=== PATIENT | female | born 1960 | race Hispanic/Latino ===

== ENCOUNTER → 2017-04-22 | Day surgery (SDC) | payer MEDICARE ==
[2017-04-18 14:47] LABS: HEMOGLOBIN 11.4 g/dL (12.0-16.0); MEAN CORPUSCULAR HEMOGLOBIN 32.5 pg (28-32); MEAN CORPUSCULAR HGB CONC 32.6 g/dL (31-35); MEAN CORPUSCULAR VOLUME 99.7 fL (81-99); RED BLOOD COUNT 3.51 x10e6/uL (3.6-5.1)
[2017-04-18 14:48] LABS: BASOPHILS % 0.4 % (0.0-1.0); EOSINOPHILS # (AUTO) 0.2 (0.0-0.4); EOSINOPHILS % 1.5 % (0.0-6.0); LYMPHOCYTES # (AUTO) 2.7 (1.0-3.2); LYMPHOCYTES % 25.2 % (18.0-39.1); MONOCYTES # (AUTO) 0.6 (0.2-0.8); MONOCYTES % 5.6 % (4.4-11.3); NEUTROPHILS # (AUTO) 7.2 (2.1-6.9); NEUTROPHILS % 66.9 % (38.7-80.0); PLATELET COUNT 244 x10e3/uL (140-360); RED CELL DISTRIBUTION WIDTH 13.6 % (11.7-14.4)
[~2017-04-22] MED LIST: ASPIRIN81 MG PO; BUMETANIDE1 MG PO; CARVEDILOL12.5 MG PO; CVS OMEGA-3 KR1 EACH PO; FENTANYL CITRATE/PF 100MCG/2 ML INJ ONE; FLEXERIL10 MG PO; FLUOXETINE HCL20 MG PO; GLUCAGON FOR INJ 1 MG VIAL ONE; GLUCOPHAGE XR500 MG PO; HUMALOG MI100 UNIT/4 SQ; HYDROCODON-ACE1 EAC4 PO; HYZAAR 100-251 EACH PO; LASIX40 MG PO; LEVEMIR100 UNIT/1 SQ; LEVOTHYROXINE50 MCG PO; LIDOCAINE HCL 2% LOCAL INJ 5 ML SDV VIAL INJ ONE; LORATADINE10 MG PO; LYRICA50 MG PO; MELOXICAM15 MG PO; METOPROLOL SUCC50 MG PO; MIDAZOLAM HCL 2 MG/2 ML VIAL ONE; MULTIVITAMINS1 EAC7 PO; NEURONTIN600 MG PO; NOVOLIN 70/30 SQ; PRILOSEC20 MG PO; PROPOFOL IV EMULSION 10 MG/ML 50 ML VIAL ONE; SIMVASTATIN40 MG PO; ULTRAM50 MG PO; VICTOZA 2-0.6 MG/0.1 SQ; VITAMIN B-121000 MCG PO; VITAMIN D5000 UNIT PO; [UNRECOGNIZED DRUG - OTHER] PO
--- NOTE | 2017-04-22 13:17 | Operative Report ---
DATE OF PROCEDURE: April 22, 2017 REFERRING PHYSICIAN: Dr. Reyes. PROCEDURE PERFORMED: Colonoscopy and polypectomy. INDICATIONS FOR COLONOSCOPY: Colorectal cancer screening. Personal history of colon polyps. MEDICATION: Patient was done under MAC. Please see anesthesiologist's note. PROCEDURE: With patient in the left lateral decubitus position, the flexible fiberoptic Olympus colonoscope was inserted into the rectum with ease and advanced all the way to the cecum. The scope was then withdrawn slowly. Mucosa overlying the cecum appeared to be within normal limits. One polyp was hot biopsied from the ascending colon. The transverse appeared to be within normal limits. Diverticular disease was noted to involve the descending colon and the sigmoid colon. One polyp was snared from the sigmoid colon. The rectum appeared to be within normal limits. The scope was then retroflexed into the distal rectum and moderate-sized internal hemorrhoids were noted, none of which was actively bleeding. The scope was then straightened out. The rectosigmoid area as well as the distal rectal area were decompressed. The scope was subsequently withdrawn. Patient tolerated the procedure well. IMPRESSION: 1. Ascending colon polyp hot biopsied. 2. Diverticulosis. 3. Sigmoid colon polyp snared. 4. Internal hemorrhoids, none actively bleeding. PLAN: Follow up histology. Initiate high-fiber low-fat diet. Initiate high-fiber supplement. Patient will need a followup colonoscopy in 3 years. Job#: [id number] EV CC: DR. REYES
== END | disposition home or self-care (01) ==
LOC: OR 07:51
PROVIDERS: ATTEND Internal Medicine Gastroenterology
DX: Z12.11 Encounter for screening for malignant neoplasm of colon (principal); D12.5 Benign neoplasm of sigmoid colon; K57.30 Diverticulosis of large intestine without perforation or abscess without bleeding; K62.5 Hemorrhage of anus and rectum; K64.8 Other hemorrhoids; G47.33 Obstructive sleep apnea (adult) (pediatric); I10 Essential (primary) hypertension; E11.9 Type 2 diabetes mellitus without complications; E03.9 Hypothyroidism, unspecified; F32.9 Major depressive disorder, single episode, unspecified; Z01.810 Encounter for preprocedural cardiovascular examination; Z01.812 Encounter for preprocedural laboratory examination; Z79.4 Long term (current) use of insulin
CPT/HCPCS: 36415 ×2; 45384; 45385; 82948; 85025; 93005; J1610; J2001; J2250; 45378

== ENCOUNTER 2017-07-27 07:54 | Inpatient (IN) | payer MEDICARE, OTHER ==
[~2017-07-27] VITALS: Ht 147.3 cm; Wt 130.2 kg
[~2017-07-27 07:54] MED LIST changes: -FENTANYL CITRATE/PF 100MCG/2 ML INJ ONE; -GLUCAGON FOR INJ 1 MG VIAL ONE; -LIDOCAINE HCL 2% LOCAL INJ 5 ML SDV VIAL INJ ONE; -MIDAZOLAM HCL 2 MG/2 ML VIAL ONE; -PROPOFOL IV EMULSION 10 MG/ML 50 ML VIAL ONE
[2017-07-27] MEDS ORDERED: HYDROMORPHONE 1MG/1ML INJ IV STA (09:02)
[2017-07-27 09:33] LABS: BASOPHILS % 0.3 % (0.0-1.0); EOSINOPHILS # (AUTO) 0.1 (0.0-0.4); EOSINOPHILS % 0.9 % (0.0-6.0); HEMATOCRIT 34.4 % (34.2-44.1); HEMOGLOBIN 11.2 g/dL (12.0-16.0); LYMPHOCYTES # (AUTO) 2.1 (1.0-3.2); LYMPHOCYTES % 19.2 % (18.0-39.1); MEAN CORPUSCULAR HEMOGLOBIN 32.1 pg (28-32); MEAN CORPUSCULAR HGB CONC 32.6 g/dL (31-35); MEAN CORPUSCULAR VOLUME 98.6 fL (81-99); MONOCYTES # (AUTO) 0.8 (0.2-0.8); MONOCYTES % 7.2 % (4.4-11.3); NEUTROPHILS # (AUTO) 7.8 (2.1-6.9); NEUTROPHILS % 72.1 % (38.7-80.0); PLATELET COUNT 208 x10e3/uL (140-360); RED BLOOD COUNT 3.49 x10e6/uL (3.6-5.1)
[2017-07-27] MEDS ORDERED: HYDROMORPHONE 2MG/ML INJ IV ONE (09:45)
[2017-07-27] MEDS ORDERED: OMEPRAZOLE40 MG PEG (09:55)
[2017-07-27] MEDS ORDERED: NOVOLIN R100 UNIT/1 SC (09:55)
[2017-07-27] MEDS ORDERED: SIMVASTATIN20 MG PO (09:55)
[2017-07-27] MEDS ORDERED: FERROUS SULFAT325 MG PO (09:55)
[2017-07-27] MEDS ORDERED: LOSARTAN POTASS25 MG PO (09:55)
[2017-07-27] MEDS ORDERED: BUPROPION XL150 MG PO (09:55)
[2017-07-27] MEDS ORDERED: LYRICA50 MG PO (09:55)
[2017-07-27 09:56] LABS: ALBUMIN 3.5 g/dL (3.5-5.0); ALBUMIN/GLOBULIN RATIO 0.7 (0.8-2.0); ANION GAP 15.5 mmol/L (8-16); CALCIUM 9.5 mg/dL (8.4-10.2); CREATININE, SERUM 1.21 mg/dL (0.57-1.11); POTASSIUM 3.5 mmol/L (3.5-5.1)
--- NOTE | 2017-07-27 10:07 | Diagnostic Imaging Report ---
PROCEDURE:X-RAY RIGHT FOOT, COMPLETE COMPARISON:None. INDICATIONS:RIGHT FOOT PAIN FINDINGS: There are no fractures, dislocations, lytic or blastic lesions. No bony erosions. Spurring of the calcaneus at the insertion of the plantar fascia is noted. The bones are well-mineralized. There is soft tissue swelling. CONCLUSION: No acute bony abnormality. Antony Amador D.O. Dictated by: Antony Amador D.O. on 07/27/2017 at 10:16 Electronically approved by: Antony Amador D.O. on 07/27/2017 at 10:16
[2017-07-27] MEDS ORDERED: SODIUM CHLORIDE 0.9% 1000ML 1,000 ML IV SCH (10:15)
[2017-07-27] MEDS ORDERED: IOPAMIDOL 370 MG/ML 200 ML INFUS..BTL INJ ONE (13:14)
[2017-07-27] MEDS ORDERED: SODIUM CHLORIDE 0.9% 50ML 50 ML ONE (13:14)
[2017-07-27] MEDS ORDERED: DEXTROSE 50% SYRINGE 50 ML IV STA (14:26)
[2017-07-27] MEDS ORDERED: DEXTROSE 50% SYRINGE 50 ML IV ONE (14:28)
--- NOTE | 2017-07-27 15:29 | Diagnostic Imaging Report ---
CT scan of the RIGHT FOOT, WITH injected contrast. TECHNIQUE: Standard departmental protocols were used. Post-contrast images were obtained after the intravenous injection of 100 cc of Isovue-370. Sagittal and coronal reformatted images were obtained. HISTORY: Hurting, query abscess COMPARISON: None available FINDINGS: Bones: No acute displaced fracture. Moderate plantar and calcaneal enthesophytes. Os trigonum. Joints: Minimal to mild scattered degenerative changes. Soft Tissues: Prominent soft tissue edema of the foot. No drainable fluid collection. IMPRESSION: 1. No soft tissue abscess. 2. Diffuse soft tissue edema. Signed by: Dr. Alcides Mendoza D.O., M.M.M. on 07/27/2017 3:26 PM
[2017-07-27] MEDS ORDERED: HYDROMORPHONE 1MG/1ML INJ IV PRN (15:30)
[2017-07-27] MEDS ORDERED: HYDROMORPHONE 2MG/ML INJ IV PRN ×2 (15:45)
[2017-07-27] MEDS: PIPER-TAZ 3.375 GM 50 ML IV SCH (15:55)
[2017-07-27] MEDS: PREGABALIN 50 MG CAP PO SCH (16:46)
[2017-07-27] MEDS: CARVEDILOL 12.5 MG TAB PO SCH (16:46)
[2017-07-27] MEDS ORDERED: INSULIN ISOPHANE HUMAN SQ SCH (17:00)
[2017-07-27] MEDS ORDERED: INSULIN REGULAR HUMAN SQ SCH (17:00)
[2017-07-27] MEDS: VANCOMYCIN 1GM/NS 250 ML 250 ML IV SCH (17:10)
[2017-07-27] MEDS: BUMETANIDE 1 MG TAB PO SCH (17:10)
[2017-07-27] MEDS: TRAMADOL HCL 50 MG TAB PO SCH (18:23)
--- NOTE | 2017-07-27 20:53 | History and Physical ---
CHIEF COMPLAINT: A 57-year-old lady comes in with right foot pain. HISTORY OF PRESENT ILLNESS: Ms. Toribio is a 57-year-old lady with history of diabetes mellitus, with history of CHF who was in her usual state of health until one day prior to admission the patient noticed that her foot was swelling up and the swelling was getting uncontrolled. The patient called her primary care physician's office and was told to come to the emergency room because they would not be able to do anything for pain. She came in and was found to have cellulitis of the right lower extremity and admitted for the same. PAST MEDICAL HISTORY: History of congestive heart failure, history of diabetes mellitus, history of hypothyroidism, history of reflux esophagitis, history of neuropathy, history of chronic pain, history of depression, low back pain, allergies, hyperlipidemia and history of vitamin B12 deficiency. She also has history of obstructive sleep apnea where she wears BiPAP chronically. She sees at [facility] for her congestive heart failure. HOME MEDICATIONS: Novolin R 100 units, Bumetanide 2 mg daily, levothyroxine 25 mcg daily, aspirin 81 mg daily, omeprazole 20 mg daily, Lyrica 100 mg 2 capsules twice a day, tramadol 50 mg daily, fluoxetine 20 mg daily, cyclobenzaprine 10 mg, loratadine 10 mg, carvedilol 25 mg 1 tablet twice a day, simvastatin 20 mg nightly, losartan 25 mg daily, metformin 500 mg 1 tablet 3 times a day, , vitamin B12, iron tablets. She also has O2, ipratropium and probiotics. Ipratropium XL 150 mg daily. ALLERGIES: PHENERGAN, ITCHING AND SWELLING IS NOTED. PAST SURGICAL HISTORY: Cholecystectomy and tonsillectomy. SOCIAL HISTORY: No ETOH, no IV drug abuse. 7 years ago. She lives by herself. REVIEW OF SYSTEMS: Negative for chest pain, some shortness of breath, no nausea, vomiting or diarrhea. No palpitations. No rectal bleeding. No hematochezia, no hematemesis. No diplopia and no blurry vision. PHYSICAL EXAMINATION GENERAL: The patient is alert and oriented x3. Her pain, she says, is controlled at this time with pain medication. VITAL SIGNS: Temperature 97.8, blood pressure 147/65, pulse 79, respirations of 20, pulse oximetry 94% initially on arrival. HEENT: Normocephalic, atraumatic. Pupils are reactive to light and accommodation. CVS: S1 and S2 normal. Regular rate and rhythm. ABDOMEN: Nontender and nondistended. LUNGS: Decreased air entry into the lung bases but otherwise clear. ABDOMEN: Nontender, nondistended. EXTREMITIES: Right lower extremity with swelling and edema and erythema, wrapping around the dorsum of the foot all the way to the bottom of the foot, extending into the mid foot area. There is no extending lymphangitis. Tenderness to touch and palpation. Cannot put weight on the foot at this time. LABORATORY DATA: White count is 10.82, hemoglobin 11.2. Chemistry with sodium of 144, creatinine 1.21. BUN 28. IMAGING: Foot x-ray shows no acute abnormalities and CT extremity shows no diffuse abscess and diffuse soft tissue edema. ASSESSMENT: 1. Cellulitis of the right lower extremity. 2. Acute kidney injury. 3. Leukocytosis. 4. Diabetes mellitus, uncontrolled. 5. Obstructive sleep apnea. 6. Hypertension. 7. Hyperlipidemia. PLAN: The patient has been put on vancomycin and Zosyn, which we will continue. Every 6 hours vancomycin trough will be done. Continue antibiotics. Will give her some fluids. Will continue all her home medications. Continue on sliding scale. Further recommendations depending on clinical course. . Keep her foot elevated. Continue monitoring the patient in the hospital. Job#: [id number]
[2017-07-27] MEDS: SIMVASTATIN 20 MG TAB PO SCH (22:18)
[2017-07-28] MEDS: PIPER-TAZ 3.375 GM 50 ML IV SCH ×3 (01:24→14:45)
[2017-07-28] MEDS: TRAMADOL HCL 50 MG TAB PO SCH ×4 (01:24→20:49)
[2017-07-28] MEDS: MULTIVITAMINS/MINERALS TAB PO SCH (06:46)
[2017-07-28] MEDS: LEVOTHYROXINE SODIUM 25 MCG TABLET PO SCH (06:46)
[2017-07-28 07:56] VITALS: BP 138/52
[2017-07-28] MEDS ORDERED: LEVOTHYROXINE SODIUM 50 MCG TAB PO SCH (09:00)
[2017-07-28] MEDS: BUPROPION HCL 150 MG TABCR PO SCH (10:30)
[2017-07-28] MEDS: BUMETANIDE 1 MG TAB PO SCH ×2 (10:30→15:01)
[2017-07-28] MEDS: FLUOXETINE HCL 20 MG CAP PO SCH (10:30)
[2017-07-28] MEDS: LORATADINE 10 MG TAB PO SCH (10:30)
[2017-07-28] MEDS: PANTOPRAZOLE SOD 40 MG TABEC PO SCH (10:30)
[2017-07-28] MEDS: FERROUS SULFATE 325 MG TAB PO SCH (10:30)
[2017-07-28] MEDS: ASPIRIN 81 MG CHEW TAB PO SCH (10:30)
[2017-07-28] MEDS: PREGABALIN 50 MG CAP PO SCH ×2 (10:31→15:01)
[2017-07-28] MEDS: CARVEDILOL 12.5 MG TAB PO SCH ×2 (10:32→15:01)
[2017-07-28] MEDS: LOSARTAN POTASSIUM 25 MG TAB PO SCH (10:32)
[2017-07-28] MEDS: CYANOCOBALAMIN 1,000 MCG TAB PO SCH (10:41)
[2017-07-28 13:36] VITALS: BP 137/93
[2017-07-28] MEDS: VANCOMYCIN 1GM/NS 250 ML 250 ML IV SCH (15:01)
[2017-07-28 16:05] VITALS: BP 145/63
[2017-07-28 19:35] VITALS: BP 138/85
[2017-07-28] MEDS ORDERED: DEXTROSE 50% SYRINGE 50 ML IV PRN (19:45)
[2017-07-28 20:00] VITALS: BP 104/44
[2017-07-28] MEDS: INSULIN REGULAR, HUMAN 100 UNIT/1 ML 3ML VIAL SQ SCH (20:49)
[2017-07-28] MEDS: SIMVASTATIN 20 MG TAB PO SCH (20:49)
[2017-07-29] VITALS (8 sets, daily range): BP systolic 99–140; BP diastolic 39–60
[2017-07-29] MEDS ORDERED: SODIUM CHLORIDE 0.9% 250ML 250 ML ONE (00:31)
[2017-07-29] MEDS: PIPER-TAZ 3.375 GM 50 ML IV SCH ×3 (00:41→16:00)
[2017-07-29] MEDS: TRAMADOL HCL 50 MG TAB PO SCH ×4 (01:40→21:18)
[2017-07-29] MEDS: LEVOTHYROXINE SODIUM 25 MCG TABLET PO SCH (06:33)
[2017-07-29] MEDS: MULTIVITAMINS/MINERALS TAB PO SCH (06:33)
[2017-07-29] MEDS: INSULIN REGULAR, HUMAN 100 UNIT/1 ML 3ML VIAL SQ SCH ×6 (07:30→22:53)
[2017-07-29] MEDS: PREGABALIN 50 MG CAP PO SCH ×2 (09:00→17:00)
[2017-07-29] MEDS: BUMETANIDE 1 MG TAB PO SCH ×2 (09:00→17:00)
[2017-07-29] MEDS: FERROUS SULFATE 325 MG TAB PO SCH (09:00)
[2017-07-29] MEDS: LORATADINE 10 MG TAB PO SCH (09:00)
[2017-07-29] MEDS: LOSARTAN POTASSIUM 25 MG TAB PO SCH (09:00)
[2017-07-29] MEDS: CYANOCOBALAMIN 1,000 MCG TAB PO SCH (09:00)
[2017-07-29] MEDS: PANTOPRAZOLE SOD 40 MG TABEC PO SCH (09:00)
[2017-07-29] MEDS: FLUOXETINE HCL 20 MG CAP PO SCH (09:00)
[2017-07-29] MEDS: BUPROPION HCL 150 MG TABCR PO SCH (09:00)
[2017-07-29] MEDS: CARVEDILOL 12.5 MG TAB PO SCH ×2 (09:00→17:00)
[2017-07-29] MEDS: ASPIRIN 81 MG CHEW TAB PO SCH (09:00)
[2017-07-29 09:28] LABS: BASOPHILS % 0.1 % (0.0-1.0); EOSINOPHILS # (AUTO) 0.2 (0.0-0.4); EOSINOPHILS % 2.8 % (0.0-6.0); HEMATOCRIT 29.3 % (34.2-44.1); HEMOGLOBIN 9.6 g/dL (12.0-16.0); LYMPHOCYTES # (AUTO) 1.8 (1.0-3.2); LYMPHOCYTES % 25.8 % (18.0-39.1); MEAN CORPUSCULAR HEMOGLOBIN 32.2 pg (28-32); MEAN CORPUSCULAR HGB CONC 32.8 g/dL (31-35); MEAN CORPUSCULAR VOLUME 98.3 fL (81-99); MONOCYTES # (AUTO) 0.5 (0.2-0.8); MONOCYTES % 7.1 % (4.4-11.3); NEUTROPHILS # (AUTO) 4.6 (2.1-6.9); NEUTROPHILS % 64.1 % (38.7-80.0); PLATELET COUNT 203 x10e3/uL (140-360); RED BLOOD COUNT 2.98 x10e6/uL (3.6-5.1); RED CELL DISTRIBUTION WIDTH 12.8 % (11.7-14.4)
[2017-07-29 09:44] LABS: ANION GAP 15.8 mmol/L (8-16); CALCIUM 8.7 mg/dL (8.4-10.2); CREATININE, SERUM 1.63 mg/dL (0.57-1.11); POTASSIUM 3.8 mmol/L (3.5-5.1)
[2017-07-29] MEDS: VANCOMYCIN 1GM/NS 250 ML 250 ML IV SCH (16:00)
[2017-07-29] MEDS: SIMVASTATIN 20 MG TAB PO SCH (21:18)
[2017-07-30] VITALS (7 sets, daily range): BP systolic 102–123; BP diastolic 36–68
[2017-07-30] MEDS: TRAMADOL HCL 50 MG TAB PO SCH ×4 (00:03→20:28)
[2017-07-30] MEDS: PIPER-TAZ 3.375 GM 50 ML IV SCH ×3 (00:25→16:00)
[2017-07-30] MEDS: LEVOTHYROXINE SODIUM 25 MCG TABLET PO SCH (05:38)
[2017-07-30] MEDS: MULTIVITAMINS/MINERALS TAB PO SCH (05:43)
[2017-07-30] MEDS: INSULIN REGULAR, HUMAN 100 UNIT/1 ML 3ML VIAL SQ SCH ×6 (07:30→20:46)
[2017-07-30] MEDS: ASPIRIN 81 MG CHEW TAB PO SCH (09:00)
[2017-07-30] MEDS: FERROUS SULFATE 325 MG TAB PO SCH (09:00)
[2017-07-30] MEDS: BUMETANIDE 1 MG TAB PO SCH ×2 (09:00→17:00)
[2017-07-30] MEDS: PREGABALIN 50 MG CAP PO SCH ×2 (09:00→17:00)
[2017-07-30] MEDS: CYANOCOBALAMIN 1,000 MCG TAB PO SCH (09:00)
[2017-07-30] MEDS: LOSARTAN POTASSIUM 25 MG TAB PO SCH (09:00)
[2017-07-30] MEDS: FLUOXETINE HCL 20 MG CAP PO SCH (09:00)
[2017-07-30] MEDS: BUPROPION HCL 150 MG TABCR PO SCH (09:00)
[2017-07-30] MEDS: PANTOPRAZOLE SOD 40 MG TABEC PO SCH (09:00)
[2017-07-30] MEDS: CARVEDILOL 12.5 MG TAB PO SCH ×2 (09:00→17:00)
[2017-07-30] MEDS: LORATADINE 10 MG TAB PO SCH (09:00)
[2017-07-30] MEDS: VANCOMYCIN 1GM/NS 250 ML 250 ML IV SCH (16:00)
[2017-07-30] MEDS: SIMVASTATIN 20 MG TAB PO SCH (20:28)
[2017-07-31] MEDS: PIPER-TAZ 3.375 GM 50 ML IV SCH ×4 (00:06→23:59)
[2017-07-31] MEDS: TRAMADOL HCL 50 MG TAB PO SCH ×4 (00:11→18:02)
[2017-07-31 00:29] VITALS: BP 104/57
[2017-07-31 05:05] VITALS: BP 125/57
[2017-07-31] MEDS: LEVOTHYROXINE SODIUM 25 MCG TABLET PO SCH (05:30)
[2017-07-31] MEDS: MULTIVITAMINS/MINERALS TAB PO SCH (05:30)
[2017-07-31] MEDS: INSULIN REGULAR, HUMAN 100 UNIT/1 ML 3ML VIAL SQ SCH ×6 (07:30→20:21)
[2017-07-31] MEDS: FERROUS SULFATE 325 MG TAB PO SCH (08:24)
[2017-07-31] MEDS: CARVEDILOL 12.5 MG TAB PO SCH ×2 (08:24→17:00)
[2017-07-31] MEDS: LORATADINE 10 MG TAB PO SCH (08:24)
[2017-07-31] MEDS: BUPROPION HCL 150 MG TABCR PO SCH (08:24)
[2017-07-31] MEDS: CYANOCOBALAMIN 1,000 MCG TAB PO SCH (08:24)
[2017-07-31] MEDS: PREGABALIN 50 MG CAP PO SCH ×2 (08:24→17:22)
[2017-07-31] MEDS: FLUOXETINE HCL 20 MG CAP PO SCH (08:24)
[2017-07-31] MEDS: ASPIRIN 81 MG CHEW TAB PO SCH (08:24)
[2017-07-31] MEDS: PANTOPRAZOLE SOD 40 MG TABEC PO SCH (08:24)
[2017-07-31] MEDS: BUMETANIDE 1 MG TAB PO SCH ×2 (08:24→17:21)
[2017-07-31] MEDS: LOSARTAN POTASSIUM 25 MG TAB PO SCH (08:24)
[2017-07-31 08:26] LABS: BASOPHILS % 0.3 % (0.0-1.0); EOSINOPHILS # (AUTO) 0.1 (0.0-0.4); EOSINOPHILS % 2.1 % (0.0-6.0); HEMATOCRIT 28.5 % (34.2-44.1); HEMOGLOBIN 9.3 g/dL (12.0-16.0); LYMPHOCYTES # (AUTO) 1.3 (1.0-3.2); LYMPHOCYTES % 20.5 % (18.0-39.1); MEAN CORPUSCULAR HEMOGLOBIN 32.4 pg (28-32); MEAN CORPUSCULAR HGB CONC 32.6 g/dL (31-35); MEAN CORPUSCULAR VOLUME 99.3 fL (81-99); MONOCYTES # (AUTO) 0.4 (0.2-0.8); MONOCYTES % 5.9 % (4.4-11.3); NEUTROPHILS # (AUTO) 4.5 (2.1-6.9); NEUTROPHILS % 70.9 % (38.7-80.0); PLATELET COUNT 182 x10e3/uL (140-360); RED BLOOD COUNT 2.87 x10e6/uL (3.6-5.1); RED CELL DISTRIBUTION WIDTH 12.6 % (11.7-14.4)
[2017-07-31 08:57] LABS: ANION GAP 12.8 mmol/L (8-16); CALCIUM 8.7 mg/dL (8.4-10.2); CREATININE, SERUM 1.44 mg/dL (0.57-1.11); POTASSIUM 3.8 mmol/L (3.5-5.1)
[2017-07-31 10:19] VITALS: BP 132/60
[2017-07-31] MEDS: SODIUM CHLORIDE 0.9% 1000ML 1,000 ML IV SCH (10:47)
[2017-07-31] MEDS: VANCOMYCIN 1GM/NS 250 ML 250 ML IV SCH (16:00)
[2017-07-31 20:00] VITALS: BP 113/64
[2017-07-31] MEDS: SIMVASTATIN 20 MG TAB PO SCH (20:20)
[2017-07-31 21:06] VITALS: BP 113/64
[2017-08-01] VITALS: BP 119/52
[2017-08-01] MEDS: TRAMADOL HCL 50 MG TAB PO SCH ×2 (00:16→07:00)
[2017-08-01] MEDS: SODIUM CHLORIDE 0.9% 1000ML 1,000 ML IV SCH (03:00)
[2017-08-01 04:00] VITALS: BP 110/45
[2017-08-01] MEDS: LEVOTHYROXINE SODIUM 25 MCG TABLET PO SCH (05:50)
[2017-08-01] MEDS: MULTIVITAMINS/MINERALS TAB PO SCH (05:50)
[2017-08-01] MEDS: INSULIN REGULAR, HUMAN 100 UNIT/1 ML 3ML VIAL SQ SCH ×3 (07:30→11:30)
[2017-08-01 07:36] LABS: CREATININE, SERUM 1.29 mg/dL (0.57-1.11)
[2017-08-01 08:13] VITALS: BP 137/52
[2017-08-01] MEDS: CYANOCOBALAMIN 1,000 MCG TAB PO SCH (08:45)
[2017-08-01] MEDS: PREGABALIN 50 MG CAP PO SCH (08:45)
[2017-08-01] MEDS: BUMETANIDE 1 MG TAB PO SCH (08:45)
[2017-08-01] MEDS: PANTOPRAZOLE SOD 40 MG TABEC PO SCH (08:45)
[2017-08-01] MEDS: PIPER-TAZ 3.375 GM 50 ML IV SCH (08:45)
[2017-08-01] MEDS: BUPROPION HCL 150 MG TABCR PO SCH (08:45)
[2017-08-01] MEDS: ASPIRIN 81 MG CHEW TAB PO SCH (08:45)
[2017-08-01] MEDS: LORATADINE 10 MG TAB PO SCH (08:45)
[2017-08-01] MEDS: FLUOXETINE HCL 20 MG CAP PO SCH (08:45)
[2017-08-01] MEDS: FERROUS SULFATE 325 MG TAB PO SCH (08:46)
[2017-08-01] MEDS: LOSARTAN POTASSIUM 25 MG TAB PO SCH (08:47)
[2017-08-01] MEDS: CARVEDILOL 12.5 MG TAB PO SCH (08:47)
[2017-08-01] MEDS ORDERED: CLINDAMYCIN HC150 MG PO (10:52)
[2017-08-01 12:04] VITALS: BP 110/67
== END 2017-08-01 13:12 | disposition home or self-care (01) | DRG 603 ==
LOC: ER 07:54 → ERHOLD 16:06 → MED/SURG3 07-28 15:33
PROVIDERS: ADMIT Family Medicine; ATTEND Family Medicine
DX: L03.115 Cellulitis of right lower limb (principal); E11.22 Type 2 diabetes mellitus with diabetic chronic kidney disease; N17.9 Acute kidney failure, unspecified; E11.42 Type 2 diabetes mellitus with diabetic polyneuropathy; I13.0 Hypertensive heart and chronic kidney disease with heart failure and stage 1 through stage 4 chronic kidney disease, or unspecified chronic kidney disease; N18.3 Chronic kidney disease, stage 3 (moderate); I50.9 Heart failure, unspecified; E11.65 Type 2 diabetes mellitus with hyperglycemia; Z79.4 Long term (current) use of insulin; G47.33 Obstructive sleep apnea (adult) (pediatric); E78.5 Hyperlipidemia, unspecified; E03.9 Hypothyroidism, unspecified; D64.9 Anemia, unspecified
CPT/HCPCS: 36415; 80048; 80053; 80202; 82948; 83605; 85025; 87040; 94660; 99284; J2543; J3370; J7030; J7050; J7799; Q9967

== ENCOUNTER 2018-12-26 22:25 | Emergency (ER) | payer MEDICARE ==
[~2018-12-26] VITALS: Ht 147.3 cm; Wt 130.2 kg
[~2018-12-26 22:25] MED LIST changes: +BUPROPION XL150 MG PO; +CLINDAMYCIN HC150 MG PO; +FERROUS SULFAT325 MG PO; +LOSARTAN POTASS25 MG PO; +NOVOLIN R100 UNIT/1 SC; +OMEPRAZOLE40 MG PEG; +SIMVASTATIN20 MG PO
--- OUTSIDE RECORDS SUMMARY | 2018-12-26 22:28 | XMS REPORT ---
Author Author Roger Duran Organization [employer] Address Unknown Phone Unavailable Care Team Providers Care Account Management Assistant Name Role Phone Roger Duran CP Unavailable Allergies, Adverse Reactions, Alerts Substance Reaction Event Type N.K.D.A. Info Not Available Non Drug Allergy Problems Problem Type Condition Code Onset Dates Condition Status Assessment Oxygen dependent Z99.81 Active Assessment Obesity hypoventilation syndrome E66.2 Active Problem Obesity hypoventilation syndrome E66.2 Active Assessment Precordial pain R07.2 Active Problem Oxygen dependent Z99.81 Active Assessment Heart failure, unspecified I50.9 Active Assessment Obstructive sleep apnea G47.33 Active Assessment Abnormal electrocardiogram R94.31 Active Assessment Hypertensive heart disease with heart failure I11.0 Active Medications Medication Code System Code Instructions Start Date End Date Status Dosage Carvedilol ND 39716447901 25 MG Orally Twice a day Active not defined Tramadol HCl ND 42144920385 50 MG Orally every 6 hrs Active 1 tablet as needed Meloxicam ND 59942105606 15 MG Orally Once a day Active 1 tablet Loratadine ND 12226293581 10 MG Orally Once a day Active 1 tablet CPAP NDC 0 Oral Active 1 tab Insulin NDC 0 70/30 Active 2 daily Cyclobenzaprine HCl ND 56513200259 10 MG Orally Three times a day Active 1 tablet Losartan Potassium ND 64011946422 25 MG Orally Once a day Active 1 tablet Pregabalin ND 07081509645 100 MG Orally Twice a day Active 1 capsule Levothyroxine Sodium ND 29699284242 25 MCG Orally Once a day Active 1 tablet Metformin HCl ND 40285137783 1000 MG Orally Twice a day Active 1 tablet with meals Krill Oil NDC 0 Orally Active not defined Aspirin ND 07557268373 81 MG Orally Once a day Active 1 tablet Omeprazole ND 41213439198 20 MG Orally Once a day Active 1 capsule Vitamin B-Complex ND 11169800209 Orally Active not defined Multivitamin NDC 0 Active as direct Bumetanide [facility] 86787690059 1 MG Orally Once a day Active 1 tablet Simvastatin [facility] 70466601129 20 MG Orally Once a day Active 1 tablet in the evening Vital Signs Date/Time: Mar 16, 2017 BMI 58.00 Index Weight 297 lbs Height 5'0 in Cardiac Monitoring Heart Rate 88 /min Blood Pressure Diastolic 64 mm Hg Blood Pressure Systolic 134 mm Hg Results No Known Results Summary Purpose [employer] Submission
--- OUTSIDE RECORDS SUMMARY | 2018-12-26 22:29 | XMS REPORT ---
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 Are you a: Former smoker Quit in 2007Mar 08, 2016 Alcohol: . None Mar 08, 2016 Summary Purpose eClinicalWorks Submission
--- OUTSIDE RECORDS SUMMARY | 2018-12-26 22:29 | XMS REPORT ---
Author Author [facility] Address Unknown Phone Unavailable Care Team Providers Care Film Drying Machine Operator Name Role Phone Angus LAZARO Unavailable Unavailable Problems This patient has no known problems. Allergies, Adverse Reactions, Alerts This patient has no known allergies or adverse reactions. Medications This patient has no known medications. Encounters Start Date/Time End Date/Time Encounter Type Admission Type Attending [facility] Care Facility Care Department Encounter ID 2017-07-20 00:00:00 2017-07-20 00:00:00 Outpatient [facility] [id number] 2017-06-06 00:00:00 2017-06-06 00:00:00 Outpatient [facility] [id number] 2017-06-02 14:42:59 2017-06-02 14:42:59 Outpatient [facility] [id number] 2017-05-10 00:00:00 2017-05-10 00:00:00 Outpatient [facility] [id number] 2017-05-02 13:49:43 2017-05-02 13:49:43 Outpatient [facility] [id number] 2017-05-02 12:51:25 2017-05-02 12:51:25 Outpatient [facility] [id number] 2017-04-13 08:48:34 2017-04-13 08:48:34 Outpatient [facility] [id number] 2017-03-30 00:00:00 2017-03-30 00:00:00 Outpatient [facility] [id number] 2017-03-23 10:00:11 2017-03-23 10:00:11 Outpatient [facility] [id number] 2017-03-20 00:00:00 2017-03-20 00:00:00 Outpatient [facility] [id number] 2017-03-09 00:00:00 2017-03-09 00:00:00 Outpatient [facility] [id number] 2017-03-08 00:00:00 2017-03-08 00:00:00 Outpatient [facility] [id number] 2017-02-17 15:42:22 2017-02-17 15:42:22 Outpatient [facility] [id number] 2017-01-30 10:06:03 2017-01-30 10:06:03 Outpatient [facility] [id number] 2017-01-19 00:00:00 2017-01-19 00:00:00 Outpatient [facility] [id number] 2017-01-04 12:46:57 2017-01-04 12:46:57 Outpatient [facility] [id number] 2016-12-02 10:50:46 2016-12-02 10:50:46 Outpatient [facility] [id number] Results Test Description Test Time Test Comments Text Results Atomic Results Result Comments CT FOOT RIGHT W [place] [address] Patient Name: ASHA ESCALANTE MR #: [id number] : 1960 Age/Sex: 57/F Req #: [id number] Adm Physician: Ordered by: VALENTINA LAZARO MD Report #: [id number] Location: ER Room/Bed: Procedure: [id number] CT/CT FOOT RIGHT W Exam Date: 07/27/17 Exam Time: 1125 REPORT STATUS: Signed CT scan of the RIGHT FOOT, WITH injected contrast. TECHNIQUE: Standard departmental protocols were used. Post-contrast images were obtained after the intravenous injection of 100 cc of Isovue-370. Sagittal and coronal reformatted images were obtained. HISTORY: Hurting, query abscess COMPARISON: None available FINDINGS: Bones: No acute displaced fracture. Moderate plantar and calcaneal enthesophytes. Os trigonum. Joints: Minimal to mild scattered degenerative changes. Soft Tissues: Prominent soft tissue edema of the foot. No drainable fluid collection. IMPRESSION: 1. No soft tissue abscess. 2. Diffuse soft tissue edema. Signed by: Dr. Jose Mendoza D.O., M.M.M. on 07/27/2017 3:26 PM Dictated By: JOSE MENDOZA DO 1526 Transcribed By: [place] on 07/27/17 1526 COPY TO: VALENTINA LAZARO MD FOOT RIGHT COMPLETE [place] [address] Patient Name: ASHA ESCALANTE MR #: [id number] : 1960 Age/Sex: 57/F Req #: [id number] Adm Physician: Ordered by: VALENTINA LAZARO MD Report #: [id number] Location: ER Room/Bed: Procedure: [id number] DX/FOOT RIGHT COMPLETE Exam Date: 07/27/17 Exam Time: 0845 REPORT STATUS: Signed PROCEDURE: X-RAY RIGHT FOOT, COMPLETE COMPARISON: None. INDICATIONS: RIGHT FOOT PAIN FINDINGS: There are no fractures, dislocations, lytic or blastic lesions. No bony erosions. Spurring of the calcaneus at the insertion of the plantar fascia is noted. The bones are well-mineralized. There is soft tissue swelling. CONCLUSION: No acute bony abnormality. Lisbeth Amador D.O. Dictated by: Lisbeth Amador D.O. on 07/27/2017 at 10:16 Electronically approved by: Lisbeth Amador D.O. on 07/27/2017 at 10:16 Dictated By: LISBETH AMADOR DO 1016 Transcribed By: KINA on 07/27/17 1016 COPY TO: VALENTINA LAZARO MD
--- OUTSIDE RECORDS SUMMARY | 2018-12-26 22:29 | XMS REPORT ---
Author Author Roger Duran Organization [employer] Address Unknown Phone Unavailable Care Team Providers Care Separator Operator Shellfish Meats Name Role Phone Roger Duran CP Unavailable [...] Instructions Start Date End Date Status Dosage Krill Oil NDC 0 Orally Active not defined Multivitamin NDC 0 Active as direct Simvastatin NDC 19009305522 20 MG Orally Once a day Active 1 tablet in the evening Loratadine ND 51539590525 10 MG Orally Once a day Active 1 tablet CPAP NDC 0 Oral Active 1 tab Pregabalin NDC 12657757295 100 MG Orally Twice a day Active 1 capsule Carvedilol ND 78675210065 25 MG Orally Twice a day Active not defined Losartan Potassium ND 89491509094 25 MG Orally Once a day Active 1 tablet Meloxicam ND 94193240424 15 MG Orally Once a day Active 1 tablet Levothyroxine Sodium NDC 29756822547 25 MCG Orally Once a day Active 1 tablet Metformin HCl ND 23324569852 1000 MG Orally Twice a day Active 1 tablet with meals Aspirin ND 49308232930 81 MG Orally Once a day Active 1 tablet Insulin NDC 0 70/30 Active 2 daily Cyclobenzaprine HCl ND 58912104474 10 MG Orally Three times a day Active 1 tablet Vitamin B-Complex ND 88532473023 Orally Active not defined Bumetanide ND 56454767950 1 MG Orally Once a day Active 1 tablet Tramadol HCl [facility] [place] [place] 42543290291 50 MG Orally every 6 hrs Active 1 tablet as needed Omeprazole [facility] [place] 15445365394 20 MG Orally Once a day Active 1 capsule Vital Signs Date/Time: November 22, 2016 BMI 60.34 Index Weight 309 lbs Height 5'0 in Cardiac Monitoring Heart Rate 77 /min Blood Pressure Diastolic 52 mm Hg Blood Pressure Systolic 128 mm Hg Results No Known Results Summary Purpose eClinicalWorks Submission
--- OUTSIDE RECORDS SUMMARY | 2018-12-26 22:29 | XMS REPORT ---
Author Author Roger Duran Organization [employer] Address Unknown Phone Unavailable Care Team Providers Care Secretary Of Police Name Role Phone Roger Duran CP Unavailable Allergies, Adverse Reactions, Alerts Substance Reaction Event Type N.K.D.A. 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 Active Assessment Acute systolic (congestive) heart failure I50.21 Active Assessment Hypertensive heart disease with heart failure I11.0 Active Assessment Other specified symptoms and signs involving the circulatory and respiratory systems R09.89 Active Medications Medication Code System Code Instructions Start Date End Date Status Dosage Krill Oil [facility] [address] Orally Active not defined Bumetanide ND 82251848778 1 MG Orally Once a day Active 1 tablet Meloxicam ND 84424307459 15 MG Orally Once a day Active 1 tablet Loratadine ND 50159067781 10 MG Orally Once a day Active 1 tablet Insulin ND 0 70/30 Active 2 daily Pregabalin ND 72039740066 100 MG Orally Twice a day Active 1 capsule Tramadol HCl ND 98055415161 50 MG Orally every 6 hrs Active 1 tablet as needed Vitamin B-Complex ND 41768406228 Orally Active not defined Losartan Potassium ND 11112325030 25 MG Orally Once a day Active 1 tablet Omeprazole ND 44727653396 20 MG Orally Once a day Active 1 capsule Cyclobenzaprine HCl ND 42355901732 10 MG Orally Three times a day Active 1 tablet CPAP NDC 0 Oral Active 1 tab Aspirin ND 20695282188 81 MG Orally Once a day Active 1 tablet Levothyroxine Sodium ND 91546931611 25 MCG Orally Once a day Active 1 tablet Simvastatin [facility] 96126316958 20 MG Orally Once a day Active 1 tablet in the evening Multivitamin NDC 0 Active as direct Carvedilol [facility] 57814319678 25 MG Orally Twice a day Active not defined Metformin HCl [facility] 22099852612 1000 MG Orally Twice a day Active 1 tablet with meals Vital Signs Date/Time: Aug 08, 2017 BMI 55.26 Index Weight 283 lbs Height 5'0 in Cardiac Monitoring Heart Rate 76 /min Blood Pressure Diastolic 52 mm Hg Blood Pressure Systolic 140 mm Hg Results No Known Results Summary Purpose eClinicalWorks Submission
--- OUTSIDE RECORDS SUMMARY | 2018-12-26 22:29 | XMS REPORT ---
Author Roger Montenegro Organization [employer] Address Unknown Phone Unavailable Care Team Providers Care Mold Sheet Cleaner Name Role Phone Roger Duran CP Unavailable Allergies, Adverse Reactions, Alerts Substance Reaction Event Type N.K.D.A. 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-hx of Hyperlipidemia,High BP,CHF,CP [place], [place] November 09, 2015 [place] Roger [place], [place] December 01, 2015 F/U TESTING [place] December 01, 2015 Problems Problem Type Condition ICD-9 Code Onset Dates Condition Status Assessment Abnormal electrocardiogram R94.31 Active Assessment Hypertensive heart disease with heart failure I11.0 Active Assessment Precordial pain R07.2 Active Assessment Heart failure, unspecified I50.9 Active Assessment Obstructive sleep apnea G47.33 Active Medications Medication Code System Code Instructions Start Date End Date Status Dosage Cyclobenzaprine HCl [facility] [address]-64 10 MG Orally Three times a day Active 1 tablet Bumetanide [facility] [address]-71 1 MG Orally Once a day Active 1 tablet Multivitamin Unknown 0 Active as direct Levothyroxine Sodium [facility] [address]-83 25 MCG Orally Once a day Active 1 tablet Krill Oil Unknown 0 Orally Active Unknown Carvedilol [facility] [address]-82 25 MG Orally Twice a day Active Unknown Aspirin [facility] [address]-74 81 MG Orally Once a day Active 1 tablet CPAP Unknown 0 Oral Active 1 tab Metformin HCl [facility] [address]-55 500 MG Orally Twice a day Active 1 tablet with meals Loratadine [facility] [address]-63 10 MG Orally Once a day Active 1 tablet Vitamin B-Complex [facility] [address] Orally Active Unknown Pregabalin [facility] [address]-88 100 MG Orally Twice a day Active 1 capsule Insulin Unknown 0 70/30 Active 2 daily Tramadol HCl [facility] [address]-53 50 MG Orally every 6 hrs Active 1 tablet as needed Omeprazole [facility] [address]-68 20 MG Orally Once a day Active 1 capsule Simvastatin [facility] [address]-32 20 MG Orally Once a day Active 1 tablet in the evening Social History Social History Element Qualifiers Date Reported Smoking: . Are you a: Former smoker Quit in 2007Mar 08, 2016 Alcohol: . None Mar 08, 2016 Vital Signs Date/Time: Mar 08, 2016 Weight 329 lbs Cardiac Monitoring Heart Rate 86 /min Blood Pressure Diastolic 40 mm Hg Blood Pressure Systolic 146 mm Hg Summary Purpose eClinicalWorks Submission
--- OUTSIDE RECORDS SUMMARY | 2018-12-26 22:29 | XMS REPORT ---
Author Author Roger Duran Organization [employer] Address Unknown Phone Unavailable Care Team Providers Care Licensed Pharmacist Name Role Phone Roger Duran CP Unavailable Allergies, Adverse Reactions, Alerts Substance Reaction Event Type N.K.D.A. Info Not Available Non Drug Allergy Problems Problem Type Condition Code Onset Dates Condition Status Problem Obesity hypoventilation syndrome E66.2 Active Assessment Precordial pain R07.2 Active Problem Oxygen dependent Z99.81 Active Assessment Heart failure, unspecified I50.9 Active Assessment Obstructive sleep apnea G47.33 Active Assessment Abnormal electrocardiogram R94.31 Active Assessment Hypertensive heart disease with heart failure I11.0 Active Medications Medication Code System Code Instructions Start Date End Date Status Dosage Krill Oil NDC 0 Orally Active not defined Tramadol HCl ND 80515935502 50 MG Orally every 6 hrs Active 1 tablet as needed Meloxicam ND 56588915635 15 MG Orally Once a day Active 1 tablet Levothyroxine Sodium ND 80272050783 25 MCG Orally Once a day Active 1 tablet Aspirin ND 49739990166 81 MG Orally Once a day Active 1 tablet Pregabalin ND 59796930090 100 MG Orally Twice a day Active 1 capsule Bumetanide ND 75022986205 1 MG Orally Once a day Active 1 tablet Vitamin B-Complex ND 44862574728 Orally Active not defined Losartan Potassium ND 43532518748 25 MG Orally Once a day Active 1 tablet Cyclobenzaprine HCl ND 78659642100 10 MG Orally Three times a day Active 1 tablet Omeprazole ND 43547430677 20 MG Orally Once a day Active 1 capsule CPAP NDC 0 Oral Active 1 tab Insulin NDC 0 70/30 Active 2 daily Loratadine ND 13306314521 10 MG Orally Once a day Active 1 tablet Simvastatin ND 44420132381 20 MG Orally Once a day Active 1 tablet in the evening Multivitamin NDC 0 Active as direct Carvedilol ND 61891514644 25 MG Orally Twice a day Active not defined Metformin HCl [facility] 63334148051 1000 MG Orally Twice a day Active 1 tablet with meals Vital Signs Date/Time: September 21, 2016 BMI 60.73 Index Weight 311 lbs Height 5'0 in Cardiac Monitoring Heart Rate 75 /min Blood Pressure Diastolic 54 mm Hg Blood Pressure Systolic 126 mm Hg Results No Known Results Summary Purpose eClinicalWorks Submission
--- OUTSIDE RECORDS SUMMARY | 2018-12-26 22:29 | XMS REPORT ---
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 Active Assessment Atheroscler of [place] artery of both legs with intermit claudication I70.213 Active Assessment Acute systolic (congestive) heart failure I50.21 Active Assessment Hypertensive heart disease with heart failure I11.0 Active Assessment Other specified symptoms and signs involving the circulatory and respiratory systems R09.89 Active Medications Medication Code System Code Instructions Start Date End Date Status Dosage Carvedilol ND 94733971651 25 MG Orally Twice a day Active not defined Multivitamin NDC 0 Active as direct Losartan Potassium ND 98230329280 25 MG Orally Once a day Active 1 tablet Omeprazole ND 79894133020 20 MG Orally Once a day Active 1 capsule Aspirin ND 36715130857 81 MG Orally Once a day Active 1 tablet Pregabalin ND 45601037522 100 MG Orally Twice a day Active 1 capsule Tramadol HCl ND 39915729414 50 MG Orally every 6 hrs Active 1 tablet as needed Simvastatin ND 93133842863 20 MG Orally Once a day Active 1 tablet in the evening Vitamin B-Complex ND 33016256081 Orally Active not defined Metformin HCl ND 36913300078 1000 MG Orally Twice a day Active 1 tablet with meals Levothyroxine Sodium ND 55397439350 25 MCG Orally Once a day Active 1 tablet Insulin NDC 0 70/30 Active 2 daily CPAP NDC 0 Oral Active 1 tab Loratadine ND 79848961354 10 MG Orally Once a day Active 1 tablet Meloxicam [facility] 39002332651 15 MG Orally Once a day Active 1 tablet Bumetanide [facility] 30765313667 1 MG Orally Once a day Active 1 tablet Krill Oil [facility] [address] Orally Active not defined Cyclobenzaprine HCl [facility] 24125238912 10 MG Orally Three times a day Active 1 tablet Vital Signs Date/Time: November 07, 2017 BMI 56.63 Index Weight 290 lbs Height 5'0 in Cardiac Monitoring Heart Rate 67 /min Blood Pressure Diastolic 58 mm Hg Blood Pressure Systolic 136 mm Hg Results No Known Results Summary Purpose [employer] Submission
--- OUTSIDE RECORDS SUMMARY | 2018-12-26 22:29 | XMS REPORT ---
Author Author Roger Duran Organization [employer] Address Unknown Phone Unavailable Care Team Providers Care Flooring Mechanic Name Role Phone Roger Duran CP Unavailable [...] Instructions Start Date End Date Status Dosage Pregabalin ND 46279758465 100 MG Orally Twice a day Active 1 capsule CPAP NDC 0 Oral Active 1 tab Tramadol HCl ND 12592759003 50 MG Orally every 6 hrs Active 1 tablet as needed Krill Oil NDC 0 Orally Active not defined Cyclobenzaprine HCl ND 14023810526 10 MG Orally Three times a day Active 1 tablet Simvastatin ND 63433801658 20 MG Orally Once a day Active 1 tablet in the evening Loratadine ND 89256816425 10 MG Orally Once a day Active 1 tablet Bumetanide ND 82931749833 1 MG Orally Once a day Active 1 tablet Aspirin ND 11798437122 81 MG Orally Once a day Active 1 tablet Carvedilol ND 83734988736 25 MG Orally Twice a day Active not defined Levothyroxine Sodium ND 77539451945 25 MCG Orally Once a day Active 1 tablet Multivitamin NDC 0 Active as direct Omeprazole NDC 36171436359 20 MG Orally Once a day Active 1 capsule Insulin NDC 0 70/30 Active 2 daily Metformin HCl ND 91911506525 500 MG Orally Twice a day Active 1 tablet with meals Vitamin B-Complex ND 35571955803 Orally Active not defined Vital Signs Date/Time: Jun 07, 2016 BMI 61.71 Index Weight 316 lbs Height 5'0 in Cardiac Monitoring Heart Rate 82 /min Blood Pressure Diastolic 58 mm Hg Blood Pressure Systolic 138 mm Hg Results No Known Results Summary Purpose [employer] Submission
--- OUTSIDE RECORDS SUMMARY | 2018-12-26 22:29 | XMS REPORT ---
Author Author Roger Duran Organization [employer] Address Unknown Phone Unavailable Care Team Providers Care Band Saw Runner Name Role Phone Roger Duran CP Unavailable [...] Date End Date Status Dosage Pregabalin ND 79452362858 100 MG Orally Twice a day Active 1 capsule Levothyroxine Sodium ND 53742117486 25 MCG Orally Once a day Active 1 tablet Krill Oil NDC 0 Orally Active not defined Vitamin B-Complex ND 19923615772 Orally Active not defined Cyclobenzaprine HCl ND 35283797094 10 MG Orally Three times a day Active 1 tablet Aspirin ND 20693912803 81 MG Orally Once a day Active 1 tablet Loratadine ND 16997167245 10 MG Orally Once a day Active 1 tablet Multivitamin NDC 0 Active as direct Bumetanide ND 90836215108 1 MG Orally Once a day Active 1 tablet CPAP NDC 0 Oral Active 1 tab Insulin NDC 0 70/30 Active 2 daily Tramadol HCl ND 36262227161 50 MG Orally every 6 hrs Active 1 tablet as needed Omeprazole ND 32888913494 20 MG Orally Once a day Active 1 capsule Losartan Potassium ND 38768367512 25 MG Orally Once a day Active 1 tablet Carvedilol ND 68640028542 25 MG Orally Twice a day Active not defined Simvastatin ND 25062649521 20 MG Orally Once a day Active 1 tablet in the evening Metformin HCl [facility] 91020555224 1000 MG Orally Twice a day Active 1 tablet with meals Meloxicam [facility] 84231400621 15 MG Orally Once a day Active 1 tablet Vital Signs Date/Time: Jun 01, 2017 BMI 56.44 Index Weight 289 lbs Height 5'0 in Cardiac Monitoring Heart Rate 75 /min Blood Pressure Diastolic 72 mm Hg Blood Pressure Systolic 120 mm Hg Results No Known Results Summary Purpose [employer] Submission
--- OUTSIDE RECORDS SUMMARY | 2018-12-26 22:29 | XMS REPORT ---
Author Roger Montenegro Organization [employer] Address Unknown Phone Unavailable Care Team Providers Care Automotive Dismantler Name Role Phone Roger Duran CP Unavailable Allergies, Adverse Reactions, Alerts Substance Reaction Event Type N.K.D.A. 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-hx of Hyperlipidemia,High BP,CHF,CP Roger Duran MD, [place] [...] Start Date End Date Status Dosage Pregabalin [facility] [address]-96 100 MG Orally Twice a day Active 1 capsule Simvastatin [facility] [address]-96 20 MG Orally Once a day Active 1 tablet in the evening Bumetanide [facility] [address]-09 1 MG Orally Once a day Active 1 tablet Aspirin [facility] [address]-36 81 MG Orally Once a day Active 1 tablet Carvedilol [facility] [address]-99 25 MG Orally Active Unknown Insulin Unknown 0 70/30 Active 2 daily Cyclobenzaprine HCl [facility] [address]-48 10 MG Orally Three times a day Active 1 tablet Tramadol HCl [facility] [address]-28 50 MG Orally every 6 hrs Active 1 tablet as needed Vitamin B-Complex [facility] [address]35[address] Orally Active Unknown Multivitamin Unknown 0 Active as direct Loratadine [facility] [address]-00 10 MG Orally Once a day Active 1 tablet Krill Oil Unknown 0 Orally Active Unknown Omeprazole [facility] [address]-89 20 MG Orally Once a day Active 1 capsule Levothyroxine Sodium [facility] [address]-21 25 MCG Orally Once a day Active 1 tablet Metformin HCl [facility] [address]-38 500 MG Orally Twice a day Active 1 tablet with meals CPAP Unknown 0 Oral Active 1 tab Social History Social History Element Qualifiers Date Reported Smoking: . Are you a: Former smoker Quit in 2007Mar 08, 2016 Alcohol: . None Mar 08, 2016 Vital Signs Date/Time: December 01, 2015 Weight 335 lbs Cardiac Monitoring Heart Rate 82 /min Blood Pressure Diastolic 68 mm Hg Blood Pressure Systolic 132 mm Hg Summary Purpose [employer] Submission
--- OUTSIDE RECORDS SUMMARY | 2018-12-26 22:29 | XMS REPORT ---
Author Author Roger Duran Organization [employer] Address Unknown Phone Unavailable Care Team Providers Care Armature Coil Winder Name Role Phone Roger Duran CP Unavailable Allergies, Adverse Reactions, Alerts Substance Reaction Event Type N.K.D.A. 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-hx of Hyperlipidemia,High BP,CHF,CP Roger Duran MD, [place] November 09, 2015 Problems Problem Type Condition ICD-9 Code Onset Dates Condition Status Assessment Obstructive sleep apnea G47.33 Active Assessment Hypertensive heart disease with heart failure I11.0 Active Assessment Heart failure, unspecified I50.9 Active Assessment Abnormal electrocardiogram R94.31 Active Assessment Other symptoms involving cardiovascular system R09.89 Active Assessment Precordial pain R07.2 Active Assessment Pure hypercholesterolemia E78.0 Active Assessment Hypothyroidism E03.9 Active Assessment Atheroscler of [place] artery of both legs with intermit claudication I70.213 Active Assessment DM w/o complication type II, uncontrolled E11.65 Active Assessment Shortness of breath R06.02 Active Assessment GERD (gastroesophageal reflux disease) K21.9 Active Assessment Obesity E66.9 Active Medications Medication Code System Code Instructions Start Date End Date Status Dosage Krill Oil Unknown 0 Orally Active Unknown CPAP Unknown 0 Oral Active 1 tab Levothyroxine Sodium [facility] [address]-83 25 MCG Orally Once a day Active 1 tablet Bumetanide [facility] [address]-98 1 MG Orally Once a day Active 1 tablet Metformin HCl [facility] [address]-02 500 MG Orally Twice a day Active 1 tablet with meals Aspirin [facility] [address]-01 81 MG Orally Once a day Active 1 tablet Simvastatin [facility] [address]-79 20 MG Orally Once a day Active 1 tablet in the evening Loratadine [facility] [address]-49 10 MG Orally Once a day Active 1 tablet Tramadol HCl [facility] [address]-39 50 MG Orally every 6 hrs Active 1 tablet as needed Cyclobenzaprine HCl [facility] [address]-52 10 MG Orally Three times a day Active 1 tablet Insulin Unknown 0 70/30 Active 2 daily Carvedilol [facility] [address]-92 25 MG Orally Active Unknown Pregabalin [facility] [address]-14 100 MG Orally Twice a day Active 1 capsule Multivitamin Unknown 0 Active as direct Vitamin B-Complex [facility] [address] Orally Active Unknown Omeprazole [facility] [address]-49 20 MG Orally Once a day Active 1 capsule Social History Social History Element Qualifiers Date Reported Smoking: . Are you a: Former smoker Quit in 2007Mar 08, 2016 Alcohol: . None Mar 08, 2016 Vital Signs Date/Time: November 09, 2015 Weight 334 lbs Cardiac Monitoring Heart Rate 80 /min Blood Pressure Diastolic 66 mm Hg Blood Pressure Systolic 140 mm Hg Summary Purpose [employer]Works Submission
--- OUTSIDE RECORDS SUMMARY | 2018-12-26 22:29 | XMS REPORT ---
Author Author Roger Duran Organization [employer] Address Unknown Phone Unavailable Care Team Providers Care Electrolysis Engineer Name Role Phone Roger Duran CP Unavailable [...] Instructions Start Date End Date Status Dosage Tramadol HCl [facility] 80953084267 50 MG Orally every 6 hrs Active 1 tablet as needed Carvedilol ND 39547081609 25 MG Orally Twice a day Active not defined Vitamin B-Complex [facility] 58251598210 Orally Active not defined Levothyroxine Sodium ND 28166542861 25 MCG Orally Once a day Active 1 tablet CPAP NDC 0 Oral Active 1 tab Losartan Potassium ND 27147205722 25 MG Orally Once a day Active 1 tablet Bumetanide ND 83136364664 1 MG Orally Once a day Active 1 tablet Meloxicam ND 45660753900 15 MG Orally Once a day Active 1 tablet Pregabalin ND 22490412614 100 MG Orally Twice a day Active 1 capsule Omeprazole ND 45016524244 20 MG Orally Once a day Active 1 capsule Cyclobenzaprine HCl ND 09710754698 10 MG Orally Three times a day Active 1 tablet Aspirin ND 97838640315 81 MG Orally Once a day Active 1 tablet Insulin NDC 0 70/30 Active 2 daily Loratadine ND 10718153055 10 MG Orally Once a day Active 1 tablet Simvastatin ND 86045402788 20 MG Orally Once a day Active 1 tablet in the evening Krill Oil NDC 0 Orally Active not defined Multivitamin NDC 0 Active as direct Metformin HCl [facility] 25319856245 1000 MG Orally Twice a day Active 1 tablet with meals Vital Signs Date/Time: Jul 25, 2017 BMI 55.46 Index Weight 284 lbs Height 5'0 in Cardiac Monitoring Heart Rate 79 /min Blood Pressure Diastolic 54 mm Hg Blood Pressure Systolic 130 mm Hg Results No Known Results Summary Purpose [employer]Works Submission
--- NOTE | 2018-12-26 23:43 | Diagnostic Imaging Report ---
EXAMINATION: PA and lateral views of the chest. COMPARISON: Nov 05 2011 CLINICAL HISTORY: chest pain DISCUSSION: Lines/tubes: None. Lungs: The lungs are well inflated and clear. No pneumonia or pulmonary edema. Pleura: No pleural effusion or pneumothorax. Heart and mediastinum: The cardiomediastinal silhouette is normal. Bones and soft tissues: No acute bony abnormalities. IMPRESSION: No acute cardiopulmonary abnormalities. Signed by: Dr. Pavan Casey M.D. on 12/26/2018 11:40 PM
--- NOTE | 2018-12-26 23:45 | Diagnostic Imaging Report ---
Exam: right hip 2 views History: pain Comparison: None. Findings: No fracture or malalignment. Joint spaces preserved. No abnormal soft tissue calcification or soft tissue defect. Impression: No acute osseous abnormality Signed by: Dr. Pavan Casey M.D. on 12/26/2018 11:42 PM
== END 2018-12-27 00:42 | disposition home or self-care (01) ==
LOC: ER 22:25
DX: R07.89 Other chest pain (principal); R06.00 Dyspnea, unspecified; M25.551 Pain in right hip; W07.XXXA Fall from chair, initial encounter; I10 Essential (primary) hypertension; E11.9 Type 2 diabetes mellitus without complications; I50.9 Heart failure, unspecified; E03.9 Hypothyroidism, unspecified; K21.9 Gastro-esophageal reflux disease without esophagitis; E78.5 Hyperlipidemia, unspecified
CPT/HCPCS: 71046; 93005; 99284

== ENCOUNTER 2019-09-23 22:45 | Emergency (ER) | payer MEDICARE ==
[~2019-09-23] VITALS: Ht 147.3 cm; Wt 116.1 kg
[2019-09-24] MEDS ORDERED: DIAZEPAM 5 MG TAB PO ONE
[2019-09-24] MEDS ORDERED: HYDROCODONE/APAP 10MG-325MG TAB PO ONE
--- NOTE | 2019-09-24 00:58 | Diagnostic Imaging Report ---
EXAMINATION: CHEST SINGLE (PORTABLE) INDICATION: Short of breath, follow COMPARISON: Chest x-ray 07/29/2019 FINDINGS: TUBES and LINES: Right IJ central venous catheter, tip in the low SVC. LUNGS: Low lung volumes. Prominent central pulmonary vasculature. Mild prominence of pulmonary interstitial lung markings. PLEURA: No pleural effusion or pneumothorax. HEART AND MEDIASTINUM: Cardiac size is mildly enlarged. BONES AND SOFT TISSUES: No acute osseous lesion. Soft tissues are unremarkable. Degenerative changes in the spine and shoulders. UPPER ABDOMEN: No free air under the diaphragm. IMPRESSION: Mild cardiomegaly and pulmonary vascular congestion, pulmonary interstitial edema is possible. Signed by: Kenan Valencia DO on 09/24/2019 12:55 AM
--- NOTE | 2019-09-24 01:00 | Diagnostic Imaging Report ---
X-ray right shoulder 2 views HISTORY: Pain. COMPARISON: None available. FINDINGS: Right IJ central venous catheter, tip in the low SVC. Bones: No acute displaced fracture. Osseous alignment is within normal limits. Joints: Degenerative changes in the acromioclavicular and glenohumeral joint. Soft tissues: The soft tissues appear unremarkable. IMPRESSION: No acute radiographic abnormality. Degenerative changes in the shoulder. Signed by: Kenan Valencia DO on 09/24/2019 12:56 AM
--- NOTE | 2019-09-24 01:01 | Diagnostic Imaging Report ---
X-ray left knee 3 views - 3 views HISTORY: Pain. COMPARISON: None available. FINDINGS: Bones: No acute displaced fracture. Osseous alignment is within normal limits. Joints: Tricompartmental osteophytes. Joint space narrowing of the medial tibiofemoral and patellofemoral compartments. Soft tissues: Soft tissue swelling about the knee. IMPRESSION: No acute radiographic osseous abnormality. Degenerative changes in the knee. Soft tissue swelling about the knee. Signed by: Kenan Valencia DO on 09/24/2019 12:58 AM
[2019-09-24 01:10] VITALS: BP 122/50
== END 2019-09-24 01:50 | disposition home or self-care (01) ==
LOC: ER 22:45
DX: S20.219A Contusion of unspecified front wall of thorax, initial encounter (principal); S80.02XA Contusion of left knee, initial encounter; M25.511 Pain in right shoulder; W01.0XXA Fall on same level from slipping, tripping and stumbling without subsequent striking against object, initial encounter; M17.0 Bilateral primary osteoarthritis of knee; I10 Essential (primary) hypertension; E11.22 Type 2 diabetes mellitus with diabetic chronic kidney disease; N18.6 End stage renal disease; Z99.2 Dependence on renal dialysis; F32.9 Major depressive disorder, single episode, unspecified; K21.9 Gastro-esophageal reflux disease without esophagitis
CPT/HCPCS: 71045; 99283

== ENCOUNTER 2019-11-21 13:31 | Inpatient (IN) | payer MEDICARE, OTHER ==
[~2019-11-21] VITALS: Ht 144.8 cm; Wt 126.6 kg
--- NOTE | 2019-11-21 | NUR ---
Received patient from day nurse, patient is alert and oriented x4. Safety and fall precautions maintained as per hospital protocol: bed in lowest position and locked, needed items beside bed and call villarreal close to patient. patient is currently stable will continue to monitor.
--- OUTSIDE RECORDS SUMMARY | 2019-11-21 13:34 | XMS REPORT | Clinical Summary ---
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 Active KRILL OIL OR Take by 0 mouth daily. Active MULTIVIT Take by 0 &MINERALS/FERROUS FUM mouth. (MULTI VITAMIN OR) Active Vitamin B Comp & C No.4 Take by 0 (SUPER B COMPLEX + C) 150 mouth daily. mg Tab Active blood glucose Use as 1 Kit 0 meterIndications: directed. 4 Diabetes mellitus, type II Active Cholecalciferol, Vitamin Take 1 tablet 0 D3, 5,000 unit Tab by mouth daily. Active ketoconazole (NIZORAL) 2 Apply to 30 g 0 0 % topical affected area 4 creamIndications: Tinea daily. pedis Active blood glucose Use as 1 Kit 0 meterIndications: DM directed.. 4 (diabetes mellitus) Active lancets 28 Use as 100 Each 11 gaugeIndications: directed 3 4 Uncontrolled diabetes times a day. mellitus Active aspirin (ASPIRIN) 81 mg Chew and 90 tablet 3 chewable swallow 1 5 tabletIndications: Morbid tablet by obesity, On home O2, DM mouth daily. (diabetes mellitus), HTN (hypertension), CHF exacerbation, Obesity hypoventilation syndrome, Uncontrolled diabetes mellitus, Knee pain, Essential hypertension, benign, GERD (gastroesophageal reflux disease), Hyperlipidemia, Heart failure with preserved left ventricular function (HFpEF), MDD (major depressive disorder), Pulmonary edema, Diastolic heart failure, Respiratory failure, Respiratory failure with hypercapnia, Hypokalemia, Anemia, Depression, Hypothyroid Active fluticasone (FLONASE) 50 Use 2 Sprays 16 g 6 mcg/actuation nasal in each 5 sprayIndications: nostril Allergic rhinitis daily. Active CPAP SupplyIndications: Mask (fit to 1 Device 0 0 MICHEAL on CPAP patient), 5 tubing & other supplies as needed to treat MICHEAL.. Active INSULIN SYRINGE 1mL Use to inject 100 Each 10/01 30GX5/16" insulin Use 5 syringe-needleIndications to inject : Uncontrolled diabetes insulin (5 mellitus injections/da y). Use a new syringe each time. Active blood glucose test Use to check 100 Each stripsIndications: blood glucose 5 Uncontrolled diabetes 3 times a mellitus day. Active amoxicillin (AMOXIL) 500 Take four 30 capsule 0 0 mg capsuleIndications: capsules by 5 Prophylactic antibiotic mouth one hour prior to dental appointment.. Active CPAP SupplyIndications: Mask (fit to 1 Device 0 0 Obstructive sleep apnea, patient), 5 CPAP (continuous positive tubing & airway pressure) other dependence supplies as needed to treat MICHEAL.. Active mometasone (NASONEX) 50 2 Sprays by 17 g 1 mcg/actuation nasal each nostril 5 sprayIndications: route daily. Allergic rhinitis, cause unspecified Active Insulin REGULAR Inject 15 60 mL 3 CONCENTRATED (HUMULIN R units under 5 CONCENTRATED) 500 unit/mL the dkin at injectionIndications: breakfast and Type 2 diabetes mellitus dinner with diabetic neuropathy Active Syringe, Disposable, by 10 Syringe 1 06/10 (GLASPAK TB SYRINGE 1CC) Misc.(Non-Martínez 5 1 mL SyrgIndications: g; Combo Type 2 diabetes mellitus Route) route with diabetic neuropathy To inject 0.15 cc sub Q U500 insulin breakfast and dinner. Active INSULIN SYRINGE 1mL Use 5 times 150 Each 1 30GX5/16" daily. 6 syringe-needleIndications : Uncontrolled diabetes mellitus Active blood glucose test 2 times daily 50 Each 3 09/10 stripsIndications: to test blood 6 Uncontrolled diabetes sugar. mellitus Active blood glucose test 2 times daily 180 Each 3 10/14 stripsIndications: to test blood 6 Uncontrolled diabetes sugar. mellitus Active insulin REGULAR (NOVOLIN Inject under 30 mL 0 R, HUMULIN R) 100 unit/mL the skin as 6 injectionIndications: directed per Uncontrolled type 2 sliding diabetes mellitus without scale: (BS complication, with 200 - 300 : long-term current use of 10 units, BS insulin 301 - 400: 15 units, BS > 401: 20 units). Active blood glucose test 2 times daily 100 Each 3 02/10 stripsIndications: to test blood 6 Uncontrolled type 2 sugar. diabetes mellitus without complication, with long-term current use of insulin Active insulin 70/30 NPH - Inject 100 0 REGULAR (NOVOLIN 70/30) Units under 100 unit/mL the skin 2 injectionIndications: times daily Diabetes mellitus type 2, (before insulin dependent meals). Active blood glucose Use as 1 Kit 0 meterIndications: directed.. 7 Diabetes mellitus type 2, insulin dependent Active blood glucose test 2 times daily 100 Each 3 09/12 stripsIndications: to test blood 7 Diabetes mellitus type 2, sugar. insulin dependent Active lancetsIndications: by 100 Each Diabetes mellitus type 2, MISCELLANEOUS 7 insulin dependent route 2 times daily. Active carvedilol (COREG) 12.5 Take 1 tablet 180 tablet 1 mg tabletIndications: by mouth 2 7 Essential hypertension, times daily Chronic diastolic heart (with meals). failure Active INSULIN SYRINGE 0.5mL Use to inject 3 Box 3 30GX5/16" (ULTRA COMFORT) medication 3 7 syringe-needleIndications times daily : Diabetes mellitus type Uncontrolled 2, insulin dependent diabetes mellitus (E11.65). Use a new syringe each time. Active bumetanide (BUMEX) 2 mg Take 1 tablet 180 tablet 1 tabletIndications: by mouth 2 7 Chronic diastolic heart times daily. failure Active pregabalin (LYRICA) 100 TAKE ONE 180 capsule mg capsuleIndications: CAPSULE BY 7 Chronic midline low back MOUTH TWICE pain without sciatica DAILY. Active traMADol (ULTRAM) 50 mg TAKE ONE 90 tablet 0 tabletIndications: TABLET BY 7 Chronic midline low back MOUTH EVERY 6 pain without sciatica HOURS NEEDED FOR PAIN. Active loratadine (CLARITIN) 10 Take 1 tablet 90 tablet 1 mg tabletIndications: by mouth 7 Allergic rhinitis, daily. unspecified chronicity, unspecified seasonality, unspecified trigger Active omeprazole (PRILOSEC) 20 TAKE ONE 30 capsule 2 1 mg delayed release CAPSULE BY 7 capsuleIndications: MOUTH ONCE Gastroesophageal reflux DAILY. disease without esophagitis Active metFORMIN (GLUCOPHAGE) Take 1 tablet 180 tablet 1 1 1,000 mg by mouth 2 7 tabletIndications: times daily Diabetes mellitus type 2, (with meals). insulin dependent Active simvastatin (ZOCOR) 20 mg Take 1 tablet 90 tablet 1 tabletIndications: Other by mouth at 7 hyperlipidemia bedtime nightly. Active Meloxicam 15 mg Take 1 tablet 90 tablet 1 05/02/20 1 tabletIndications: by mouth 7 Chronic midline low back daily. pain without sciatica Active buPROPion (WELLBUTRIN XL) Take 1 tablet 60 tablet 1 150 mg extended release once a day 7 tabletIndications: for 4 days Depression with anxiety then take 2 tablet once a day. Active levothyroxine (SYNTHROID) TAKE ONE 90 tablet 1 50 mcg tabletIndications: TABLET BY 8 Hypothyroidism, MOUTH ONCE unspecified type DAILY Active losartan (COZAAR) 25 mg TAKE ONE 90 tablet 1 tabletIndications: TABLET BY 8 Essential hypertension, MOUTH ONCE Chronic diastolic heart DAILY failure Active cyclobenzaprine TAKE ONE 90 tablet 1 (FLEXERIL) 10 mg TABLET BY 8 tabletIndications: MOUTH THREE Chronic midline low back TIMES DAILY pain without sciatica NEEDED FOR MUSCLE SPASM Active Problems Problem Noted Date Heart failure with preserved left ventricular functio n (HFpEF) 08/25/2014 Respiratory failure 06/04/2014 Respiratory failure with hypercapnia 06/04/2014 On home O2 01/01/2014 CHF exacerbation 12/30/2013 MDD (major depressive disorder) 12/09/2013 Pulmonary edema Diastolic heart failure Morbid obesity DM (diabetes mellitus) HTN (hypertension) Hypokalemia Anemia Obesity hypoventilation syndrome Depression Hypothyroid Immunizations Name Administration Dates Next Due Influenza Vaccine 04/08/2016, 05/13/2015, , 06/03/2013 Influenza Vaccine, 05/02/2017 Seasonal, Injectable PPV 23 Pneumococcal 06/03/2013 Polysaccaride Tdap Tetanus, diphtheria, 09/12/2016 acellular pertussis Vaccine Family History Medical History Relation Name Comments Arthritis Father Cataracts Father Diabetes Father Hypertension Father Arthritis Mother Diabetes Mother Hypertension Mother Hypothyroid Mother Cataracts Sister Hypertension Sister Diabetes Sister Relation Name Status Comments Brother Brother Alive Father Father Father Father Mother Mother Mother Mother Mother Alive Sister Sister Sister Alive Sister Alive Sister Alive Social History Date Tobacco Use Types Packs/Day Years Used Quit: 07/03/2003 Former Smoker Cigarettes Smokeless Tobacco: Never Used Tobacco Cessation: Counseling Given: Yes Drinks/Week oz/Week Comments Alcohol Use No Food Insecurity Answer Date Recorded Within the past 12 months, you worried that your Never mikel e 12/02/2016 food would run out before you got money to buy more. Within the past 12 months, the food you bought Never true 12/02/2016 just didn't last and you didn't have mo katia to get more. Sex Assigned at Date Recorded Not on file Industry Job Start Date Occupation Not on file Not on file Not on file Travel End Travel History Travel Start No recent travel history available. Last Filed Vital Signs Not on file Plan of Treatment Health Maintenance Due Date Last Done Comments Colorectal Cancer Scrn 09/13/2017 09/13/2016, 01/2015 Annual (FIT/FOBT) Age 50 to 75 DM Retinal Exam (Yearly) 09/21/2017 09/21/2016, 0 09/12/2015, 07/17/2014, Additional history exists Breast Cancer Scrn 01/04/2018 01/04/2017, 016, 10/16/2014, (Yearly) Additional history exists DM Foot Exam (Yearly) 02/17/2018 02/17/2017, 01/31, 11/23/2015, Additional history exists DM HGBA1C (Yearly) 05/02/2018 05/02/2017, 017, 02/11/2016, Additional history exists Cervical Cancer Scrn (3 03/23/2020 03/23/2017, Yrs) IMM Influenza Seasonal 04/02/2020 05/02/2017 Oct to August (>/= 19 yrs) Goals Goal Patient Associated Recent Progress Patient-Stat Aut hor Goal Type Problems ed? 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
--- OUTSIDE RECORDS SUMMARY | 2019-11-21 13:34 | XMS REPORT | Continuity of Care Document ---
Author Author [facility] Organization [facility] Address Unknown Phone Unavailable Care Team Providers Care Fire Lieutenant Name Role Phone [employer] Information [employer] Unavailable Un available Problems Problem Status Onset Date Classification Date Reported Comments Source Obesity hypoventilation syndrome Active Diagnosis 0 02/01/2018 Roger Duran Precordial pain Active Diagnosis 02/01/2018 Roger Duran Oxygen dependent Active Diagnosis 02/01/2018 Roger Duran Heart failure, unspecified Act edin Diagnosis 0 08/29/2017 Roger Duran Obstructive sleep apnea Active Diagnosis 02/01/2018 Roger Duran Abnormal electrocardiogram Act edin Diagnosis 0 02/01/2018 Roger Duran Hypertensive heart disease with heart failure Active Diagnosis 02/01/2018 Roger Duran Shortness of breath Active Diagnosis 05/12/2016 Roger Duran 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 Active Diag nosis 02/01/2018 Roger Duran Acute systolic (congestive) heart failure Active Diagnosis 02/01/2018 Roger Duran Other specified symptoms and signs invol ving the circulatory and respiratory systems Active Diagnosis 02/01/2018 Roger Duran Other symptoms involving cardiovascular system Active Diagnosis 05/12/2016 Roger Duran Pure hypercholesterolemia Acti ve Diagnosis 1 07/12/2015 Roger Duran Hypothyroidism Active Diagnosis 05/12/2016 Roger Duran DM w/o complication type II, uncontrolled Active Diagnosis 05/12/2016 Roger Duran GERD (gastroesophageal reflux disease) Active Diagnosis 05/12/2016 Roger Duran Obesity Active Diagnosis 05/12/2016 Roger Duran Medications Medication Details Route Status Patient Instructions Ordering Provider Order Date Source Pregabalin 1 capsule Orally Active 100 MG Orally Twice a d axel Duran CPAP 1 tab O ral Active Oral Roger Duran Tramadol HCl 1 tablet as needed Orally Active 50 MG Orally every 6 hrs Roger Duran Krill Oil not defined Orally Active Orally Roger Duran Cyclobenzaprine HCl 1 tablet Orally Active 10 MG Orally Three times a day Ahmed Ahmed Ahmed Simvastatin 1 tablet in the ev ening Orally Active 20 MG Orally Once a day Ahmed Ahmed Ahmed Loratadine 1 tablet Orally Active 10 MG Orally Once a day Ahmed Ahmed Ahmed Bumetanide 1 tablet Orally Active 1 MG Orally Once a day Ahmed Ahmed Ahmed Aspirin 1 tablet Orally Active 81 MG Orally Once a day Ahmed Ahmed Ahmed Carvedilol not defined Orally Active 25 MG Orally Twice a da y Ahmed Ahmed Ahmed Levothyroxine Sodium 1 tablet Orally Active 25 MCG Orally Once a day Ahmed Ahmed Ahmed Multivitamin as direct NA Active Ahme d Ahmed Ahmed Omeprazole 1 capsule Orally Active 20 MG Orally Once a day Ahmed Ahmed med Insulin 2 daily NA Active Ahmed med Ahmed Metformin HCl 1 tablet with me als Orally Active 500 MG Orally Twice a day Ahmed Ahmed med Vitamin B-Complex not defined Orally Active Orally Ahmed Ahmed Ahmed Losartan Potassium 1 tablet Orally Active 25 MG Orally Once a day Ahmed med med Metformin HCl 1 tablet with me als Orally Active 1000 MG Orally Twice a day Ahmed Ahmed Ahmed Meloxicam 1 tablet Orally Active 15 MG Orally Once a day Ahmed Ahmed Ahmed Krill Oil not defined Orally Active Orally Ahmed Ahmed Ahmed Cyclobenzaprine HCl 1 tablet Orally Active 10 MG Orally Three times a day Ahmed med med Bumetanide 1 tablet Orally Active 1 MG Orally Once a day Ahmed Ahmed Ahmed Multivitamin as direct NA Active Ahme d Ahmed Ahmed Levothyroxine Sodium 1 tablet Orally Active 25 MCG Orally Once a day Ahmed Ahmed Ahmed Krill Oil Unknown Orally Active Orally Ahmed Ahmed Ahmed Carvedilol Unknown Orally Active 25 MG Orally Twice a da y Ahmed Ahmed Ahmed Aspirin 1 tablet Orally Active 81 MG Orally Once a day Ahmed med Ahmed CPAP 1 tab O ral Active Oral Ahmed Ahmed Ahmed Metformin HCl 1 tablet with me als Orally Active 500 MG Orally Twice a day Ahmed med med Loratadine 1 tablet Orally Active 10 MG Orally Once a day Ahmed Ahmed Ahmed Vitamin B-Complex Unknown Orally Active Orally Ahmed Ahmed med Pregabalin 1 capsule Orally Active 100 MG Orally Twice a d ay Ahmed Ahmed Ahmed Insulin 2 daily NA Active Roger Duran Tramadol HCl 1 tablet as needed Orally Active 50 MG Orally every 6 hrs Roger Duran Omeprazole 1 capsule Orally Active 20 MG Orally Once a day Roger Duran Simvastatin 1 tablet in the ev ening Orally Active 20 MG Orally Once a day Roger Jamilmed Allergies, Adverse Reactions, Alerts Substance Category Reaction Severity Reaction type Status Date Reported Comments Source N.K.D.A. Adverse Reaction Info Not Available Adverse Reaction Active 11/07/2017 Roger Jamilmed Immunizations No Data Provided for This Section Results No Data Provided for This Section Pathology Reports No Data Provided for This Section Diagnostic Reports No Data Provided for This Section Consultation Notes No Data Provided for This Section Discharge Summaries No Data Provided for This Section History and Physicals No Data Provided for This Section Vital Signs Vital Sign Value Date Comments Source Weight 290 11/07/2017 Ahmed Ahmed Heart Rate 67 11/07/2017 Ahmed Ahmed Diastolic (mm Hg) 58 11/07/2017 Ahmed Ahmed Systolic (mm Hg) 136 11/07/2017 Omeromed Ahmed Weight 283 08/08/2017 Ahmed Ahmed Heart Rate 76 08/08/2017 Ahmed Ahmed Diastolic (mm Hg) 52 08/08/2017 Ahmed Ahmed Systolic (mm Hg) 140 08/08/2017 Ahmed Ahmed Weight 284 07/25/2017 Ahmed Ahmed Heart Rate 79 07/25/2017 Ahmed Ahmed Diastolic (mm Hg) 54 07/25/2017 Ahmed Ahmed Systolic (mm Hg) 130 07/25/2017 Ahmed Ahmed Weight 289 06/01/2017 Ahmed Ahmed Heart Rate 75 06/01/2017 Ahmed Ahmed Diastolic (mm Hg) 72 06/01/2017 Ahmed Ahmed Systolic (mm Hg) 120 06/01/2017 Ahmed Ahmed Weight 297 03/16/2017 Ahmed Ahmed Heart Rate 88 03/16/2017 Ahmed Ahmed Diastolic (mm Hg) 64 03/16/2017 Ahmed Ahmed Systolic (mm Hg) 134 03/16/2017 med Ahmed Weight 309 11/22/2016 Ahmed Ahmed Heart Rate 77 11/22/2016 Ahmed Ahmed Diastolic (mm Hg) 52 11/22/2016 Ahmed Ahmed Systolic (mm Hg) 128 11/22/2016 med Ahmed Weight 311 09/21/2016 Ahmed Ahmed Heart Rate 75 09/21/2016 Ahmed Ahmed Diastolic (mm Hg) 54 09/21/2016 Ahmed Ahmed Systolic (mm Hg) 126 09/21/2016 Ahmed Ahmed Weight 316 06/07/2016 Ahmed Ahmed Heart Rate 82 06/07/2016 Ahmed Ahmed Diastolic (mm Hg) 58 06/07/2016 Ahmed Ahmed Systolic (mm Hg) 138 06/07/2016 Ahmed Ahmed Weight 329 03/08/2016 Ahmed Ahmed Heart Rate 86 03/08/2016 Ahmed Ahmed Diastolic (mm Hg) 40 03/08/2016 Ahmed Ahmed Systolic (mm Hg) 146 03/08/2016 Ahmed Ahmed Weight 335 12/01/2015 Ahmed Ahmed Heart Rate 82 12/01/2015 Ahmed Ahmed Diastolic (mm Hg) 68 12/01/2015 Ahmed Ahmed Systolic (mm Hg) 132 12/01/2015 Ahmed Ahmed Weight 334 11/09/2015 Ahmed Ahmed Heart Rate 80 11/09/2015 Ahmed Ahmed Diastolic (mm Hg) 66 11/09/2015 Ahmed Ahmed Systolic (mm Hg) 140 11/09/2015 Ahmed Ahmed Encounters Location Location Details Encounter Type Encounter Number Reason For Visit Attending Provider ADM Date DC Date Status Source Roger Duran MD, PA BIOINFORMATICS 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-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 to be established w/railroad car checker-hx of Hyperlipidemia,High BP,CHF,CP [id number] 11/09/2015 11/09/2015 Roger Duran MD, PA BIOINFORMATICS DEVELOPER-Needs to be established w/railroad car checker-hx of Hyperlipidemia,High BP,CHF,CP [id number] 11/09/2015 11/09/2015 Roger Duran MD, PA BIOINFORMATICS DEVELOPER-Needs to be established w/railroad car checker-hx of Hyperlipidemia,High BP,CHF,CP [id number] 11/09/2015 11/09/2015 Roger Duran MD, PA BIOINFORMATICS DEVELOPER-Needs to be established w/railroad car checker-hx of Hyperlipidemia,High BP,CHF,CP [id number] 11/09/2015 11/09/2015 Roger Duran MD, LELIA Maria [id number] 12/01/2015 12/01/2015 Roger Duran MD, LELIA Maria [id number] 12/01/2015 12/01/2015 Roger Duran MD, LELIA Maria [id number] 12/01/2015 12/01/2015 Roger Duran MD, PA F/U TESTING [id number] 12/01/19 16 12/01/2015 Roger Duran MD, PA F/U TESTING [id number] 12/01/19 16 12/01/2015 Roger Duran MD, PA F/U TESTING [id number] 12/01/19 16 12/01/2015 Roger Duran MD, PA f/u 3 mon [id number] 03/08/20 16 03/08/2016 Roger Duran Procedures No Data Provided for This Section Assessment and Plan No Data Provided for This Section Plan of Care No Data Provided for This Section Social History Social History Date Source Social History ElementQualifiersDate Rep orted Smoking: . Are you a: Former smoker Quit in 2007Mar 08, 2016 Alcohol: . None Mar 08, 2016 03/08/2016 Roger Duran Family History No Data Provided for This Section Advance Directives No Data Provided for This Section Functional Status No Data Provided for This Section
--- OUTSIDE RECORDS SUMMARY | 2019-11-21 13:34 | XMS REPORT ---
Author Author [facility] t Organization [facility] Address [address] [facility] [address] [place] [address] Phone Unavailable Care Team Providers Care Proration Clerk Name Role Phone Susan NGUYEN MD PCP DESTINEY BARBOUR Attphys Unavailable SHAYAN STEIN Attphys Unavailable Pradeep BRUNO Attphys Unavailable Mary GUARDADO Attphys Unavailable Angus LAZARO Attphys Unavailable Pradeep BRUNO Admphys Unavailable Payers Payer Name Policy Type Policy Number Effective Date Expiration Date Pradeep ochoa [facility] [id number] 2018 00:00:00 [facility] [id number] 2018 [facility]00 [facility] [id number] 2018 00:00:00 [facility] Care Improvement Plus [id number] 2017 00:00:00 [facility] Problems Condition Name Condition Details Condition Category Status Onset Date Resolution Date Last Treatment Date Treating Clinician Comments Source Heart failure with preserved left ventricular function (HFpEF) Heart failure with preserved left ventricular function (HFpEF) Disease Active 2014-08-25 00:00:00 [facility] Respiratory failure Respiratory failure Disease Active 2014-06-04 00:00 :00 [facility] Respiratory failure with hypercapnia Respiratory failure wit h hypercapnia Disease Active 2014-06-04 00:00:00 [facility] Congestive heart failure Congestive heart failure (CHF) Problem Active 2014-04-13 00:00:00 [facility] On home O2 On home O2 Disease Active 2014-01-01 00:00:00 [facility] CHF exacerbation CHF exacerbation Disease Active 2013-12-30 00:00:00 [facility] MDD (major depressive disorder) MDD (major depressive disorder) Dis ease Active 2013-12-09 00:00:00 [facility]alt Obesity hypoventilation syndrome Obesity hypoventilation syndrome Active Diagnosis 02/01/2018 Ahmed mOeromed Diagnosis Active 2018-02-01 02:48:35 Ahmed Omeromed Precordial pain Prec ordial pain Active Diagnosis 02/01/2018 Ahmed Ahmed Diagnosis Active 2018-02-01 02:48:35 Omeromed Omeromed Oxygen dependent Oxyg en dependent Active Diagnosis 02/01/2018 Ahmed Ahmed Diagnosis Active 2018-02-01 02:48:35 Ahmed Omeromed Heart failure, unspecified Hea rt failure, unspecified Active Diagnosis 08/29/2017 med Ahmed Diagnosis Active 2017-08-29 04:03:51 Ahmed med Obstructive sleep apnea Obst ructive sleep apnea Active Diagnosis 02/01/2018 Ahmed Ahmed Diagnosis Active 2018-02-01 02: 48:35 Ahkatelyn Jamilmed Abnormal electrocardiogram Abn ormal electrocardiogram Active Diagnosis 02/01/2018 Ahmed Ahmed Diagnosis Active 2018-02-01 02:48:35 Ahmed Ahmed Hypertensive heart disease with heart failure Hypertensive heart disease with heart failure Active Diagnosis 02/01/2018 Ahmed Ahmed Diagnosis Active 2018-02-01 02:48:35 A ed Ahmed Shortness of breath Shor tness of breath Active Diagnosis 05/12/2016 med med Diagnosis Active 2016-05-12 05:03:43 Ahmed Omeromed 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 Atheroscler of [place] artery of both legs with intermit claudication Active Diagnosis 02/01/2018 med med Diagnosis Active 2018-02-01 02:48:35 Omeromed med Acute systolic (congestive) heart failure Acute systolic (congestive) heart failure Active Diagnosis 02/01/2018 med Ahmed Diagnosis Active 2018-02-01 02:48:35 Ahmed med Other specified symptoms and signs invol ving the circulatory and respiratory systems Other specified symptoms and signs involving the circulatory and respiratory systems Active Diagnosis 02/01/2018 Ahmed med Diagnosis Active 2018-02-01 02:48:35 Ahmed Omeromed Other symptoms involving cardiovascular system Other symptoms involving cardiovascular system Active Diagnosis 05/12/2016 Ahmed Ahmed Diagnosis Active 2016-05-12 04:54:17 Ahmed Ahmed Pure hypercholesterolemia Pure hypercholesterolemia Active Diagnosis 05/12/2016 Ahmed Ahmed Diagnosis Active 2016-05-12 04:54:17 Ahmed med Hypothyroidism Hypo thyroidism Active Diagnosis 05/12/2016 Ahmed Ahmed Diagnosis Active 2016-05-12 04:54:17 Omeromed Omeromed DM w/o complication type II, uncontrolled DM w/o complication type II, uncontrolled Active Diagnosis 05/12/2016 Ahmed Ahmed Diagnosis Active 2016-05-12 04:54:17 Ahmed Omeromed GERD (gastroesophageal reflux disease) GERD (gastroesophageal reflux disease) Active Diagnosis 05/12/2016 Ahmed Ahmed Diagnosis Active 2016-05-12 04:54:17 Roger Duran Obesity Obes ity Active Diagnosis 05/12/2016 Roger Duran Diagnosis Active 2016-05-12 04:54:17 Roger Duran Pulmonary edema Pulmonary edema Disease Active [facility] Diastolic heart failure Diastolic heart failure Disease Active [facility] Morbid obesity Morbid obesity Disease Active [facility] DM (diabetes mellitus) DM (diabetes mellitus) Disease Active [facility] HTN (hypertension) HTN (hypertension) Disease Active [facility] Hypokalemia Hypokalemia Disease Active [facility] Anemia Anemia Disease Active [facility] Obesity hypoventilation syndrome Obesity hypoventilation syndrom e Disease Active [facility] Depression Depression Disease Active [facility] Hypothyroid Hypothyroid Disease Active [facility] Allergies, Adverse Reactions, Alerts Allergy Name Allergy Type Status Severity Reaction(s) Onset Date Inacti ve Date Treating Clinician Comments Source Latex Allergy to Substance Active Unknown 2018-12-26 00:00:00 [facility] N.K.OkA. N.K.Bhaskar.A. Active Info Not Available 2017-11-07 00:00:00 [facility] Latex, Natural Rubber Propensity to adverse reactions to drug Active 2017-01-30 00:00:00 ALLERGIC LATEX GLOVES [facility] Promethazine Propensity to adverse reactions to drug Active Itching, Swelling 2013-07-09 00:00:00 [facility] [facility] promethazine HCl Allergy to Substance Active Moderate HALLUCINA TIONS 2011-02-13 00:00:00 [facility] Family History Family Member Diagnosis Comments Start Date Stop Date Source Natural father Arthritis [facility] Natural father Cataracts [facility] Natural father Diabetes [facility] Natural father Hypertension [facility] Natural mother Arthritis [facility] Natural mother Diabetes [facility] Natural mother Hypertension [facility] Natural mother Hypothyroid [facility] Natural sister Cataracts [facility] Natural sister Hypertension [facility] Natural sister Diabetes [facility] Social History Social Habit Start Date Stop Date Quantity Comments Source Sex Assigned At [facility] Alcohol intake 2018-12-05 00:00:00 2018-12-05 00:00:00 [facility] History SDOH Food Worry 2016-12-02 00:00:00 2016-12-02 00:00:00 1 [facility] SDOH Food Scarcity 2016-12-02 00:00:00 2016-12-02 00:00:00 1 [facility] Smokin2016-03-08 00:00:00 2016-03-08 00:00:00 [facility] History of tobacco use 2003-07-03 00:00:00 Current smoker [facility] Smoking Status Start Date Stop Date Source Former smoker 2018-12-05 00:00:00 2018-12-05 00:00:00 [facility] Medications Ordered Medication Name Filled Medication Name Start Date Stop Da te Current Medication? Ordering Clinician Indication Dosage Frequency Signature (SIG) Comments Components Source cyclobenzaprine (FLEXERIL) 10 mg tablet 2018-06-20 00:00:00 Yes Chronic midline low back pain without sciatica T SANJEEV ONE TABLET BY MOUTH THREE TIMES DAILY NEEDED FOR MUSCLE SPASM [facility] Pregabalin 2018-02-01 02:48:35 Yes Ahmed Ahmed 1 capsule Ahmed Ahmed CPAP 2018-02-01 02:48:35 Yes Ahmed Ahmed 1 tab Ahmed Ahmed Tramadol HCl 2018-02-01 02:48:35 Yes Ahmed Ahmed 1 tablet as needed Ahmed Ahmed Cyclobenzaprine HCl 2018-02-01 02:48:35 Yes Ahmed Ahmed 1 tablet Ahmed Ahmed Simvastatin 2018-02-01 02:48:35 Yes Ahmed Ahmed 1 tablet in the evening Ahmed Ahmed Loratadine 2018-02-01 02:48:35 Yes Ahmed Ahmed 1 tablet Ahmed Ahmed Bumetanide 2018-02-01 02:48:35 Yes Ahmed Ahmed 1 tablet Ahmed Ahmed Aspirin 2018-02-01 02:48:35 Yes Ahmed Ahmed 1 tab let Ahmed Ahmed Carvedilol 2018-02-01 02:48:35 Yes Ahmed Ahmed no t defined Ahmed Ahmed Levothyroxine Sodium 2018-02-01 02:48:35 Yes Ahmed Ahmed 1 tablet Ahmed Ahmed Multivitamin 2018-02-01 02:48:35 Yes Ahmed Ahmed as direct Ahmed Ahmed Omeprazole 2018-02-01 02:48:35 Yes Ahmed Ahmed 1 capsule Ahmed Ahmed Insulin 2018-02-01 02:48:35 Yes Ahmed Omeromed 2 jackelyn ly Ahmed Ahmed Vitamin B-Complex 2018-02-01 02:48:35 Yes Ahmed Ahmed not defined Ahmed Ahmed Losartan Potassium 2018-02-01 02:48:35 Yes Ahmed Ahmed 1 tablet Ahmed Ahmed Metformin HCl 2018-02-01 02:48:35 Yes Ahmed Ahmed 1 tablet with meals Ahmed Ahmed Meloxicam 2018-02-01 02:48:35 Yes Ahmed Ahmed 1 t ablet Ahmed Ahmed Krill Oil 2018-02-01 02:48:35 Yes Ahmed Ahmed not defined Ahmed Ahmed losartan (COZAAR) 25 mg tablet 2018-01-19 00:00:00 Yes Chronic diastolic heart failure TAKE ONE TABLET BY MOUTH ONCE DAILY [facility] levothyroxine (SYNTHROID) 50 mcg tablet 2017-12-14 00:00:00 Yes Hypothyroidism, unspecified type TAKE ONE TABLET BY MOUTH ONCE DAILY [facility] Krill Oil 2017-08-29 04:03:51 Yes Ahmed Ahmed not defined Ahmed Ahmed insulin 70/30 NPH - REGULAR (NOVOLIN 70/30) 100 unit/mL inje ction 2017-06-02 15:01:22 Yes Diabetes mellitus type 2, insulin depend ent 100U Q.5D Inject 100 Units under the skin 2 times daily (before meals). [facility] Metformin HCl 2017-05-16 03:53:29 Yes Ahmed Ahmed 1 tablet with meals Ahmed Ahmed traMADol (ULTRAM) 50 mg tablet 2017-05-02 00:00:00 Yes Chronic midline low back pain without sciatica TAKE ONE TABL ET BY MOUTH EVERY 6 HOURS NEEDED FOR PAIN. [facility] loratadine (CLARITIN) 10 mg tablet 2017-05-02 00:00:00 Yes Allergic rhinitis, unspecified chronicity, unspecified seasonality, unspecified trigger 10mg QD Take 1 tablet by mouth daily. [facility] omeprazole (PRILOSEC) 20 mg delayed release capsule 2016-07 00:00:00 Yes Gastroesophageal reflux disease without esophagitis TAKE ONE CAPSULE BY MOUTH ONCE DAILY. [facility] metFORMIN (GLUCOPHAGE) 1,000 mg tablet 2017-05-02 00:00:00 Yes Diabetes mellitus type 2, insulin dependent 1000mg Take 1 tablet by mouth 2 times daily (with meals). [facility] simvastatin (ZOCOR) 20 mg tablet 2017-05-02 00:00:00 Yes Other hyperlipidemia 20mg Take 1 tablet by mouth at bedtime nightly. [facility] Meloxicam 15 mg tablet 2017-05-02 00:00:00 Yes Chronic midline low back pain without sciatica 15mg QD Take 1 tablet by mouth daily. [facility] buPROPion (WELLBUTRIN XL) 150 mg extended release tablet 2017-05-02 00:00:00 Yes Depression with anxiety T sanjeev 1 tablet once a day for 4 days then take 2 tablet once a day. [facility] bumetanide (BUMEX) 2 mg tablet 2017-02-17 00:00:00 Yes Chronic diastolic heart failure 2mg Q.5D Take 1 tablet by mouth 2 times daily. [facility] pregabalin (LYRICA) 100 mg capsule 2017-02-17 00:00:00 Yes Chronic midline low back pain without sciatica TAKE ONE CAPSULE BY MOUTH T WICE DAILY. [facility] mupirocin (BACTROBAN) 2 % ointment 2017-01-30 11:44:38 Yes Q.5D Apply to affected area 2 times daily. [facility] eaadonay KRILL OIL OR 2017-01-30 11:44:38 Yes QD Take b y mouth daily. [facility] Vitamin B Comp & C No.4 (SUPER B COMPLEX + C) 150 mg Tab 2017-01-30 11:44:38 Yes QD Take by mouth daily. [facility] Cholecalciferol, Vitamin D3, 5,000 unit Tab 2017-01-30 11:44:38 Yes 1{tbl} QD Take 1 tablet by mouth daily. [facility] MULTIVIT &MINERALS/FERROUS FUM (MULTI VITAMIN OR) 2016-12-02 11:10:05 Yes Take by mouth. [place] [facility]era carvedilol (COREG) 12.5 mg tablet 2016-12-02 00:00:00 Yes Chronic diastolic heart failure 12.5mg Take 1 tablet by mouth 2 times daily (with meals). [facility] INSULIN SYRINGE 0.5mL 30GX5/16" (ULTRA COMFORT) syringe-need le 2016-12-02 00:00:00 Yes Diabetes mellitus type 2, insulin depend ent Use to inject medication 3 times daily Uncontrolled diabetes mellitus (E11.65). Use a new syringe each time. [facility] blood glucose meter 2016-09-12 00:00:00 Yes Diabetes mellitus type 2, insulin dependent Use as directed.. [facility] blood glucose test strips 2016-09-12 00:00:00 Yes Diabetes mellitus type 2, insulin dependent Q.5D 2 times daily to test blood sugar. [facility] lancets 2016-09-12 00:00:00 Yes Diabetes mellitus type 2, insulin dependent Q.5D by MISCELLANEOUS route 2 times daily. [facility] Cyclobenzaprine HCl 2016-05-15 04:20:37 Yes Ahmed Ahmed 1 tablet Ahmed Ahmed Bumetanide 2016-05-15 04:20:37 Yes Ahmed Ahmed 1 tablet Ahmed Ahmed Multivitamin 2016-05-15 04:20:37 Yes Ahmed Ahmed as direct Ahmed Ahmed Levothyroxine Sodium 2016-05-15 04:20:37 Yes Ahmed Ahmed 1 tablet Ahmed Ahmed Krill Oil 2016-05-15 04:20:37 Yes Ahmed Omeromed Unk nown Ahmed Ahmed Carvedilol 2016-05-15 04:20:37 Yes Ahmed Omeromed Un known Ahmed Ahmed Aspirin 2016-05-15 04:20:37 Yes Ahmed Ahmed 1 tab let Ahmed Ahmed CPAP 2016-05-15 04:20:37 Yes Ahmed Ahmed 1 tab Ahmed Ahmed Metformin HCl 2016-05-15 04:20:37 Yes Ahmed Ahmed 1 tablet with meals Ahmed Omeromed Loratadine 2016-05-15 04:20:37 Yes Ahmed Ahmed 1 tablet Ahmed Ahmed Vitamin B-Complex 2016-05-15 04:20:37 Yes Ahmed Omeromed Unknown Ahmed Ahmed Pregabalin 2016-05-15 04:20:37 Yes Ahmed Ahmed 1 capsule Ahmed Ahmed Insulin 2016-05-15 04:20:37 Yes Ahmed Omeromed 2 jackelyn ly Ahmed Ahmed Tramadol HCl 2016-05-15 04:20:37 Yes Ahmed Ahmed 1 tablet as needed Ahmed Ahmed Omeprazole 2016-05-15 04:20:37 Yes Ahmed Ahmed 1 capsule med Ahmed Simvastatin 2016-05-15 04:20:37 Yes Ahmed Ahmed 1 tablet in the evening Ahmed Ahmed insulin REGULAR (NOVOLIN R, HUMULIN R) 100 unit/mL injection 2016-02-11 00:00:00 Yes Uncontrolled typ e 2 diabetes mellitus without complication, with long-term current use of insulin In ject under the skin as directed per sliding scale: (BS 200 - 300 : 10 units, BS 301 - 400: 15 units, BS > 401: 20 units). [facility] blood glucose test strips 2016-02-11 00:00:00 Yes Uncontrolled type 2 diabetes mellitus without complication, with long-term current use of insulin Q.5D 2 times daily to test blood sugar. [facility] blood glucose test strips 2015-10-15 00:00:00 Yes Uncontrolled diabetes mellitus Q.5D 2 times daily to test blood sugar. [facility] blood glucose test strips 2015-09-11 00:00:00 Yes Uncontrolled diabetes mellitus Q.5D 2 times daily to test blood sugar. [facility] INSULIN SYRINGE 1mL 30GX5/16" syringe-needle 2015-08-18 00:0 0:00 Yes Uncontrolled diabetes mellitus Use 5 times daily. [facility] Insulin REGULAR CONCENTRATED (HUMULIN R CONCENTRATED) 500 un it/mL injection 2015-06-10 00:00:00 Yes Type 2 diabetes mellitus wi th diabetic neuropathy Inject 15 units under the dkin at breakfast and dinner [facility] Syringe, Disposable, (GLASPAK TB SYRINGE 1CC) 1 mL Syrg 2015-06-10 00:00:00 Yes Type 2 diabetes mellitus [facility]; Combo Route) route To inject 0.15 cc sub Q U500 insulin breakfast and dinner. [facility] mometasone (NASONEX) 50 mcg/actuation nasal spray 2015-03-18 00:00:00 Yes Allergic rhinitis, cause unspecified 2{spray} QD 2 S prays by each nostril route daily. [facility] CPAP Supply 2014-11-19 00:00:00 Yes CPAP (continuous positive airway pressure) dependence Mask (fit to patien t), tubing & other supplies as needed to treat MICHEAL.. [facility] amoxicillin (AMOXIL) 500 mg capsule 2014-10-22 00:00:00 Yes Prophylactic antibiotic Take four capsules b y mouth one hour prior to dental appointment.. [facility] INSULIN SYRINGE 1mL 30GX5/16" syringe-needle 2014-10-16 00:0 0:00 Yes Uncontrolled diabetes mellitus Use to in ject insulin Use to inject insulin (5 injections/day). Use a new syringe each time. [facility] blood glucose test strips 2014-10-16 00:00:00 Yes Uncontrolled diabetes mellitus Use to check blood glucose 3 times a day. [facility] fluticasone (FLONASE) 50 mcg/actuation nasal spray 2014-10 00:00:00 Yes Allergic rhinitis 2{spray} QD Use 2 Sprays in each nostril jackelyn carey [facility] CPAP Supply 2014-10-15 00:00:00 Yes MICHEAL on CPAP Mask (fit to patient), tubing & other supplies as needed to treat MICHEAL.. [facility] aspirin (ASPIRIN) 81 mg chewable tablet 2014-08-26 00:00:00 Yes Hypothyroid 81mg QD Chew and swallow 1 tablet by mouth daily. [facility] lancets 28 gauge 2014-04-29 00:00:00 Yes Unc ontrolled diabetes mellitus Use as directed 3 times a day. [facility] blood glucose meter 2014-04-02 00:00:00 Yes DM (d iabetes mellitus) Use as directed.. [facility] ketoconazole (NIZORAL) 2 % topical cream 2013-12-27 00:00:00 Yes Tinea pedis QD Apply to affected area daily. [facility] blood glucose meter 2013-07-12 00:00:00 Yes Diabetes mellitus, type II Use as directed. [facility] Aspirin 81 Mg Tab.chew Aspirin 81 Mg Tab.chew Yes 81 Daily [facility] Bumetanide 1 Mg Tablet Bumetanide 1 Mg Tablet Yes 2 Twice A Day [facility] Bupropion Hcl (Bupropion Xl) 150 Mg Tab.er.24h Bupropi on Hcl (Bupropion Xl) 150 Mg Tab.er.24h Yes 150 Daily [facility] Carvedilol 12.5 Mg Tablet Carvedilol 12.5 Mg Tablet Yes 25 Twice A Day [facility] Clindamycin Hcl 150 Mg Capsule Clindamycin Hcl 150 Mg Capsule Yes 300 Every 8 Hours [facility] Cyanocobalamin (Vitamin B-12) 1,000 Mcg Tab Cyanocobal ford (Vitamin B-12) 1,000 Mcg Tab Yes 5000 Daily [facility] Cyclobenzaprine Hcl (Flexeril) 10 Mg Tablet Cyclobenza jonathan Hcl (Flexeril) 10 Mg Tablet Yes 10 Three Times A Day C [facility] Ferrous Sulfate 325 Mg Tablet Ferrous Sulfate 325 Mg Tablet Yes 325 Daily [facility] Fluoxetine Hcl 20 Mg Capsule Fluoxetine Hcl 20 Mg Capsule Y es 20 Daily [facility] Insulin Regular, Human (Novolin R) 100 Unit/1 Ml Vial Insulin Regular, Human (Novolin R) 100 Unit/1 Ml Vial Yes Three T imes A Day [facility] Krill Oil/Ackerly-3/Dha/Epa ([facility] Ackerly-3 Krill Oil 300 S fgl) 1 Each Capsule Krill Oil/Ackerly-3/Dha/Epa ([facility] Ackerly-3 Krill Oil 300 Sfgl) 1 Each Capsule Yes 300 Rt Daily [facility] Levothyroxine Sodium 50 Mcg Tablet Levothyroxine Sodium 50 Mcg Tablet Yes 25 Daily [facility] Loratadine 10 Mg Tablet Loratadine 10 Mg Tablet Yes 10 Daily [facility] Losartan Potassium 25 Mg Tablet Losartan Potassium 25 Mg Tablet Yes 25 Daily [facility] Meloxicam 15 Mg Tablet Meloxicam 15 Mg Tablet Yes 15 Rt Daily [facility] Metformin Hcl (Glucophage Xr) 500 Mg Tab.er.24h Metfor min Hcl (Glucophage Xr) 500 Mg Tab.er.24h Yes 500 Twice A Day [facility] Multivitamin (Multivitamins) 1 Each Capsule Multivitam in (Multivitamins) 1 Each Capsule Yes 1 Rt Daily [facility] Novolin 70/30 Novolin 70/30 Yes 100 Twice A Day [facility] Omeprazole 40 Mg Capsule. Omeprazole 40 Mg Capsule. Yes 20 Daily [facility] Pregabalin (Lyrica) 50 Mg Cap Pregabalin (Lyrica) 50 Mg Cap Yes 100 Twice A Day [facility] Simvastatin 20 Mg Tablet Simvastatin 20 Mg Tablet Yes 20 Today At 9:00PM [facility] Tramadol Hcl (Ultram) 50 Mg Tablet Tramadol Hcl (Ultram) 50 Mg Tablet Yes 50 Rt Q6h [facility] Losartan/Hydrochlorothiazide (Hyzaar 100-25 Tablet) 1 Each Tablet, 100 Mg Oral Losartan/Hydrochlorothiazide (Hyzaar 100-25 Tablet) 1 Each Tablet, 100 Mg Oral 2017-07-27 00:00:00 No 100 Rt Daily [facility] Omeprazole (Prilosec) 20 Mg Capsule., 20 Mg Oral Ome prazole (Prilosec) 20 Mg Capsule., 20 Mg Oral 2017-07-27 00:00:00 No 20 D aily [facility] Pregabalin (Lyrica) 50 Mg Cap, 100 Mg Oral Pregabalin (Lyrica) 50 Mg Cap, 100 Mg Oral 2017-07-27 00:00:00 No 100 Twice A Day [facility] Simvastatin 40 Mg Tablet, 20 Mg Oral Simvastatin 40 Mg Tablet, 2 0 Mg Oral 2017-07-27 00:00:00 No 20 Bedtime [facility] Cholecalciferol (Vitamin D3) (Vitamin D) 5,000 Unit Ta blet, 5000 Unit Oral Cholecalciferol (Vitamin D3) (Vitamin D) 5,000 Unit Tablet, 5000 Unit Oral 2017-04-20 00:00:00 No 5000 Rt Daily [facility] Furosemide (Lasix) 40 Mg Tablet, 40 Mg Oral Furosemide (Lasix) 40 Mg Tablet, 40 Mg Oral 2017-04-20 00:00:00 No 40 Twice A Day [facility] Gabapentin (Neurontin) 600 Mg Tablet, 600 Mg Oral Amrit pentin (Neurontin) 600 Mg Tablet, 600 Mg Oral 2017-04-20 00:00:00 No 600 Thre e Times A Day [facility] Insulin Detemir (Levemir) 100 Unit/1 Ml Vial, 70 Units Sub-Q Insulin Detemir (Levemir) 100 Unit/1 Ml Vial, 70 Units Sub-Q 2017-04-20 00:00:00 No 70 Twice A Day [facility] Insulin Npl/Insulin Lispro (Humalog Mix 50-50 Kwikpen) 100 Unit/1 Ml Insuln.pen, 60 Units Sub-Q Insulin Npl/Insulin Lispro (Humalog Mix 50-50 Kwikpen) 100 Unit/1 Ml Insuln.pen, 60 Units Sub-Q 2017-04-20 00:00:00 No 60 Three Times A Day [facility] Metoprolol Succinate 50 Mg Tab.er.24h, 50 Mg Oral Meto prolol Succinate 50 Mg Tab.er.24h, 50 Mg Oral 2017-04-20 00:00:00 No 50 T wice A Day [facility] Hydrocodone Bit/Acetaminophen (Hydrocodo n-Acetaminoph 7.5-750) 1 Each Tablet, 7.5 Mg Oral Hydrocodone Bit/Acetaminophen (Hydrocodo n-Acetaminoph 7.5-750) 1 Each Tablet, 7.5 Mg Oral 2014-04-14 00:00:00 No 7.5 Rt Q6h [facility] Liraglutide (Victoza 2-Reddy) 0.6 Mg/0.1 Ml Pen.injctr, 1.2 Mg Sub-Q Liraglutide (Victoza 2-Reddy) 0.6 Mg/0.1 Ml Pen.injctr, 1.2 Mg Sub-Q 2014-04-02 3 00:00:00 No 1.2 Rt Daily [facility] Zedgrid 40 Mg Tab, 40 Mg Oral Zedgrid 40 Mg Tab, 40 Mg Oral 2014-04-14 00:00:00 No 40 Rt Daily [facility] Immunizations Ordered Immunization Name Filled Immunization Name Date Status Comments Source Influenza Vaccine, Seasonal, Injectable 2017-05-02 00:00:0 0 Completed [facility] Tdap Tetanus, diphtheria, acellular pertussis Vaccine 2016-09-12 00:00:00 Completed [facility] Influenza Vaccine 2016-04-08 00:00:00 Completed [facility] Influenza Vaccine 2015-05-13 00:00:00 Completed [facility] Influenza Vaccine 2014-04-01 00:00:00 Completed [facility] Influenza Vaccine 2013-06-03 00:00:00 Completed [facility] PPV 23 Pneumococcal Polysaccaride 2013-06-03 00:00:00 Comp leted [facility] Vital Signs Vital Name Observation Time Observation Value Comments Source Weight 2017-11-07 16:30:00 [facility] med Heart Rate 2017-11-07 16:30:00 [facility] med Diastolic (mm Hg) 2017-11-07 16:30:00 Ahm ed Ahmed Systolic (mm Hg) 2017-11-07 16:30:00 Ahme d Ahmed Weight 2017-08-08 16:15:00 Ahmed Ah med Heart Rate 2017-08-08 16:15:00 Ahmed Ah med Diastolic (mm Hg) 2017-08-08 16:15:00 Ahm ed Ahmed Systolic (mm Hg) 2017-08-08 16:15:00 Ahme d Ahmed Weight 2017-07-25 17:00:00 Ahmed Ah med Heart Rate 2017-07-25 17:00:00 Ahmed Ah med Diastolic (mm Hg) 2017-07-25 17:00:00 Ahm ed Ahmed Systolic (mm Hg) 2017-07-25 17:00:00 Ahme d Ahmed Weight 2017-06-01 17:00:00 Ahmed Ah med Heart Rate 2017-06-01 17:00:00 Ahmed Ah med Diastolic (mm Hg) 2017-06-01 17:00:00 Ahm ed Ahmed Systolic (mm Hg) 2017-06-01 17:00:00 Ahme d Ahmed Weight 2017-03-16 16:45:00 Ahmed Ah med Heart Rate 2017-03-16 16:45:00 Ahmed Ah med Diastolic (mm Hg) 2017-03-16 16:45:00 Ahm ed Ahmed Systolic (mm Hg) 2017-03-16 16:45:00 Ahme d Ahmed Weight 2016-11-22 16:30:00 Ahmed Ah med Heart Rate 2016-11-22 16:30:00 Ahmed Ah med Diastolic (mm Hg) 2016-11-22 16:30:00 Ahm ed Ahmed Systolic (mm Hg) 2016-11-22 16:30:00 Ahme d Ahmed Weight 2016-09-21 15:45:00 Ahmed Ah med Heart Rate 2016-09-21 15:45:00 Ahmed Ah med Diastolic (mm Hg) 2016-09-21 15:45:00 Ahm ed Ahmed Systolic (mm Hg) 2016-09-21 15:45:00 Ahme d Ahmed Weight 2016-06-07 20:15:00 Ahmed Ah med Heart Rate 2016-06-07 20:15:00 Ahmed Ah med Diastolic (mm Hg) 2016-06-07 20:15:00 Ahm ed Ahmed Systolic (mm Hg) 2016-06-07 20:15:00 Ahme d Ahmed Weight 2016-03-08 20:00:00 Ahmed Ah med Heart Rate 2016-03-08 20:00:00 Ahmed Ah med Diastolic (mm Hg) 2016-03-08 20:00:00 Ahm ed Ahmed Systolic (mm Hg) 2016-03-08 20:00:00 Ahme d Ahmed Weight 2015-12-01 20:15:00 Ahmed Ah med Heart Rate 2015-12-01 20:15:00 Ahmed Ah med Diastolic (mm Hg) 2015-12-01 20:15:00 Ahm ed Ahmed Systolic (mm Hg) 2015-12-01 20:15:00 Ahme d Ahmed Weight 2015-11-09 17:30:00 Ahmed Ah med Heart Rate 2015-11-09 17:30:00 Ahmed Ah med Diastolic (mm Hg) 2015-11-09 17:30:00 Ahm ed Ahmed Systolic (mm Hg) 2015-11-09 17:30:00 Ahme d Ahmed Procedures Procedure Date / Time Performed Performing Clinician [facility] e X-ray of chest, two views 2019-07-29 00:00:00 SHAYAN STEIN CH, I [facility] Ultrasound guidance for vascular access 2019-06-28 00:00:00 MYRIAM KIRBY [facility] INSERT OF TUNNEL VAD INTO CHEST SUBCU/FASCIA, PERC APPROACH 2019-06-28 00:00:00 HARVEY [facility] INSERTION OF INFUSION DEV INTO SUP VENA CAVA, PERC APPROACH 2019-06-28 00:00:00 HEATH ANDREA [facility] Ultrasound, renal 2019-06-17 00:00:00 FELICIA RGAY [facility] PERFORMANCE OF URINARY FILTRATION, <6 HRS/DAY 2019-06-16 00:00:0 0 MYRIAM KIRBY [facility] Ultrasound guidance for vascular access 2019-06-15 00:00:00 MARTY CHANEY [facility] RESPIRATORY VENTILATION, 24-96 CONSECUTIVE HOURS 2019-06-15 00:00:00 MARTY GREENWOOD [facility] INSERTION OF INFUSION DEV INTO SUP VENA CAVA, PERC APPROACH 2019-06-15 00:00:00 MARTY MEJIA [facility] INSERTION OF ENDOTRACHEAL AIRWAY INTO TRACHEA, VIA OPENING 2 00:00:00 MARTY GREENWOOD [facility] X-ray of chest, two views 2018-12-26 00:00:00 RAHUL GUARDADO [facility] Plan of Care Planned Activity Planned Date Details Comments Source [facility] Scheduled Test 2020-04-02 00:00:00 IMM Influenza Seas onal Apr to August (>/= 19 yrs) [code = IMM Influenza Seasonal Apr to August (>/= 19 yrs)] [facility] Scheduled Test 2020-03-23 00:00:00 Cervical Cancer Sc rn (3 Yrs) [code = Cervical Cancer Scrn (3 Yrs)] [facility] Scheduled Test 2018-05-02 00:00:00 DM HGBA1C (Yearly) [code = DM HGBA1C (Yearly)] [facility] Scheduled Test 2018-02-17 00:00:00 DM Foot Exam (Year ly) [code = DM Foot Exam (Yearly)] [facility] Scheduled Test 2018-01-04 00:00:00 Breast Cancer Scrn (Yearly) [code = Breast Cancer Scrn (Yearly)] [facility] Scheduled Test 2017-09-21 00:00:00 DM Retinal Exam (Y early) [code = DM Retinal Exam (Yearly)] [facility] Scheduled Test 2017-09-13 00:00:00 Colorectal Cancer Scrn Annual (FIT/FOBT) Age 50 to 75 [code = Colorectal Cancer Scrn Annual (FIT/FOBT) Age 50 to 75] [facility] Encounters Start Date/Time End Date/Time Encounter Type Admission Type Attendi [facility] Facility Care Department Encounter ID Source 2019-09-23 22:45:00 2019-09-24 01:50:00 Departed Emergency Room 1 DESTINEY BARBOUR [facility] [id number] [facility] 2019-07-29 12:17:00 2019-07-29 12:17:00 Registered Clinic 3 SHAYAN PRIDE [facility] [id number] [facility] 2019-06-15 16:48:00 2019-07-02 16:08:00 Discharged Inpatient 1 BONY BRUNO [facility] [id number] [facility] 2018-12-26 22:25:00 2018-12-27 00:42:00 Departed Emergency Room 1 GRADY GUARDADO [facility] [id number] [facility] 2017-11-07 11:30:00 2017-11-07 11:30:00 [facility]patient [facility] [id number] [employer] 2017-08-08 11:15:00 2017-08-08 11:15:00 Outpatient [facility] [id number] [employer] 2017-07-27 16:06:00 2017-08-01 13:12:00 Discharged Inpatient ER VALENTINA LAZARO [facility] [id number] [facility] 2017-07-25 11:00:00 2017-07-25 11:00:00 Outpatient [facility] [place] [id number] [employer] 2017-07-20 00:00:00 2017-07-20 00:00:00 Outpatient [facility] [id number] [facility] 2017-06-06 00:00:00 2017-06-06 00:00:00 Outpatient [facility] [id number] [facility] 2017-06-02 14:42:59 2017-06-02 14:42:59 Outpatient [facility] [id number] [facility] 2017-06-01 11:00:00 2017-06-01 11:00:00 Outpatient [facility] Lelia [facility] Lelia [id number] [employer] 2017-05-10 00:00:00 2017-05-10 00:00:00 Outpatient [facility] [id number] [facility] 2017-05-02 13:49:43 2017-05-02 13:49:43 Outpatient [facility] [id number] [facility] 2017-05-02 12:51:25 2017-05-02 12:51:25 Outpatient [facility] [id number] [facility] 2017-04-22 07:51:00 2017-04-22 07:51:00 Registered Surgical Day Care [facility] [id number] [facility] 2017-04-13 08:48:34 2017-04-13 08:48:34 Outpatient [facility] [id number] [facility] 2017-03-30 00:00:00 2017-03-30 00:00:00 Outpatient [facility] [id number] [facility] 2017-03-23 10:00:11 2017-03-23 10:00:11 Outpatient [facility] [id number] [facility] 2017-03-20 00:00:00 2017-03-20 00:00:00 Outpatient [facility] [id number] [facility] 2017-03-16 10:45:00 2017-03-16 10:45:00 Outpatient [facility] [id number] [employer] 2017-03-09 00:00:00 2017-03-09 00:00:00 Outpatient [facility] [id number] [facility] 2017-03-08 00:00:00 2017-03-08 00:00:00 Outpatient [facility] [id number] [facility] 2017-02-17 15:42:22 2017-02-17 15:42:22 Outpatient [facility] [id number] [facility] 2017-01-30 10:06:03 2017-01-30 10:06:03 Outpatient [facility] [id number] [facility] 2017-01-19 00:00:00 2017-01-19 00:00:00 Outpatient [facility] [id number] [facility] 2017-01-04 12:46:57 2017-01-04 12:46:57 Outpatient [facility] [id number] [facility] 2016-12-02 10:50:46 2016-12-02 10:50:46 Outpatient [facility] [id number] [facility] 2016-11-22 10:30:00 2016-11-22 10:30:00 Outpatient [facility] [id number] [employer] 2016-09-21 09:45:00 2016-09-21 09:45:00 Outpatient [facility] [id number] [employer] 2016-06-07 14:15:00 2016-06-07 14:15:00 Outpatient [facility] [id number] [employer] 2016-03-08 20:00:00 2016-03-08 20:00:00 f/u 3 james Dur[place], [place] [id number] [facility] 2016-03-08 14:00:00 2016-03-08 14:00:00 Outpatient Roger Duran MD, L[place], [place] [id number] [facility] 2015-12-01 20:15:00 2015-12-01 20:15:00 F/U TESTING LESLY Duran MD, [place] [id number] [facility] 2015-12-01 20:15:00 2015-12-01 20:15:00 F/U TESTING LESLY Duran MD, LELIA [id number] [facility] 2015-12-01 20:15:00 2015-12-01 20:15:00 F/U [place] [id number] [facility] 2015-12-01 20:00:00 2015-12-01 20:00:00 [place] LESLY Duran [place] [id number] [facility] 2015-12-01 20:00:00 2015-12-01 20:00:00 [place] LESLY Duran [place], [place] [id number] [facility] 2015-12-01 20:00:00 2015-12-01 20:00:00 [place] [id number] [facility] 2015-12-01 14:15:00 2015-12-01 14:15:00 Outpatient Roger Duran MD, L[place], [place] [id number] [facility] 2015-12-01 14:00:00 2015-12-01 14:00:00 Outpatient Roger Duran MD, [place], [place] [id number] [employer] 2015-11-09 17:30:00 2015-11-09 17:30:00 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-hx of Hyperlipidemia,High BP,CHF,CP LESLY Duran MD, PA [id number] [facility] 2015-11-09 17:30:00 2015-11-09 17:30:00 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-hx of Hyperlipidemia,High BP,CHF,CP CHERRYT Roger Duran MD, PA [id number] [facility] 2015-11-09 17:30:00 2015-11-09 17:30:00 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-hx of Hyperlipidemia,High BP,CHF,CP LESLY Duran MD, [place] [id number] [facility] 2015-11-09 17:30:00 2015-11-09 17:30:00 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-hx of Hyperlipidemia,High BP,CHF,CP LESLY Duran MD, [place] [id number] [facility] 2015-11-09 11:30:00 2015-11-09 11:30:00 Outpatient Roger Duran MD, [place], [place] [id number] [employer] Results Test Description Test Time Test Comments Results Result Comments Source KNEE THREE VIEWS BILATERAL 2019-09-24 00:56:00 [place] [address] Patient Name: AHSA ESCALANTE MR #: [id number] : 1960 Age/Sex: 59/F Req #: [id number] Adm Physician: Ordered by: DESTINEY BARBOUR DO Report #: [id number] Location: ER Room/Bed: Procedure: [id number] DX/KNEE THREE VIEWS BILATERAL Exam Date: Exam Time: REPORT STATUS: Signed X-ray left knee 3 views - 3 views HISTORY: Pain. COMPARISON: None available. FINDINGS: Bones: No acute displaced fracture. Osseous alignment is within normal limits. Joints: Tricompartmental osteophytes. Joint space narrowing of the medial tibiofemoral and patellofemoral compartments. Soft tissues: Soft tissue swelling about the knee. IMPRESSION: No acute radiographic osseous abnormality. Degenerative changes in the knee. Soft tissue swelling about the knee. Signed by: Kenan Muhammad DO on 09/24/2019 12:58 AM Dictated By: KENAN MUHAMMAD DO Transcribed By: JAMAICA on 09/24/1957 COPY TO: DESTINEY BARBOUR DO SHOULDER RIGHT COMPLETE 2019-09-24 00:55:00 [place] [address] Patient Name: ASHA ESCALANTE MR #: [id number] : 1960 Age/Sex: 59/F Req #: [id number] Adm Physician: Ordered by: DESTINEY BARBOUR DO Report #: [id number] Location: ER Room/Bed: Procedure: DX/SHOULDER RIGHT COMPLETE Exam Date: Exam Time: REPORT STATUS: Signed X-ray right shoulder 2 views HISTORY: Pain. COMPARISON: None available. FINDINGS: Right IJ central venous catheter, tip in the low SVC. Bones: No acute displaced fracture. Osseous alignment is within normal limits. Joints: Degenerative changes in the acromioclavicular and glenohumeral joint. Soft tissues: The soft tissues appear unremarkable. IMPRESSION: No acute radiographic abnormality. Degenerative changes in the shoulder. Signed by: Kenan Muhammad DO on 09/24/2019 12:56 AM Dictated By: KENAN MUHAMMAD DO Transcribed By: JAMAICA on 09/24/1955 COPY TO: DESTINEY BARBOUR DO CHEST SINGLE (PORTABLE) 2019-09-24 00:51:00 [place] [address] Patient Name: ASHA ESCALANTE MR #: [id number] : 1960 Age/Sex: 59/F Req #: [id number] [facility] Physician: Ordered by: DESTINEY BARBOUR DO Report #: [id number] Location: ER Room/Bed: Procedure: DX/CHEST SINGLE (PORTABLE) Exam Date: Exam Time: REPORT STATUS: Signed EXAMINATION: CHEST SINGLE (PORTABLE) INDICATION: Short of breath, follow COMPARISON: Chest x-ray 07/29/2019 FINDINGS: TUBES and LINES: Right IJ central venous catheter, tip in the low SVC. LUNGS: Low lung volumes. Prominent central pulmonary vasculature. Mild prominence of pulmonary interstitial lung markings. PLEURA: No pleural effusion or pneumothorax. HEART AND MEDIASTINUM: Cardiac size is mildly enlarged. BONES AND SOFT TISSUES: No acute osseous lesion. Soft tissues are unremarkable. Degenerative changes in the spine and shoulders. UPPER ABDOMEN: No free air under the diaphragm. IMPRESSION: Mild cardiomegaly and pulmonary vascular congestion, pulmonary interstitial edema is possible. Signed by: Kenan Muhammad DO on 09/24/2019 12:55 AM Dictated By: KENAN MUHAMMAD DO Transcribed By: JAMAICA on 09/24/1954 COPY TO: DESTINEY BARBOUR DO CHEST 2 VIEWS 2019-07-29 13:05:00 [place] [address] Patient Name: ASHA ESCALANTE MR #: [id number] : 1960 Age/Sex: 59/F Req #: [id number] Adm Physician: Ordered by: SHAYAN STEIN MD Report #: [id number] Location: [facility] Room/Bed: Procedure: [id number] DX/CHEST 2 VIEWS Exam Date: 07/29/19 Exam Time: 1230 REPORT STATUS: Signed EXAMINATION: CHEST 2 VIEWS INDICATION: COPD COMPARISON: Chest radiograph 06/21/2019 FINDINGS: LINES/TUBES:Right IJ tunneled hemodialysis catheter terminates in the superior vena cava. LUNGS:The lungs are well-inflated. There is per ihilar fullness and indistinctness of the pulmonary vasculature. PLEURA:No pleural effusion or pneumothorax. MEDIASTINUM:The cardiomediastinal silhouette appears unchanged in size and shape. BONES/SOFT TISSUES:No acute osseous injury. ABDOMEN:No free air under the diaphragm. IMPRESSION: Mild pulmonary interstitial edema. No focal pneumonia. Signed by: Isabel Garcia MD on 07/29/2019 1:06 PM Dictated By: ISABEL GARCIA MD 05 Transcribed By: JAMAICA on 07/29/191305 COPY TO: SHAYAN STEIN MD Methylmalonic Acid 2019-07-09 12:13:00 Test Item Methylmalonic Acid (test code = 44555-9) 654 Reference Range:0 - 378 nmol/L Disclaimer: This test was developed and its perfo rmance characteristics determined by [facility]. It has not been cleared or approve d by the Food and Drug Administration.Testing performed by:[facility] [address] [phone]. Ayden Cota [facility]ANCA Hffxn3198-19-69 23:50:00* Test Item Value Reference Range Interpretation Comments p-ANCA Titer (test code = 47661-0) <1:20 Neg:<1:20 The presence of positive fluorescence exhibiting P-ANCA orC-ANCA patterns alone is not specific for the diagnosis ofWegener's Granulomatosis (WG) or microscopic polyangiitis.Decisions about treatment should not be based solely onANCA IFA re sults. The International ANCA Group Consensusrecommends follow up testing of po sitive sera with both MI-3 and MPO-ANCA enzyme immunoassays. As many as 5% serum samples are positive only by EIA. Ref. AM J Clin Auzzmq2657;111:507-513.[facility] Centerc-ANCA Xmwmj6975-69-32 23:50:00* Test Item Value Reference Range Interpretation Comments c-ANCA Titer (test code = 38282-5) <1:20 Neg:<1:20 [facility] CenterAtypical q-[id number] 23:50:00* Test Item Value Reference Range Interpretation Comments Atypical p-ANCA (test code = 95075-4) <1:20 Neg:<1:20 The atypical pANCA pattern has been observed in asignificant percentage of patie nts with ulcerative colitis,primary sclerosing cholangitis and autoimmune hepati tis.Performed at: [facility] Lab[address] [id number]Lab Director: Ce Holliday MD, Phone: [phone] Sol Medical CenterBedside Pemlyao9400-67-29 19:06:00* Test Item Value Reference Range Interpretation Comments Bedside Glucose (test code = 63189-6) 215 70-120 Meter ID: [id number] E. DeBakey [facility] of Veterans Affairs Medical Centerodium Level 2019-07-02 11:17:00* Test Item Value Reference Range Interpretation Comments Sodium Level (test code = 2951-2) 125 136-145 [facility] CenterPotassium Kgrxn6338-56-47 11:17:00* Test Item Value Reference Range Interpretation Comments Potassium Level (test code = 2823-3) 3.6 3.5-5.1 [facility] CenterChloride Clgce5136-15-77 11:17:00* Test Item Value Reference Range Interpretation Comments Chloride Level (test code = 2075-0) 92 98-107 [facility] CenterCarbon Dioxide Xwyvq4744-66-22 11:17:00* Test Item Value Reference Range Interpretation Comments Carbon Dioxide Level (test code = 2028-9) 25 22-29 [facility] CenterAnion Lcf1610-87-17 11:17:00* Test Item Value Reference Range Interpretation Comments Anion Gap (test code = 51832-7) 11.6 8-16 [facility] CenterBlood Urea Mekavjmf0972-44-47 11:17:00* Test Item Value Reference Range Interpretation Comments Blood Urea Nitrogen (test code = 3094-0) 32 7-26 [facility] CenterCreatinine2019-12-31 11:17:00* Test Item Value Reference Range Interpretation Comments Creatinine (test code = 2160-0) 1.93 0.57-1.11 [facility] CenterBUN/Creatinine Jqdcp1684-52-96 11:17:00* Test Item Value Reference Range Interpretation Comments BUN/Creatinine Ratio (test code = 3097-3) 17 6-25 [facility] CenterEstimat Glomerular Filtration Rate 2019-07-02 11:17:00* Test Item Value Reference Range Interpretation Comments Estimat Glomerular Filtration Rate (test code = 877446222) 27 >60 Ranges were taken from the National Kidney Disease Education Program and the [facility] Kid[facility] Foundation literature.Reference ranges:60 or greater: Xhsyed65-51 ( for 3 consecutive months): Chronic kidney disease 15 or less: Kidney failureDel Sol Medical CenterGlucose Eahge7625-98-01 11:17:00* Test Item Value Reference Range Interpretation Comments Glucose Level (test code = XNC2921) 222 74-118 [facility] CenterCalcium Jdacq8060-92-25 11:17:00* Test Item Value Reference Range Interpretation Comments Calcium Level (test code = 10077-8) 8.2 8.4-10.2 [facility] CenterWhite Blood Mswqc0212-50-64 11:05:00* Test Item Value Reference Range Interpretation Comments White Blood Count (test code = 6690-2) 6.83 4.8-10.8 [facility] CenterRed Blood Muzdj6502-03-57 11:05:00* Test Item Value Reference Range Interpretation Comments Red Blood Count (test code = 789-8) 2.43 3.6-5.1 [facility] CenterHemoglobin2019-12-31 11:05:00* Test Item Value Reference Range Interpretation Comments Hemoglobin (test code = 24824-8) 7.5 12.0-16.0 Results called to CALDERON MANUEL at 1105 on 07/02/19 by Carloz Chandler. RB [place].[facility] CenterHematocrit2019-12-31 11:05:00* Test Item Value Reference Range Interpretation Comments Hematocrit (test code = 4544-3) 22.6 34.2-44.1 Results called to CALDERON ZAPATA at 1102 on 07/02/19 by Carloz Chandler. [place].[facility] CenterMean Corpuscular Jwkefg1308-04-43 11:05:00* Test Item Value Reference Range Interpretation Comments Mean Corpuscular Volume (test code = 787-2) 93.0 81-99 [facility] CenterMean Corpuscular Yvlrbjptrr2915-01-92 11:05:00* Test Item Value Reference Range Interpretation Comments Mean Corpuscular Hemoglobin (test code = 785-6) 30.9 28-32 [facility] CenterMean Corpuscular Hemoglobin Concent 2019-07-02 11:05:00* Test Item Value Reference Range Interpretation Comments Mean Corpuscular Hemoglobin Concent (test code = 786-4) 33.2 31-35 [facility] CenterRed Cell Distribution Ofblw3618-48-83 11:05:00* Test Item Value Reference Range Interpretation Comments Red Cell Distribution Width (test code = 03621-5) 15.0 11.7 -14.4 [facility] CenterPlatelet Ydiwp1657-17-81 11:05:00* Test Item Value Reference Range Interpretation Comments Platelet Count (test code = 777-3) 164 140-360 [facility] CenterNeutrophils (%) (Auto)2019-07-02 11:05:00 * Test Item Value Reference Range Interpretation Comments Neutrophils (%) (Auto) (test code = 09092-3) 73.7 38.7-80.0 [facility] CenterLymphocytes (%) (Auto)2019-07-02 11:05:00 * Test Item Value Reference Range Interpretation Comments Lymphocytes (%) (Auto) (test code = 736-9) 15.8 18.0-39.1 [facility] CenterMonocytes (%) (Auto)2019-07-02 11:05:00* Test Item Value Reference Range Interpretation Comments Monocytes (%) (Auto) (test code = 5905-5) 7.5 4.4-11.3 [facility] CenterEosinophils (%) (Auto)2019-07-02 11:05:00 * Test Item Value Reference Range Interpretation Comments Eosinophils (%) (Auto) (test code = 713-8) 2.3 0.0-6.0 [facility] CenterBasophils (%) (Auto)2019-07-02 11:05:00* Test Item Value Reference Range Interpretation Comments Basophils (%) (Auto) (test code = 706-2) 0.3 0.0-1.0 [facility] CenterIM GRANULOCYTES %2019-07-02 11:05:00* Test Item Value Reference Range Interpretation Comments IM GRANULOCYTES % (test code = IM GRANULOCYTES %) 0.4 0.0- 1.0 [facility] CenterNeutrophils # (Auto)2019-07-02 11:05:00* Test Item Value Reference Range Interpretation Comments Neutrophils # (Auto) (test code = 751-8) 5.0 2.1-6.9 [facility] CenterLymphocytes # (Auto)2019-07-02 11:05:00* Test Item Value Reference Range Interpretation Comments Lymphocytes # (Auto) (test code = 07256-9) 1.1 1.0-3.2 [facility] CenterMonocytes # (Auto)2019-07-02 11:05:00* Test Item Value Reference Range Interpretation Comments Monocytes # (Auto) (test code = 742-7) 0.5 0.2-0.8 [facility] CenterEosinophils # (Auto)2019-07-02 11:05:00* Test Item Value Reference Range Interpretation Comments Eosinophils # (Auto) (test code = 711-2) 0.2 0.0-0.4 [facility] CenterBasophils # (Auto)2019-07-02 11:05:00* Test Item Value Reference Range Interpretation Comments Basophils # (Auto) (test code = 704-7) 0.0 0.0-0.1 [facility] CenterAbsolute Immature Granulocyte (auto 2019-07-02 11:05:00* Test Item Value Reference Range Interpretation Comments Absolute Immature Granulocyte (auto (barak t code = Absolute Immature Granulocyte (auto) 0.03 0-0.1 [facility] CenterBlood Cngqgdo0040-38-15 08:25:00* Test Item Value Reference Range Interpretation Comments Blood Culture (test code = 32142393) NO GROWTH AFTER 5 DAYS, FINAL REPORT [facility] CenterTotal Hjqzccrhb6171-88-25 08:07:00* Test Item Value Reference Range Interpretation Comments Total Bilirubin (test code = 1975-2) 0.6 0.2-1.2 [facility] CenterAspartate Amino Transf (AST/SGOT) 2019-06-30 08:07:00* Test Item Value Reference Range Interpretation Comments Aspartate Amino Transf (AST/SGOT) (test code = Aspartate Amino Transf (AST/SGOT)) 24 5-34 [facility] CenterAlanine Aminotransferase (ALT/SGPT) 2019-06-30 08:07:00* Test Item Value Reference Range Interpretation Comments Alanine Aminotransferase (ALT/SGPT) (test code = 1742-6) 20 0-55 [facility] CenterTotal Fgoeexs0904-65-25 08:07:00* Test Item Value Reference Range Interpretation Comments Total Protein (test code = 2885-2) 8.2 6.5-8.1 [facility] CenterAlbumin2019-12-29 08:07:00* Test Item Value Reference Range Interpretation Comments Albumin (test code = 1751-7) 2.8 3.5-5.0 [facility] CenterGlobulin2019-12-29 08:07:00* Test Item Value Reference Range Interpretation Comments Globulin (test code = 00958-3) 5.4 2.3-3.5 [facility] CenterAlbumin/Globulin Psgbo5377-75-10 08:07:00 * Test Item Value Reference Range Interpretation Comments Albumin/Globulin Ratio (test code = 1759-0) 0.5 0.8-2.0 [facility] CenterAlkaline Vqzashwicnk9147-61-64 08:07:00* Test Item Value Reference Range Interpretation Comments Alkaline Phosphatase (test code = 6768-6) 229 40-150 [facility] CenterAnti-Nuclear Antibody Doadss9898-68-61 21:35:00* Test Item Value Reference Range Interpretation Comments Anti-Nuclear Antibody Screen (test code = 5048-4) Negative . Negative <1:80 Borderline 1:80 Positive > 1:80Performed at: [facility] Lab[address] [id number] 3Lab Director: Cuba Santana MD, Phone: [phone] Sol Medical CenterRheumatoid Fosufl4434-77-30 21:35:00* Test Item Value Reference Range Interpretation Comments Rheumatoid Factor (test code = 46473-8) <10.0 0.0-13.9 Performed at: [facility] [address] [id number] Director: Cuba Santana MD, Phone: [phone] Sol Medical CenterComplement X44382-37-52 21:35:00* Test Item Value Reference Range Interpretation Comments Complement C3 (test code = 4485-9) 136 82-167 [facility] CenterComplement T55921-69-06 21:35:00* Test Item Value Reference Range Interpretation Comments Complement C4 (test code = 4498-2) 25 14-44 [facility] CenterMOD SEDATE INITIAL >5 OMY1632-60-43 12:31:00 [facility] [address] [place] [address] Patient Name: ASHA ESCALANTE MR #: [id number] : 1960 Age/Sex: 59/F Req #: [id number] Adm Physician: BONY BRUNO MD Ordered by: HEATH ANDREA MD Report #: [id number] Location: [place] [address] Room/Bed: [facility] Procedure: [id number] DX/MOD SEDATE INITIAL >5 YRS Exam Date: 07/15/19 Exam Time: 1150 REPORT STATUS: Signed Tunneled dialysis catheter insertion, 06/28/2019. History: Renal failure. Modality: Sonography and fluoroscopy. Sedation: Versed 1.0 mg and fentanyl 50 mcg was given intravenously for conscious sedation. Vital signs were monitored throughout the procedure by a nurse, and remained stable. Physician intra-service time was 20 minutes. Team Manager: Harvey. Business Solutions Consultant: None. Approach: Right internal jugular vein Estimated blood loss: < 5 cc. Specimen: None. Fluoroscopy Time: 0.1 min. Dose (Ka,r): 0.5 mGy. Technique: Informed written consent was obtained. Discussion of risks, benefits, and alternatives were made with the patient. The patient expressed understanding and agreed to proceed. All elements maximal sterile barrier technique was utilized for this procedure, including utilization of sterile scrub solution for skin prep, a large sterile sheet to cover the areas of the patient that were not prepped, and hand hygiene, mask, head covering, and sterile gown for performing radiologist and scrub technologist. The skin was anesthetized with 2% lidocaine.Ultrasound evaluation showed a patent and compressible right internal jugular vein, which was punctured under direct real-time ultrasound guidance with a micropuncture needle. An ultrasound image was saved to PACS. A 0.018 inch wire was placed through the needle into the right atrium. A 4 American micropuncture sheath was placed. A subcutaneous tunnel was created in the right anterior chest wall by blunt dissection. A 19 cm the tip 14.5 American dialysis catheter was brought through the tunnel. The vessel tract was serially dilated over a J-wire. A peel-away sheath was placed in the right IJ vein and the catheter was advanced through the sheath, with its distal tip terminating in the right atrium. The peel-away sheath was removed. The ports were flushed and aspirated easily following placement. The catheter was sutured to the skin with 2-0 silk to secure its placement. The small jugular incision site was closed using resorbable suture. The existing temporary hemodialysis catheter was then removed. Vital signs were monitored throughout the procedure by a nurse, and remained stable. The patient tolerated the procedure well and left the department in the same condition.. Results: Spot radiograph of the chest demonstrates the new dialysis catheter to lie in the expected position with its tip overlying the superior right atrium. Impression: Successful, uncomplicated placement of a right internal jugular tunneled dialysis catheter using sonographic and fluoroscopic guidance and conscious sedation. Signed by: Heath Andrea MD on 06/28/2019 12:32 PM Dictated By: HEATH ANDREA MD 18 Transcribed By: [place] on 07/17/191418 COPY TO: HEATH ANDREA MD US GUIDANCE FOR VASCULAR XOTFD4101-00-14 12:31:00 [place] [address] Patient Name: ASHA ESCALANTE MR #: [id number] : 1960 Age/Sex: 59/F Req #: [id number] Adm Physician: BONY BRUNO MD Ordered by: MIRTA MATIAS, MYRIAM MATIAS Report #: [id number] Location: MED/SURG2 Room/Bed: [facility] Procedure: [id number] US /US GUIDANCE FOR VASCULAR ACCES Exam Date: 06/28/19 Exam Time: 1134 REPORT STATUS: Sign ed Tunneled dialysis catheter insertion, 06/28/2019. History: Renal failure. Modality: Sonography and fluoroscopy. Sedation: Versed 1.0 mg and fentanyl 50 mcg was given intravenously for conscious sedation. Vital signs were monitored throughout the procedure by a nurse, and remained stable. Physician intra-service time was 20 minutes. Team Manager: Harvey. Business Solutions Consultant: None. Approach: Right internal jugular vein Estimated blood loss: < 5 cc. Specimen: None. Fluoroscopy Time: 0.1 min. Dose (Ka,r): 0.5 mGy. Technique: Informed written consent was obtained. Discussion of risks, benefits, and alternatives were made with the patient. The patient expressed understanding and agreed to proceed. All elements maximal sterile barrier technique was utilized for this procedure, including utilization of sterile scrub solution for skin prep, a large sterile sheet to cover the areas of the patient that were not prepped, and hand hygiene, mask, head covering, and ster ile gown for performing radiologist and scrub technologist. The skin was a nesthetized with 2% lidocaine.Ultrasound evaluation showed a patent and compre ssible right internal jugular vein, which was punctured under direct real-time ultrasound guidance with a micropuncture needle. An ultrasound image was sofia ed to PACS. A 0.018 inch wire was placed through the needle into the ri t atrium. A 4 American micropuncture sheath was placed. A subcutaneous tunnel was created in the right anterior chest wall by blunt dissection. A 19 cm the tip 14.5 American dialysis catheter was brought through the tunnel. The vessel tract was serially dilated over a J-wire. A peel-away sheath was placed in the right IJ vein and the catheter was advanced through the sheath, with its dis rafael tip terminating in the right atrium. The peel-away sheath was removed. Th e ports were flushed and aspirated easily following placement. The catheter w as sutured to the skin with 2-0 silk to secure its placement. The small jugul ar incision site was closed using resorbable suture. The existing temporary he modialysis catheter was then removed. Vital signs were monitored throughout th e procedure by a nurse, and remained stable. The patient tolerated the proced ure well and left the department in the same condition.. Results: Spot radiograph of the chest demonstrates the new dialysis maikel ter to lie in the expected position with its tip overlying the superior right atrium. Im pression: Succes sful, uncomplicated placement of a right internal jugular tunneled dialysis ca theter using sonographic and fluoroscopic guidance and conscious sedation. Signed by: Heath Andrea MD on 06/28/2019 12:32 PM Dictated By: HEATH ANDREA MD 18 Transcribed By: J[place]ICA on 07/17/191418 COPY TO: MYRIAM KIRBY TUNNELLED CVC INSERT W/O [id number] 12:31:00 [place] [address] Patient Name: ASHA ESCALANTE MR #: [id number] : 1960 Age/Sex: 59/F Req #: [id number] Adm Physician: BONY BRUNO MD Ordered by: MIRTA MATIAS, MYRIAM MATIAS Report #: [id number] Location: MED/SURG2 Room/Bed: [facility] Procedure: [id number] IR /TUNNELLED CVC INSERT W/O PORT Exam Date: Exam Time : REPORT STATUS: Signed [place] dialysis catheter insertion, 06/28/2019. History: Renal failure. Modality: Sonography and fluoroscopy. Sedation: Versed 1.0 mg and fentanyl 50 mcg was given intravenously for co nscious sedation. Vital signs were monitored throughout the procedure by a nu rse, and remained stable. Physician intra-service time was 20 minutes. Team Manager: Harvey. Business Solutions Consultant: None. Approach: Right internal jugular vein Estimated blood loss: < 5 cc. Specimen: None. Fluoroscopy Time: 0.1 min. Dose (Ka,r): 0.5 mGy. Technique: Informed written consent was obtained. Discussion of risks, benefits, and alternatives were made with the patient. The patient expressed understanding and agreed to proceed. All elements maximal sterile barrier technique was utilized for this procedure, including utilization of sterile scrub solution for skin prep, a large sterile sheet to cover the areas of the patient that were not prepped, and hand hygiene, mask, head covering, and sterile gown for performing radiologist and scrub technologist. The skin was anesthetized with 2% lidocaine.Ultrasound evaluation showed a patent and compressible right internal jugular vein, which was punctured under direct real-time ultrasound guidance with a micropuncture needle. An ultrasound image was saved to PACS. A 0.018 inch wire was placed through the needle into the right atrium. A 4 American micropuncture sheath was placed. A subcutaneous tunnel was created in the right anterior chest wall by blunt dissection. A 19 cm the tip 14.5 American dialysis catheter was brought through the tunnel. The vessel tract was serially dilated over a J-wire. A peel-away sheath was placed in the right IJ vein and the catheter was advanced through the sheath, with its distal tip terminating in the right atrium. The peel-away sheath was removed. The ports were flushed and aspirated easily following placement. The catheter was sutured to the skin with 2-0 silk to secure its placement. The small jugular incision site was closed using resorbable suture. The existing temporary he modialysis catheter was then removed. Vital signs were monitored throughout th e procedure by a nurse, and remained stable. The patient tolerated the proced ure well and left the department in the same condition.. Results: Spot radiograph of the chest demonstrates the new dialysis maikel ter to lie in the expected position with its tip overlying the superior right atrium. Im pression: Succes sful, uncomplicated placement of a right internal jugular tunneled dialysis ca theter using sonographic and fluoroscopic guidance and conscious sedation. Signed by: Heath Andrea MD on 06/28/2019 12:32 PM Dictated By: HEATH ANDREA MD 18 Transcribed By: J[place]ICA on 07/17/191418 COPY TO: MYRIAM KIRBY Lactate Easvvzkeuvzbl8796-25-78 09:03:00* Test Item Value Reference Range Interpretation Comments Lactate Dehydrogenase (test code = 545903535) 169 125-220 [facility] Tvbvf9902-18-67 06:14:00* Test Item Value Reference Range Interpretation Comments Phosphorus Level (test code = GGU0514) 5.8 2.3-4.7 [facility] CenterMODIFIED BA. [id number] 14:00:00 [place] [address] Patient Name: ASHA ESCALANTE MR #: [id number] : 1960 Age/Sex: 59/F Req #: [id number] Adm Physician: BONY BRUNO MD Ordered by: BONY BRUNO MD Report #: [id number] Location: IMCU Room/Bed: IMCU 199-1 Procedure: [id number] DX /MODIFIED BA. SWALLOW Exam Date: 06/24/19 Exam Time: 1130 REPORT STATUS: Signed PROC EDURE: X-RAY MODIFIED BARIUM SWALLOW COMPARISON: None. INDICATION: As piration Radiation Details: Fluoroscopy time: 1.3 minutes Cumulative do se: 12.1 mGy DISCUSSION: Fluoroscopic examination was performed in conjunct ion with speech pathology during swallowing a variety of thin and thick liquid consistencies. Provided images demonstrate laryngeal penetration and aspirati on. CONCLUSION: Modified barium swallow demonstrating laryngeal penetra tion and aspiration. Please refer to the speech pathology report for further d etails. Signed by: Isabel Garcia MD on 06/24/2019 2:00 PM Dictated By: ISABEL GARCIA MD 1400 Transc ribed By: J[place]ICA on 06/24/19 1400 COPY TO: BONY BRUNO MD Magnesium Bgzkl0475-69-18 05:51:00* Test Item Value Reference Range Interpretation Comments Magnesium Level (test code = 42042-6) 2.3 1.3-2.1 [facility]2019-06-21 08:58:00 [facility] [address] [place] [address] Patient Name: ASHA ESCALANTE MR #: [id number] : 1960 Age/Sex: 59/F Req #: [id number] Adm Physician: BONY BRUNO MD Ordered by: MARTY GREENWOOD MD Report #: [id number] Location: ICU Room/Bed: ICU 192-1 Procedure: [id number] DX/CH EST SINGLE (PORTABLE) Exam Date: 06/21/19 Exam Time: 0445 REPORT STATUS: Signed EXAM INATION: CHEST SINGLE (PORTABLE) INDICATION: Pneumonia COMPARISON : Chest radiograph 06/20/2019 FINDINGS: The study is underpenetra magaly due to patient body habitus and portable technique. LINES/TUBES:Under penetrated study. The tip of the endotracheal tube is not well visualized. Rig ht IJ central venous catheter terminates in the superior vena cava. EKG leads overlie the chest. LUNGS:The lung volumes are low. There is perihilar fulln ess and indistinctness of the pulmonary vasculature. Multifocal patchy airspac e opacities, somewhat improved from 06/18/2019 and 06/20/2019. PLEURA:No pleural effusion or pneumothorax. MEDIASTINUM:The cardiomediastinal silhoue tte appears unchanged in size and shape. BONES/SOFT TISSUES:No acute osse ous injury. ABDOMEN:No free air under the diaphragm. IMPRESSION: Underpenetrated study. Tip of endotracheal tube is not well visualized. So me interval improvement in bilateral multifocal patchy opacities. Signed by : Isabel Garcia MD on 06/21/2019 9:00 AM Dictated By: ISABEL GARCIA MD Electr onically Signed By: ISABEL GARCIA MD on 06/21/19899 Transcribed By: JAMAICA on 1 08/22/18899 COPY TO: MARTY GREENWOOD MD Urine [id number] 07:00:00* Test Item Value Reference Range Interpretation Comments Urine WBC (test code = 5821-4) 21-50 0-5 [facility] BCW3809-74-77 07:00:00* Test Item Value Reference Range Interpretation Comments Urine RBC (test code = 08417-5) >50 0-5 [facility] Ifmjrbvo5661-06-15 07:00:00* Test Item Value Reference Range Interpretation Comments Urine Bacteria (test code = 67636-9) MANY NONE [facility] Epithelial Fukus4112-06-67 07:00:00 * Test Item Value Reference Range Interpretation Comments Urine Epithelial Cells (test code = 28886-0) MODERATE NONE [facility] Cvadw2456-96-67 06:45:00* Test Item Value Reference Range Interpretation Comments Urine Color (test code = 5778-6) YELLOW YELLOW [facility] Pgngbdn4742-32-28 06:45:00* Test Item Value Reference Range Interpretation Comments Urine Clarity (test code = 96448-2) CLOUDY CLEAR [facility] Specific Fgduxhn4343-60-19 06:45:00 * Test Item Value Reference Range Interpretation Comments Urine Specific [place] (test code = 5811-5) 1.025 1.010-1.02 5 [facility] gC2067-17-69 06:45:00* Test Item Value Reference Range Interpretation Comments Urine pH (test code = 87055-3) 5.5 5-7 [facility] Leukocyte Hvexwksr5986-57-35 06:45:00* Test Item Value Reference Range Interpretation Comments Urine Leukocyte Esterase (test code = 49931-5) TRACE NEGATIV E [facility] Oekuwjb6287-40-33 06:45:00* Test Item Value Reference Range Interpretation Comments Urine Nitrite (test code = 15042-7) NEGATIVE NEGATIVE [facility] Ietnzbh4446-72-49 06:45:00* Test Item Value Reference Range Interpretation Comments Urine Protein (test code = 46836-2) 2+ NEGATIVE [facility] Glucose (UA)2019-06-21 06:45:00* Test Item Value Reference Range Interpretation Comments Urine Glucose (UA) (test code = 15895-1) NEGATIVE NEGATIVE [facility] Ueaqjys3874-10-66 06:45:00* Test Item Value Reference Range Interpretation Comments Urine Ketones (test code = 78027-1) TRACE NEGATIVE [facility] Pgsjlwyzbkbw0122-21-88 06:45:00* Test Item Value Reference Range Interpretation Comments Urine Urobilinogen (test code = 97703-1) 0.2 0.2-1 [facility] Uewxvpjke9627-02-41 06:45:00* Test Item Value Reference Range Interpretation Comments Urine Bilirubin (test code = 1977-8) SMALL NEGATIVE [facility] Pnmvs5275-84-76 06:45:00* Test Item Value Reference Range Interpretation Comments Urine Blood (test code = 44238-8) 3+ NEGATIVE [facility] CenterAmmonia2019-12-20 06:40:00* Test Item Value Reference Range Interpretation Comments Ammonia (test code = 13953-6) 41 31-123 [facility] CenterAmylase Emxgx0564-11-11 05:59:00* Test Item Value Reference Range Interpretation Comments Amylase Level (test code = 1798-8) 90 25-125 [facility] CenterLipase2019-12-20 05:59:00* Test Item Value Reference Range Interpretation Comments Lipase (test code = 3040-3) 91 8-78 [facility] CenterArterial Blood tS1843-89-39 05:40:00* Test Item Value Reference Range Interpretation Comments Arterial Blood pH (test code = 2744-1) 7.50 7.31-7.41 [facility] CenterArterial Blood Partial Pressure CO2 2019-06-21 05:40:00* Test Item Value Reference Range Interpretation Comments Arterial Blood Partial Pressure CO2 (test code = 2018-) 34 41-51 [facility] CenterArterial Blood Partial Pressure O2 2019-06-21 05:40:00* Test Item Value Reference Range Interpretation Comments Arterial Blood Partial Pressure O2 (test code = 2018-) 68 80-105 [facility] CenterArterial Blood LLI40957-03-40 05:40:00* Test Item Value Reference Range Interpretation Comments Arterial Blood HCO3 (test code = 1960-4) 27 23-28 [facility] CenterAr[facility] Blood Base Ozsvyt8369-28-51 05:40:00* Test Item Value Reference Range Interpretation Comments Arterial Blood Base Excess (test code = 1925-7) 4.0 -2-3 [facility] CenterAr[facility] Blood Oxygen Saturation 2019-06-21 05:40:00* Test Item Value Reference Range Interpretation Comments Arterial Blood Oxygen Saturation (test code = 2708-6) 95.0 95-98 [facility] CenterFiO22019-12-20 05:40:00* Test Item Value Reference Range Interpretation Comments FiO2 (test code = FiO2) 40 PT. ON 5L [facility] 2019-06-20 08:08:00 [facility] [address] [place] [address] Patient Name: ASHA ESCALANTE MR #: [id number] : 1960 Age/Sex: 59/F Req #: [id number] Adm Physician: BONY BRUNO MD Ordered by: MARTY GREENWOOD MD Report #: [id number] Location: ICU Room/Bed: ICU [facility] Procedure: [id number] DX/CH EST SINGLE (PORTABLE) Exam Date: 06/20/19 Exam Time: 0545 REPORT STATUS: Signed Exam ination: Single AP view of the chest. COMPARISON: 06/18/2019 INDICATIO N: Intubated DISCUSSION: Endotracheal tube tip terminates approxi mately 2.6 cm above the josette. Enteric tube tip is poorly visualized but proj ects inferior to the left hemidiaphragm. Right internal jugular high flow cent ral venous catheter tip terminates over the superior cavoatrial junction. Lung volumes are low with persistent patchy bilateral airspace disease. No new con solidation or sizable oral effusion. Stable enlargement of the cardiac silh ouette. No acute osseous abnormalities. IMPRESSION: Stable posit ion of support lines and tubes when accounting for differences in patient posi tioning. Low lung volumes with unchanged multifocal airspace disease, which may reflect edema or multifocal pneumonia. Signed by: Dr. Marty Mejia M.D. on 06/20/2019 8:12 AM Dictated By: MARTY MEJIA MD 1 Transcribed By: J[place]ICA on 811 COPY TO: MARTY GREENWOOD MD B-Type Natriuretic Peptide 2019-06-19 05:33:00* Test Item Value Reference Range Interpretation Comments B-Type Natriuretic Peptide (test code = 63325-4) 156.1 0-100 [facility] Be Rwibsmiu1620-14-94 22:09:00 * Test Item Value Reference Range Interpretation Comments Hepatitis Be Antibody (test code = 71470-7) Negative Negative Performed at: - [facility] [id number] Product Development Coordinator: Ce Holliday MD, Phone: [phone] [facility] B Core Total Lqytqzrl7970-59-16 08:46:00* Test Item Value Reference Range Interpretation Comments Hepatitis B Core Total Antibody (test code = 65758-3) Negative Negative [facility] B Surface Irzsnfa6898-47-85 08:46:00* Test Item Value Reference Range Interpretation Comments Hepatitis B Surface Antigen (test code = 5196-1) Negative Negat edin [facility] B Core IgM Aolfawjw1467-40-88 08:46:00* Test Item Value Reference Range Interpretation Comments Hepatitis B Core IgM Antibody (test code = 65234-2) Negative Ne gative Performed at: - [facility] [address] [id number] Director: Cuba Santana MD, Phone: [phone] Sol Medical CenterCHEST SINGLE (PORTABLE)2019-06-18 08:25:00 [place] [address] Patient Name: ASHA ESCALANTE MR #: [id number] : 1960 Age/Sex: 59/F Req #: [id number] Adm Physician: BONY BRUNO MD Ordered by: MARTY GREENWOOD MD Report #: [id number] Location: ICU Room/Bed: ICU [facility] Procedure: [id number] DX/CH EST SINGLE (PORTABLE) Exam Date: 06/18/19 Exam Time: 0505 REPORT STATUS: Signed EXAM: CHEST SINGLE (PORTABLE) DATE: 06/18/2019 7:00 AM INDICATION: Intu bated COMPARISON: 06/16/2019 FINDINGS: Endotracheal tube terminate s approximately 3.7 cm above the josette. Right IJ central nontunneled dialysis catheter terminates over the inferior SVC. There are persistent bilateral increased interstitial and airspace opacities with slightly more conspicuous o pacities noted within the right upper lung zone. There is no evidence for pneu mothorax. There is blunting of the left greater than right costophrenic angles and trace effusions are possible. No significant volume of pleural fluid is i dentified. The cardiomediastinal silhouette is stable in appearance. No acu te osseous abnormality is identified. IMPRESSION: Persistent diff usely increased interstitial and airspace opacities with more prominent opacit ies noted within the right upper lung zone which may reflect edema and/or atel ectasis. A developing airspace process such as pneumonia cannot be entirely ex cluded. Signed by: Dr. Bart Villa MD on 06/18/2019 8:29 AM Dictat ed By: BART VILLA MD 28 Transcribed By: JAMAICA on 06/18/19828 COPY TO: MARTY GREENWOOD MD RENAL RETROPERITONEAL RZBK5227-52-97 16:01:00 [facility] [address] [place] [address] Patient Name: ASHA ESCALANTE MR #: [id number] : 1960 Age/Sex: 59/F Req #: [id number] Adm Physician: BONY BRUNO MD Ordered by: FELICIA GRAY MD Report #: [id number] Location: ICU Room/Bed: ICU [facility] Procedure: [id number] US/US RENAL RETROPERITONEAL COMP Exam Date: 06/17/19 Exam Time: 1443 REPORT STATUS: Signed EXAM: Renal Ultrasound INDICATION: ABNORMAL RENAL FUNCTION 2018 1216 1443 Y COMPARISON: None TECHNIQUE: Transverse and longitudinal images of the kidneys and bladder were obtained. FINDINGS: R ight Kidney: Length: 9.4 cm Appearance: Normal echogenicity. Collecting system: No hydronephrosis Stones: None Cyst/Mass: None Left Kidney: Length: 12.3 cm Appearance: Normal echogenicity. Collecting system: No hy dronephrosis Stones: None Cyst/Mass: None Bladder: Mckeon catheter in the decompressed bladder. IMPRESSION: No hydronephrosis or renal calculi. Signed by: Isabel Garcia MD on 06/17/2019 4:02 PM Dictated By: ISABEL GARCIA MD 160 Transcribed By: J[place]ICA on 06/17/19 160 COPY TO: FELICIA GRAY MD Homocysteine 2019-06-17 11:12:00* Test Item Value Reference Range Interpretation Comments Homocysteine (test code = 47375-6) 12.8 0.0-15.0 Performed at: [address] [id number] Director: Cuba Santana MD, Phone: [phone] Sol Medical CenterIron Pakya0292-13-38 07:23:00* Test Item Value Reference Range Interpretation Comments Iron Level (test code = 2498-4) 70 50-170 [facility] CenterTotal Iron Binding Oysarwmt3904-90-25 07:23:00* Test Item Value Reference Range Interpretation Comments Total Iron Binding Capacity (test code = 2500-7) 237 261-4 78 [facility] CenterPercent Iron Fvmvhsvlhc1892-72-78 07:23:00* Test Item Value Reference Range Interpretation Comments Percent Iron Saturation (test code = 2502-3) 30 15-50 [facility] CenterTransferrin2019-12-16 07:23:00* Test Item Value Reference Range Interpretation Comments Transferrin (test code = 3034-6) 169 180-382 [facility] CenterCreatine Egffzb2385-28-69 21:47:00* Test Item Value Reference Range Interpretation Comments Creatine Kinase (test code = 2157-6) 124 29-168 [facility] CenterCreatine Kinase CH3610-51-58 21:47:00* Test Item Value Reference Range Interpretation Comments Creatine Kinase MB (test code = 65724-5) 2.50 0-5.0 [facility] CenterTroponin Z5573-05-81 21:47:00* Test Item Value Reference Range Interpretation Comments Troponin I (test code = PVL7917) 0.050 0-0.300 [facility] CenterDifferential Total Cells Counted 2019-06-16 10:58:00* Test Item Value Reference Range Interpretation Comments Differential Total Cells Counted (test code = Differen tial Total Cells Counted) 100 [facility] CenterNeutrophils % (Manual)2019-06-16 10:58:00 * Test Item Value Reference Range Interpretation Comments Neutrophils % (Manual) (test code = 16329-3) 89 40-74 [facility] CenterLymphocytes % (Manual)2019-06-16 10:58:00 * Test Item Value Reference Range Interpretation Comments Lymphocytes % (Manual) (test code = 737-7) 9 19-48 [facility] CenterMonocytes % (Manual)2019-06-16 10:58:00* Test Item Value Reference Range Interpretation Comments Monocytes % (Manual) (test code = 744-3) 1 3.4-9.0 [facility] CenterMyelocytes %2019-06-16 10:58:00* Test Item Value Reference Range Interpretation Comments Myelocytes % (test code = 749-2) 1 0-0 [facility] CenterNucleated Red Blood Pmvmx0283-91-39 10:58:00* Test Item Value Reference Range Interpretation Comments Nucleated Red Blood Cells (test code = 49521-8) 1 [facility] CenterPlatelet Xumqgkky6463-21-43 10:58:00* Test Item Value Reference Range Interpretation Comments Platelet Estimate (test code = 11018-5) ADEQUATE [facility] CenterPlatelet Morphology Cnoblnm4653-24-25 10:58:00* Test Item Value Reference Range Interpretation Comments Platelet Morphology Comment (test code = 61491-9) NORMAL [facility] CenterMacrocytosis2019-12-15 10:58:00* Test Item Value Reference Range Interpretation Comments Macrocytosis (test code = 738-5) SLIGHT [facility] CenterRed Cell Morphology Aonwoow7040-57-35 10:58:00* Test Item Value Reference Range Interpretation Comments Red Cell Morphology Comment (test code = 6742-1) NORMAL [facility] CenterCHEST SINGLE (PORTABLE)2019-06-16 09:55:00 [place] [address] Patient Name: ASHA ESCALANTE MR #: [id number] : 1960 Age/Sex: 59/F Req #: [id number] Adm Physician: BONY BRUNO MD Ordered by: MARTY GREENWOOD MD Report #: [id number] Location: ICU Room/Bed: ICU [facility] Procedure: [id number] DX/CH EST SINGLE (PORTABLE) Exam Date: 06/16/19 Exam Time: 0900 REPORT STATUS: Signed EXAM INATION: CHEST SINGLE (PORTABLE) INDICATION: SOB. COMPARISON: Ch est radiograph 06/16/2019. FINDINGS: TUBES and LINES: ET tube termi nates 3.4 cm above the josette. Right IJ central venous catheter terminates in the lower SVC. LUNGS: Lower lung volumes. Bilateral perihilar and interstit ial opacities are slightly increased. PLEURA: No significant pleural eff usion. No pneumothorax. HEART AND MEDIASTINUM: The cardiomediastinal silho uette is mildly enlarged. BONES AND SOFT TISSUES: No acute osseous abnorma lity. UPPER ABDOMEN: No free air under the diaphragm. IMPRESSION: Lines and tubes as above. No evidence of pneumothorax. Mild cardiomegal y. Low lung volumes with mildly increasing bilateral opacities, likely pulmona ry edema. Superimposed infection is possible in the appropriate clinical setti ng. Signed by: Dr. Brooke Lopez MD on 06/16/2019 9:57 AM Dictated By: BROOKE LOPEZ MD 6 Transc ribed By: JAMAICA on 06/16/19956 COPY TO: MARTY GREENWOOD MD Lactic Acid Msosv9799-38-75 09:18:00* Test Item Value Reference Range Interpretation Comments Lactic Acid Level (test code = Lactic Acid Level) 6.9 0.5- 2.0 Results repeated and called to Adenrich Sandoval at 0917 on 06/16/19 by Moris staley. Read back and verified.[facility] CenterTriglycerides Dsmwa6203-46-13 08:32:00* Test Item Value Reference Range Interpretation Comments Triglycerides Level (test code = 2571-8) 111 0-149 [facility] CenterCholesterol Fmlie9976-25-99 08:32:00* Test Item Value Reference Range Interpretation Comments Cholesterol Level (test code = 2093-3) 120 0-199 Less than 200 mg/dL Low Lmuq272 - 239 mg/dL Borderline Mgtb750 m g/dl and greater High Risk [facility] CenterLDL Wmqhouyzphv4338-86-05 08:32:00* Test Item Value Reference Range Interpretation Comments LDL Cholesterol (test code = 2089-1) 71 60-130 [facility] CenterHDL Wlxrqckekhy7681-32-08 08:32:00* Test Item Value Reference Range Interpretation Comments HDL Cholesterol (test code = 2085-9) 27 40-60 [facility] CenterCholesterol/HDL Leizm1306-89-03 08:32:00 * Test Item Value Reference Range Interpretation Comments Cholesterol/HDL Ratio (test code = 9830-1) 4.4 3.0-3.6 [facility] CenterHemoglobin A1c Qdvfcdx8669-64-37 07:15:00 * Test Item Value Reference Range Interpretation Comments Hemoglobin A1c Percent (test code = Hemoglobin A1c Percent) 7.5 4.0-7.0 [facility] CenterProthrombin Ghpw1049-39-48 07:03:00* Test Item Value Reference Range Interpretation Comments Prothrombin Time (test code = 5902-2) 16.0 11.9-14.5 [facility] CenterProthromb Time International Ratio 2019-06-16 07:03:00* Test Item Value Reference Range Interpretation Comments Prothromb Time International Ratio (test code = 6301-6) 1.22 Oral Anticoagulant Therapy INR Values:1. Low Intensity Therapy 1.5 - 2.02 . Moderate Intensity Therapy 2.0 - 3.03. High Intensity Therapy(1) 2.5 - 3. 54. High Intensity Therapy(2) 3.0 - 4.05. Panic Value INR > 5.0 [facility] CenterCHEST SINGLE (PORTABLE)2019-06-16 01:02:00 [facility] [address] [place] [address] Patient Name: ASHA ESCALANTE MR #: [id number] : 1960 Age/Sex: 59/F Req #: [id number] Adm Physician: BONY BRUNO MD Ordered by: BONY BRUNO MD Report #: [id number] Location: ICU Room/Bed: ICU 192-1 Procedure: [id number] DX /CHEST SINGLE (PORTABLE) Exam Date: 06/16/19 Exam Ti me: 0050 REPORT STATUS: Signed E XAMINATION: CHEST SINGLE (PORTABLE) INDICATION: ET-tube check COMPARISON: Chest x-ray 06/16/2019 FINDINGS: TUBES and CHRISTIN ES: Interval retraction of the ET tube, tip now within the mid intrathoracic trachea. Stable right IJ central venous catheter, tip in the superior cavoatri al junction. LUNGS: Improved aeration of the left lung and right upper lobe . Prominent central pulmonary vascular tree. Bilateral central lung haziness. PLEURA: No pleural effusion or pneumothorax. HEART AND MEDIASTINUM: Mild cardiomegaly. BONES AND SOFT TISSUES: No acute osseous lesion. S oft tissues are unremarkable. UPPER ABDOMEN: No free air under the diaphr agm. IMPRESSION: 1. Interval retraction of the ET tube, tip now wit hin the mid intrathoracic trachea. Improved aeration of the left lung and righ t upper lobe. 2. Mild cardiomegaly and pulmonary edema. Signed by: Johnny Muhammad DO on 06/16/2019 1:04 AM Dictated By: KENAN MUHAMMAD DO El ectronically Signed By: KENAN MUHAMMAD DO on 06/16/19103 Transcribed By: TANYA LANIER on 06/16/19103 COPY TO: BONY BRUNO MD CHEST XRAY LINE [id number] 00:41:00 [place] [address] Patient Name: ASHA ESCALANTE MR #: [id number] : 1960 Age/Sex: 59/F Req #: [id number] Adm Physician: BONY BRUNO MD Ordered by: MARTY MEJIA MD Report #: [id number] Location: ICU Room/Bed: ICU [facility] Procedure: [id number] DX/ CHEST XRAY LINE PLACEMENT Exam Date: Exam Time: REPORT STATUS: Signed EXAMINATION: CHEST XRAY LINE PLACEMENT INDICATION: Right IJ central venous catheter placement, position check COMPARISON: Chest x-ray 06/15/2019 FINDINGS: TUBES and LINES: New right IJ central venous catheter, tip at the cavoatrial junction. ET-tube tip remains in the right bronchus inter medius.. LUNGS: Hazy opacification of the left lung and right upper lobe. Central hazy opacities. Prominent pulmonary vasculature. PLEURA: No pleu ral effusion or pneumothorax. HEART AND MEDIASTINUM: Cardiac size is mildl y enlarged. BONES AND SOFT TISSUES: No acute osseous lesion. Soft tissue s are unremarkable. UPPER ABDOMEN: No free air under the diaphragm. IMPRESSION: Persistent right bronchus intermedius intubation with left jenny ng and right upper lobe atelectasis. Mild cardiomegaly and pulmonary edema. Signed by: Kenan Muhammad DO on 06/16/2019 12:44 AM Dictated By: CICI MUHAMMAD DO 004 4 Transcribed By: JAMAICA on 06/16/19 0044 COPY TO: MARTY MEJIA MD CHEST SINGLE (PORTABLE)2019-06-16 00:30:00 [place] [address] Patient Name: ASHA ESCALANTE MR #: [id number] : 1960 Age/Sex: 59/F Req #: [id number] Adm Physician: BONY BRUNO MD Ordered by: DESTINEY BARBOUR DO Report #: [id number] Location: ICU Room/Bed: ICU [facility] Procedure: [id number] DX/CHEST SINGLE (PORTABLE) Exam Date: 06/15/19 Exam Time: 2330 REPORT STATUS: Signed EXAMINATION: CHEST SINGLE (PORTABLE) INDICATION: ET tube placement, t ube check COMPARISON: Chest x-ray 06/15/2019 FINDINGS: TUBES and LINES: The ET tube tip is within the right mainstem bronchus inte rmedius. LUNGS: Complete opacification of the left hemithorax. A hazy o pacity in the right upper lobe. Hazy opacities in the right central lung. PLEURA: No pleural effusion or pneumothorax. HEART AND MEDIASTINUM: Card iac size is mildly enlarged. BONES AND SOFT TISSUES: No acute osseous lesion. Soft tissues are unremarkable. Degenerative changes in the spine. UPPER ABDOMEN: No free air under the diaphragm. IMPRESSION: 1. The ET tube tip is within the right bronchus intermedius, with left lung atelect asis and partial atelectasis of the right upper lobe. 2. Mild cardiomegaly an d pulmonary edema. Findings discussed with ICU nurse Ms. Stafford at 12: 35 AM on 06/16/[address] Muhammad via telephone. Signed by: Kenan de la fuente DO on 06/16/2019 12:38 AM Dictated By: KENAN Loaizai yelena Signed By: KENAN MUHAMMAD DO on 06/16/1937 Transcribed By: JAMAICA michaud 06/16/1937 COPY TO: DESTINEY BARBOUR DO NON-TUNNELLED CVC CATH [id number] 00:11:00 [place] [address] Patient Name: ASHA ESCALANTE MR #: [id number] : 1960 Age/Sex: 59/F Req #: [id number] Adm Physician: BONY BRUNO MD Ordered by: BONY BRUNO MD Report #: [id number] Location: ICU Room/Bed: ICU [facility] Procedure: [id number] IR /NON-TUNNELLED CVC CATH PLACMNT Exam Date: 06/19/19 Exam Time: 2029 REPORT STATUS: Sign ed Date and Time: 06/15/2019 Procedure: Ultrasound-guided right internal jugular temporary hemodialysis catheter placement concaving machine operator: Dr. Mejia Assistants: None Pre-operative diagnosis: End-stage renal diseas e, hyperkalemia Post-operative diagnosis: End-stage renal disease, hyperkalemi a Conscious Sedation: Intravenous propofol followed by continuous Versed in fusion initiated by emergency physician. Refer to nursing record. Jareth tional Medications: Lidocaine 1% for local anesthesia Fluoroscopy time: 0 Contrast used: 0 Estimated blood loss: Minimal Specimens: None Implan ts: 13 American, 15 cm triple-lumen temporary hemodialysis catheter Complication s: Cardiac arrest, see below discussion Condition at completion: Critical Di sposition: ICU DISCUSSION: Informed consent was obtained from the n ext of kin and documented in the medical record after discussion of risks and benefits. Patient was placed in the supine position on the fluoroscopic tab le. Preliminary sonographic evaluation confirmed patency of the right internal jugular vein, evidenced by compressibility. The right neck was then prepped a nd draped in the standard sterile fashion. 1% lidocaine was then infiltra magaly into the skin and subcutaneous tissues for local anesthesia. Under co ntinuous sonographic guidance, an 18-gauge needle was used to access the right internal jugular vein. A permanent sonographic image was stored in the medical record. A 0.0 3 5-in. wire was advanced to a depth of 10 cm with representat edin sonographic images stored. At this point, the patient was noted to be in r espiratory distress with absent peripheral pulse as ascertained by nursing sta ff. The needle and wire were removed; CODE BLUE was called and cardiopulmonary resuscitation was initiated immediately. Please refer to CODE BLUE note and n ursing record. Return of spontaneous circulation was achieved and the patient was intubated by the emergency center physician. Subsequently, the right ne ck was again prepped and draped in standard sterile fashion. An 18-gauge needl e was again used to access the right internal jugular vein with a permanent so nographic images stored in the medical record. A 0.0 3 5-in. wire was advanced to a depth of 25 cm with continuous cardiac rhythm monitoring. The needle was removed over the wire and the tract was dilated. Then a 13 American 15 cm tripl e-lumen hi flow central venous catheter was advanced over the wire to full dep th. The wire was then removed. Each lumen showed adequate bidirectional flow a nd was flushed with sterile saline. The catheter was secured to the skin with monofilament nylon suture and a sterile dressing was applied. FINDINGS: Patent right internal jugular vein. IMPRESSION: Ulti mately successful placement of a 13 American, 15 cm triple-lumen Trialysis maikel ter by a right internal jugular approach under sonographic guidance after card iac arrest/CODE BLUE with return of spontaneous circulation. Portable chest radiograph will be obtained to confirm line positioning prior to use. Si gned by: Dr. Marty Mejia M.D. on 06/16/2019 12:20 AM Dictated By: MARCELLO MEJIA MD 1 Trans cribed By: JAMAICA on 06/21/19921 COPY TO: BONY BRUNO MD IR [id number] 00:11:00 [place] [address] Patient Name: ASHA ESCALANTE MR #: [id number] : 1960 Age/Sex: 59/F Req #: [id number] Adm Physician: BONY BRUNO MD Ordered by: MARTY GREENWOOD MD Report #: [id number] Location: ICU Room/Bed: ICU [facility] Procedure: [id number] DX/IR CONSULT Exam Date: Exam Time: REPORT STATUS: Signed Date and Time: 06/15/2019 Procedure: Ultrasound-guided right internal jugular temporary hemodialysis c atheter placement concaving machine operator: Dr. Mejia Assistants: None Pr e-operative diagnosis: End-stage renal disease, hyperkalemia Post-operative di agnosis: End-stage renal disease, hyperkalemia Conscious Sedation: Intraven ous propofol followed by continuous Versed infusion initiated by emergency phy sician. Refer to nursing record. Additional Medications: Lidocaine 1% fo r local anesthesia Fluoroscopy time: 0 Contrast used: 0 Estimated b lood loss: Minimal Specimens: None Implants: 13 American, 15 cm triple-lumen t emporary hemodialysis catheter Complications: Cardiac arrest, see below discus derrick Condition at completion: Critical Disposition: ICU DISCUSSION: Informed consent was obtained from the next of kin and documented in the medical record after discussion of risks and benefits. Patient was placed i n the supine position on the fluoroscopic table. Preliminary sonographic evalu ation confirmed patency of the right internal jugular vein, evidenced by compr essibility. The right neck was then prepped and draped in the standard sterile fashion. 1% lidocaine was then infiltrated into the skin and subcutaneous tissues for local anesthesia. Under continuous sonographic guidance, an 1 8-gauge needle was used to access the right internal jugular vein. A permanent sonographic image was stored in the medical record. A 0.0 3 5-in. wire was ad vanced to a depth of 10 cm with manufacturing sales representative sonographic images stored. At t his point, the patient was noted to be in respiratory distress with absent per ipheral pulse as ascertained by nursing staff. The needle and wire were remove d; CODE BLUE was called and cardiopulmonary resuscitation was initiated immedi ately. Please refer to CODE BLUE note and nursing record. Return of spontaneou s circulation was achieved and the patient was intubated by the emergency cent er physician. Subsequently, the right neck was again prepped and draped in standard sterile fashion. An 18-gauge needle was again used to access the [facility] t internal jugular vein with a permanent sonographic images stored in the [facility] record. A 0.0 3 5-in. wire was advanced to a depth of 25 cm with continuou s cardiac rhythm monitoring. The needle was removed over the wire and the trac t was dilated. Then a 13 American 15 cm triple-lumen hi flow central venous cath eter was advanced over the wire to full depth. The wire was then removed. Each lumen showed adequate bidirectional flow and was flushed with sterile saline. The catheter was secured to the skin with monofilament nylon suture and a david rile dressing was applied. FINDINGS: Patent right internal jugular vein. IMPRESSION: Ultimately successful placement of a 13 American, 15 cm triple-lumen Trialysis catheter by a right internal jugular cortez frazier under sonographic guidance after cardiac arrest/CODE BLUE with return of spontaneous circulation. Portable chest radiograph will be obtained to con firm line positioning prior to use. Signed by: Dr. Marty Mejia M.D. on 06/16/2019 12:20 AM Dictated By: MARTY MEJIA MD 1 Transcribed By: JAMAICA on 06/21/19921 COPY TO: MARTY GREENWOOD MD US GUIDANCE FOR VASCULAR [id number] 00:11:00 [place] [address] Patient Name: ASHA ESCALANTE MR #: [id number] : 1960 Age/Sex: 59/F Req #: [id number] Adm Physician: BONY BRUNO MD Ordered by: MARTY GREENWOOD MD Report #: [id number] Location: ICU Room/Bed: ICU 192-1 Procedure: [id number] US/US GUIDANCE FOR VASCULAR ACCES Exam Date: 06/15/19 Exam Time: 2204 REPORT STATUS: Signed Date and Time: 06/15/2019 Procedure: Ultrasound-guided right internal ju gular temporary hemodialysis catheter placement concaving machine operator: Dr. Irish carvajal Assistants: None Pre-operative diagnosis: End-stage renal disease, hyperkalemia Post-operative diagnosis: End-stage renal disease, hyperkalemia Conscious Sedation: Intravenous propofol followed by continuous Versed infus ion initiated by emergency physician. Refer to nursing record. Additio nal Medications: Lidocaine 1% for local anesthesia Fluoroscopy time: 0 Contrast used: 0 Estimated blood loss: Minimal Specimens: None Implants: 13 American, 15 cm triple-lumen temporary hemodialysis catheter Complications: Cardiac arrest, see below discussion Condition at completion: Critical Dispo sition: ICU DISCUSSION: Informed consent was obtained from the next of kin and documented in the medical record after discussion of risks and sky efits. Patient was placed in the supine position on the fluoroscopic table. Preliminary sonographic evaluation confirmed patency of the right internal jugular vein, evidenced by compressibility. The right neck was then prepped and draped in the standard sterile fashion. 1% lidocaine was then infiltrated into the skin and subcutaneous tissues for local anesthesia. Under nubia nuous sonographic guidance, an 18-gauge needle was used to access the right in ternal jugular vein. A permanent sonographic image was stored in the medical r ecord. A 0.0 3 5-in. wire was advanced to a depth of 10 cm with manufacturing sales representative sonographic images stored. At this point, the patient was noted to be in resp iratory distress with absent peripheral pulse as ascertained by nursing staff. The needle and wire were removed; CODE BLUE was called and cardiopulmonary re suscitation was initiated immediately. Please refer to CODE BLUE note and nurs ing record. Return of spontaneous circulation was achieved and the patient was intubated by the emergency center physician. Subsequently, the right neck was again prepped and draped in standard sterile fashion. An 18-gauge needle w as again used to access the right internal jugular vein with a permanent sonog raphic images stored in the medical record. A 0.0 3 5-in. wire was advanced to a depth of 25 cm with continuous cardiac rhythm monitoring. The needle was re moved over the wire and the tract was dilated. Then a 13 American 15 cm triple-l umen hi flow central venous catheter was advanced over the wire to full depth. The wire was then removed. Each lumen showed adequate bidirectional flow and was flushed with sterile saline. The catheter was secured to the skin with mon ofilament nylon suture and a sterile dressing was applied. FI NDINGS: Patent right internal jugular vein. IMPRESSION: Ultimat kate successful placement of a 13 American, 15 cm triple-lumen Trialysis catheter by a right internal jugular approach under sonographic guidance after cardiac arrest/CODE BLUE with return of spontaneous circulation. Portable chest ra diograph will be obtained to confirm line positioning prior to use. Ana d by: Dr. Marty Mejia M.D. on 06/16/2019 12:20 AM Dictated By: MARTY MEJIA MD 1 Transcri bed By: JAMAICA on 06/21/19921 COPY TO: MARTY GREENWOOD MD Vitamin B12 Iswss2633-49-48 20:02:00* Test Item Value Reference Range Interpretation Comments Vitamin B12 Level (test code = 28570-1) > 2000 213-816 [facility] CenterThyroid Stimulating Hormone (TSH) 2019-06-15 17:35:00* Test Item Value Reference Range Interpretation Comments Thyroid Stimulating Hormone (TSH) (test code = 44986-6) 0.029 0.350-4.940 [facility] CenterInfluenza Virus Types A,B Antigen 2019-06-15 16:11:00* Test Item Value Reference Range Interpretation Comments Influenza Virus Types A,B Antigen (test code = 18666-5) NEGATIVE NEGATIVE [facility] CenterActivated Partial Thromboplast Time 2019-06-15 15:51:00* Test Item Value Reference Range Interpretation Comments Activated Partial Thromboplast Time (test code = 70751-7) 32.6 23.8-35.5 [facility]2019-06-15 15:50:00 [facility] [address] [place] [address] Patient Name: ASHA ESCALANTE MR #: [id number] : 1960 Age/Sex: 59/F Req #: [id number] Adm Physician: Ordered by: DELFINO ALEJANDRA LITHOGRAPHIC RETOUCHER APPRENTICE Report #: [id number] Location: ER Room/Bed: Procedure: [id number] DX/ CHEST SINGLE (PORTABLE) Exam Date: 06/15/19 Exam Jorden e: 1515 REPORT STATUS: Signed EX AMINATION: CHEST SINGLE (PORTABLE) INDICATION: ERMD ORDER [id number] 1515 Y COMPARISON: 12/26/2018 FINDINGS: AP v iew TUBES and LINES: None. LUNGS: Low lung volumes. Bilateral pu lmonary edema. Bibasilar atelectasis. PLEURA: No pleural effusion or pne umothorax. HEART AND MEDIASTINUM: Mild enlargement of the cardiac silhouet te. BONES AND SOFT TISSUES: No acute osseous lesion. Soft tissues are unremarkable. UPPER ABDOMEN: No free air under the diaphragm. IMP RESSION: Interval development of diffuse bilateral pulmonary edema. S igned by: Dr. Tessa Macias M.D. on 06/15/2019 3:51 PM Dictate d By: TESSA MACIAS MD 50 Transcribed By: JAMAICA on 06/15/191550 COPY TO: DELFINO ALEJANDRA LITHOGRAPHIC RETOUCHER APPRENTICE HIP RIGHT 2-3 VW (+/- PELVIS)2018-12-26 23:40:00 [place] [address] Patient Name: ASHA ESCALANTE MR #: [id number] : 1960 Age/Sex: 58/F Req #: [id number] Adm Physician: Ordered by: GRADY GUARDADO MD Report #: [id number] Location: ER Room/Bed: Procedure: [id number] 1 DX/HIP RIGHT 2-3 VW (+/- PELVIS) Exam Date: Exam Time: REPORT STATUS: Signed Exam: right hip 2 views History: pain Comparison: None. Finding s: No fracture or malalignment. Joint spaces preserved. No abnormal soft tissu e calcification or soft tissue defect. Impression: No acute osseous abnormality Signed by: Dr. Manuelito Farnsworth M.D. on 12/26/2018 11:42 PM Dictated By: MANUELITO FARNSWORTH MD Transcribed By: JAMAICA on 12/26/182 COPY TO: GRADY GUARDADO MD CHEST 2 [id number] 23:36:00 [place] [id number] [place] [address] Patient Name: ASHA ESCALANTE MR #: [id number] : 1960 Age/Sex: 58/F Req #: [id number] Adm Physician: Ordered by: GRADY GUARDADO MD Report #: [id number] Location: ER Room/Bed: Procedure: [id number] 0 DX/CHEST 2 VIEWS Exam Date: 12/26/18 Exam Time: 23 15 REPORT STATUS: Signed EXAM INATION: PA and lateral views of the chest. COMPARISON: Nov 05 2011 C LINICAL HISTORY: chest pain DISCUSSION: Lines/tubes: None. Lungs: The lungs are well inflated and clear. No pneumonia or pulmonary edema. Pleura: No pleural effusion or pneumothorax. Heart and mediastinum: The cardiomediastinal silhouette is normal. Bones and soft tissues: No ac yinka bony abnormalities. IMPRESSION: No acute cardiopulmonary abn ormalities. Signed by: Dr. Manuelito Farnsworth M.D. on 12/26/2018 11 :40 PM Dictated By: MANUELITO FARNSWORTH MD 39 Transcribed By: JAMAICA on 12/26/18 2340 C OPY TO: GRADY GUARDADO MD CT FOOT RIGHT W [place] [address] Patient Name: ASHA ESCALANTE MR #: [id number] : 1960 Age/Sex: 57/F Req #: [id number] Adm Physician: Ordered by: VALENTINA LAZARO MD Report #: [id number] Location: ER Room/Bed: Procedure: [id number] CT/CT FOOT RIGHT W Exam Federico e: 07/27/17 Exam Time: 1125 REPORT STATUS: Sign ed CT scan of the RIGHT FOOT, WITH injected contrast. TECHNIQUE: Roger dang departmental protocols were used. Post-contrast images were obtained aft er the intravenous injection of 100 cc of Isovue-370. Sagittal and coronal r eformatted images were obtained. HISTORY: Hurting, query abscess COM PARISON: None available FINDINGS: Bones: No acute displaced fracture. Moderate plantar and calcaneal enthesophytes. Os trigonum. Joints: Min imal to mild scattered degenerative changes. Soft Tissues: Prominent soft tissue edema of the foot. No drainable fluid collection. IMPRESSION: 1. No soft tissue abscess. 2. Diffuse soft tissue edema. Signed by: Dr. Alcides Mendenhall D.O., M.M.M. on 07/27/2017 3:26 PM Dictated By: ALCIDES RIVERA DO 1526 Transcribed By : [place] on 07/27/17 1526 COPY TO: VALENTINA LAZARO MD FOOT RIGHT COMPLETE [place] [address] Patient Name: ASHA ESCALANTE MR #: [id number] : 1960 Age/Sex: 57/F Req #: [id number] Adm Physician: Ordered by: VALENTINA LAZARO MD Report #: [id number] Location: ER Room/Bed: Procedure: [id number] DX/FOOT RIGHT COMPLETE Exam Date: 07/27/17 Exam Time: 0845 REPORT STATUS: Signed PROCEDURE: X-RAY RIGHT FOOT, COMPLETE COMPARISON: None. INDICATIONS: RIGHT FOOT PAIN FINDINGS: There are no fractures, di slocations, lytic or blastic lesions. No bony erosions. Spurring of the calca neus at the insertion of the plantar fascia is noted. The bones are well-mine ralized. There is soft tissue swelling. CONCLUSION: No acute vianney ny abnormality. Lisbeth Ortiz D.O. Dictated by: Lisbeth Ortiz D.O. on 07/27/2017 at 10:16 Electronically approved by: Lisbeth Ortiz D.O. on 07/27/2017 at 10:16 Dictated By: LISBETH ORTIZ DO Electronic ally Signed By: LISBETH ORTIZ DO on 07/27/17 1016 Transcribed By: KINA on 07/04 11/17 1016 COPY TO: VALENTINA LAZARO MD
--- NOTE | 2019-11-21 13:57 | Emergency Department Note ---
History of Present Illnes History of Present Illness Chief Complaint: Chest Pain History of Present Illness This is a 59 year old female arrived with complaints of SOB- pt states she was on dialysis but told she no longer needs it, pt states SOB progressively worsening over the past week. c/o cp sob cough x 5 days o2 sat 84% w/nc Historian: Patient Arrival Mode: Car Onset (how long ago): day(s) (5 days) Radiation: non-radiation, back, neck, extremity, abdomen, periumbilical, flank, proximal, distal, other Severity: severe Onset quality: sudden Duration (how long): day(s) (5 days) Progression: worsening Context: recent illness, recent surgery, recent immobilization, recent travel, trauma/injury, new medications, hx of DVT/PE, non-compliance w/ medications, other Relieving factors: none Exacerbating factors: none Treatments prior to arrival: none Past Medical/Family History Physician Review I have reviewed the patient's past medical and family history. Any updates have been documented here. Past Medical History Recent Fever: No Clinical Suspicion of Infectio: No New/Unexplained Change in Ment: No Past Medical History: Hypertension, Diabetes, CHF, Hypothyroidism, Hemody alisis, Depression, GERD Other Medical History: GERD NEUROPATHY SLEEP APNEA Past Surgical History: Cholecysctectomy, Other Surgery: X2 Social History Smoking Cessation: Never Smoker Alcohol Use: None Any Illegal Drug Use: No TB Exposure/Symptoms: No Family History Family history of heart diseas: No Other Last Tetanus: UTD Any Pre-Existing Lines (PICC,: No Review of Systems Review of Systems Constitutional: weakness EENTM: no symptoms Cardiovascular: chest pain Respiratory: dyspnea, dyspnea on exertion Gastrointestinal: no symptoms Genitourinary: no symptoms Musculoskeletal: no symptoms Neurological: no symptoms Psychological: no symptoms Endocrine: no symptoms Hematological/Lymphatic: no symptoms Review of other systems All other systems reviewed and negative. Physical Exam Related Data Allergies: Coded Allergies: promethazine HCl (Verified Allergy, Intermediate, HALLUCINATIONS, 02/13/11) latex (Verified Allergy, Unknown, 12/26/18) Triage Vital Signs Vital Signs Date Time Temp Pulse Resp B/P (MAP) Pulse Ox O2 Delivery O2 Flow Rate FiO2 11/21/19 13:39 Vital signs reviewed: Yes Physical Exam CONSTITUTIONAL Constitutional: obese, distressed, ill appearing HENT HENT: normocephalic, atraumatic, oropharynx clear/moist, nose normal HENT L/R: left ext ear normal, right ext ear normal EYES Eyes: PERRL, conjunctivae normal NECK PULMONARY Pulmonary: respiratory distress (marked tachypnea ) CARDIOVASCULAR Cardiovascular: heart sounds normal, intact distal pulses, capillary refill normal GASTROINTESTINAL Abdominal: soft, nontender, bowel sounds normal GENITOURINARY Genitourinary: exam deferred SKIN Skin: warm, dry MUSCULOSKELETAL Musculoskeletal: ROM normal NEUROLOGICAL Neurological: alert, oriented x 3, no gross motor or sensory deficits PSYCHOLOGICAL Psychological: mood/affect normal, judgement normal Results Laboratory Laboratory Laboratory Tests Test 11/21/19 14:40 11/21/19 14:13 11/21/19 13:57 11/21/19 13:50 Urine Color Yellow (YELLOW) Urine Clarity Clear (CLEAR) Urine pH 7 (5 - 7) Urine Specific Floyd 1.020 (1.010-1.025) Urine Protein 2+ (NEGATIVE) Urine Glucose (UA) Negative (NEGATIVE) Urine Ketones Negative (NEGATIVE) Urine Blood Small (NEGATIVE) Urine Nitrite Negative (NEGATIVE) Urine Bilirubin Negative (NEGATIVE) Urine Urobilinogen 0.2 mg/dL (0.2 - 1) Urine Leukocyte Esterase Negative (NEGATIVE) Urine RBC 6-10 /HPF (0-5) Urine WBC 0-5 /HPF (0-5) Urine Epithelial Cells Few /LPF (NONE) Urine Bacteria Moderate /HPF (NONE) Arterial Blood pH 7.49 (7.35-7.45) Arterial Blood Partial Pressure CO2 43 mmHg (35-45) Arterial Blood Partial Pressure O2 mmHg (80-105) Arterial Blood HCO3 33 mmol/L (22-26) Arterial Blood Oxygen Saturation % (95-98) Arterial Blood Base Excess 9.0 mmol/L (-2 - 3) FiO2 % White Blood Count 6.77 x10e3/uL (4.8-10.8) Red Blood Count 3.00 x10e6/uL (3.6-5.1) Hemoglobin 9.1 g/dL (12.0-16.0) Hematocrit 30.4 % (34.2-44.1) Mean Corpuscular Volume 101.3 fL (81-99) Mean Corpuscular Hemoglobin 30.3 pg (28-32) Mean Corpuscular Hemoglobin Concent 29.9 g/dL (31-35) Red Cell Distribution Width 15.4 % (11.7-14.4) Platelet Count 197 x10e3/uL (140-360) Neutrophils (%) (Auto) 78.0 % (38.7-80.0) Lymphocytes (%) (Auto) 15.1 % (18.0-39.1) Monocytes (%) (Auto) 4.4 % (4.4-11.3) Eosinophils (%) (Auto) 1.9 % (0.0-6.0) Basophils (%) (Auto) 0.3 % (0.0-1.0) Neutrophils # (Auto) 5.3 (2.1-6.9) Lymphocytes # (Auto) 1.0 (1.0-3.2) Monocytes # (Auto) 0.3 (0.2-0.8) Eosinophils # (Auto) 0.1 (0.0-0.4) Basophils # (Auto) 0.0 (0.0-0.1) Absolute Immature Granulocyte (auto 0.02 x10e3/uL (0-0.1) Prothrombin Time 13.4 seconds (11.9-14.5) Prothromb Time International Ratio 0.96 Activated Partial Thromboplast Time 29.3 seconds (23.8-35.5) Sodium Level 141 mmol/L (136-145) Potassium Level 4.1 mmol/L (3.5-5.1) Chloride Level 101 mmol/L (98-107) Carbon Dioxide Level 30 mmol/L (22-29) Anion Gap 14.1 mmol/L (8-16) Blood Urea Nitrogen 38 mg/dL (7-26) Creatinine 1.42 mg/dL (0.57-1.11) Estimat Glomerular Filtration Rate 38 ML/MIN (60-) BUN/Creatinine Ratio 27 (6-25) Glucose Level 161 mg/dL (74-118) Calcium Level 9.3 mg/dL (8.4-10.2) Total Bilirubin 0.7 mg/dL (0.2-1.2) Aspartate Amino Transf (AST/SGOT) 21 IU/L (5-34) Alanine Aminotransferase (ALT/SGPT) 14 IU/L (0-55) Alkaline Phosphatase 291 IU/L (40-150) Creatine Kinase 113 IU/L (29-168) Creatine Kinase MB 1.30 ng/mL (0-5.0) Troponin I < 0.001 ng/mL (0-0.300) Total Protein 7.6 g/dL (6.5-8.1) Albumin 3.1 g/dL (3.5-5.0) Globulin 4.5 g/dL (2.3-3.5) Albumin/Globulin Ratio 0.7 (0.8-2.0) Thyroid Stimulating Hormone (TSH) 2.558 uIU/mL (0.350-4.940) Test 11/21/19 13:00 Lactic Acid Level 1.0 mmol/L (0.5-2.0) B-Type Natriuretic Peptide 133.2 pg/mL (0-100) Lab results reviewed: Yes Laboratory comments ph 7.489 co2 42.9 po2 167 hco3 32.6 o2 sat 100% Imaging Imaging results reviewed: Yes Impressions Procedure: [id number] DX/CHEST SINGLE (PORTABLE) Exam Date: 11/21/19 Exam Time: 1355 REPORT STATUS: Signed X-ray chest frontal view Comparison: 09/04/2019 History: Chest pain shortness of breath Findings: An underpenetrated film likely confounded by the patient's large body habitus. Difficult to interpret. Central airways unremarkable. Cardiomegaly. Possible widening of the vascular pedicle. No pleural effusion. No pneumothorax. Likely interstitial lung edema. No other focal lung consolidation. Visualized skeleton is unremarkable. Upper abdomen cannot be evaluated. In the interim right IJ route dual lumen catheter, likely a tunneled dialysis catheter has been removed. Impression: Technically limited exam. Possible interstitial pulmonary edema. Signed by: Cedric Patiño MD on 11/21/2019 2:19 PM Dictated By: CEDRIC PATIÑO MD 1414 Transcribed By: J[place] on 11/21/19 1419 Procedures 12 Lead ECG Interpretation Recruiting Scheduler: Interpreted by ED physician Date: November 21, 2019 Time: 14:15 Prior [employer]LECT[employer] tracings: reviewed Rhythm: sinus rhythm Rate: normal BPM: 75 QRS axis: normal ST segments normal: Yes T waves normal: Yes Clinical Impression: normal ECG ABG Interpretation Interpretation: normal Pulse Oximetry Pulse ox probe location: digit - finger Initial readin Actions taking: placed on BiPAP Additional comments 80% on 5L 02 Critical Care Time Total Critical Care Time (min): 65 Critcal care necessary due to: respiratory failure Subsequent provider I assumed direction of critical care for this patient from another provider of my specialty. Comments Pt seen immediately on arrival, placed on BIPAP Lasix Given Assessment & Plan Reassessment Reassessment time: 13:55 Reassessment 59y f presented to ed c/o cp sob dyspnea w/ exertion cough sx x 5 days - o2 sat 84% w/ nc pt moved to - lab ekg cxr ordered 1515: Pt re-evaluated, respirations improved: Pt requested ibanez catheter placem ent in the ED b/c of increased urine output No concerns for sepsis, pt has not source of infection- BIPAP was initiated for acute respiratory distress secondary to pulmonary edema. Assessment & Plan Final Impression: (1) Congestive heart failure (CHF) (2) Pulmonary edema (3) Acute respiratory distress Assessment & Plan cbc, cmp, cardiac markers EKG CXR Admission Depart Disposition: ADMITTED Last Vital Signs Date Time Temp Pulse Resp B/P (MAP) Pulse Ox O2 Delivery O2 Flow Rate FiO2 11/21/19 13:39 Home Meds Reported Medications Clindamycin Hcl (CLINDAMYCIN HCL) 150 Mg Capsule, 300 MG PO Q8H, #40 08/01/17 Bupropion Hcl (BUPROPION XL) 150 Mg Tab.er.24h, 150 MG PO DAILY 07/27/17 Ferrous Sulfate (FERROUS SULFATE) 325 Mg Tablet, 325 MG PO DAILY 07/27/17 Losartan Potassium (LOSARTAN POTASSIUM) 25 Mg Tablet, 25 MG PO DAILY 07/27/17 Simvastatin (SIMVASTATIN) 20 Mg Tablet, 20 MG PO 2100, EA 07/27/17 Pregabalin (LYRICA) 50 Mg Cap, 100 MG PO BID, #30 TAB 07/27/17 Omeprazole (OMEPRAZOLE) 40 Mg Capsule.dr, 20 MG PEG DAILY 07/27/17 Insulin Regular, Human (NOVOLIN R) 100 Unit/1 Ml Vial, UNITS SC TID 07/27/17 [Novolin 70/30] No Conflict Check, 100 UNITS SQ BID 04/20/17 Aspirin (ASPIRIN) 81 Mg Tab.chew, 81 MG PO DAILY 04/20/17 Cyanocobalamin (VITAMIN B-12) 1,000 Mcg Tab, 5000 MCG PO DAILY, #30 TAB 04/20/17 Loratadine (LORATADINE) 10 Mg Tablet, 10 MG PO DAILY, #30 TAB 04/20/17 Levothyroxine Sodium (LEVOTHYROXINE SODIUM) 50 Mcg Tablet, 25 MCG PO DAILY, #30 TAB 04/20/17 Bumetanide (BUMETANIDE) 1 Mg Tablet, 2 MG PO BID, #30 TAB 04/20/17 Carvedilol (CARVEDILOL) 12.5 Mg Tablet, 25 MG PO BID, #60 TAB 04/14/14 Metformin Hcl (GLUCOPHAGE XR) 500 Mg Tab.er.24h, 500 MG PO BID 03/10/13 Tramadol Hcl (ULTRAM) 50 Mg Tablet, 50 MG PO RQ6H 03/10/13 Meloxicam (MELOXICAM) 15 Mg Tablet, 15 MG PO RDAILY 03/10/13 Fluoxetine Hcl (FLUOXETINE HCL) 20 Mg Capsule, 20 MG PO DAILY 03/10/13 Cyclobenzaprine Hcl (FLEXERIL) 10 Mg Tablet, 10 MG PO TID 03/10/13 Krill Oil/[place]ibal-3/Dha/Epa ([employer] OMEGA-3 KRILL OIL 300 SFGL) 1 Each Capsule, 300 MG PO RDAILY 03/10/13 Multivitamin (MULTIVITAMINS) 1 Each Capsule, 1 EA PO RDAILY 03/10/13 DESTINEY BARBOUR, November 21, 2019 13:57
[2019-11-21] MEDS ORDERED: FUROSEMIDE INJ 10 MG/ML 2 ML VIAL ONE (14:02)
[2019-11-21] MEDS ORDERED: FUROSEMIDE INJ 10 MG/ML 4 ML VIAL ONE (14:02)
[2019-11-21 14:16] LABS: ABG PCO2 43 mmHg (35-45); ABG PH 7.49 (7.35-7.45)
[2019-11-21 14:17] LABS: ABG HCO3 33 mmol/L (22-26)
--- NOTE | 2019-11-21 14:22 | Diagnostic Imaging Report ---
X-ray chest frontal view Comparison: 09/04/2019 History: Chest pain shortness of breath Findings: An underpenetrated film likely confounded by the patient's large body habitus. Difficult to interpret. Central airways unremarkable. Cardiomegaly. Possible widening of the vascular pedicle. No pleural effusion. No pneumothorax. Likely interstitial lung edema. No other focal lung consolidation. Visualized skeleton is unremarkable. Upper abdomen cannot be evaluated. In the interim right IJ route dual lumen catheter, likely a tunneled dialysis catheter has been removed. Impression: Technically limited exam. Possible interstitial pulmonary edema. Signed by: Cedric Johnson MD on 11/21/2019 2:19 PM
[2019-11-21] MEDS ORDERED: FUROSEMIDE INJ 10 MG/ML 4 ML VIAL IV ONE (14:30)
[2019-11-21 14:32] LABS: BASOPHILS % 0.3 % (0.0-1.0); EOSINOPHILS # (AUTO) 0.1 (0.0-0.4); EOSINOPHILS % 1.9 % (0.0-6.0); HEMATOCRIT 30.4 % (34.2-44.1); HEMOGLOBIN 9.1 g/dL (12.0-16.0); LYMPHOCYTES % 15.1 % (18.0-39.1); MEAN CORPUSCULAR HEMOGLOBIN 30.3 pg (28-32); MEAN CORPUSCULAR HGB CONC 29.9 g/dL (31-35); MEAN CORPUSCULAR VOLUME 101.3 fL (81-99); MONOCYTES # (AUTO) 0.3 (0.2-0.8); MONOCYTES % 4.4 % (4.4-11.3); NEUTROPHILS # (AUTO) 5.3 (2.1-6.9); PLATELET COUNT 197 x10e3/uL (140-360); RED CELL DISTRIBUTION WIDTH 15.4 % (11.7-14.4)
[2019-11-21 14:57] LABS: INR 0.96; PROTHROMBIN TIME 13.4 seconds (11.9-14.5)
[2019-11-21 14:58] LABS: PARTIAL THROMBOPLASTIN TIME 29.3 seconds (23.8-35.5)
[2019-11-21 15:05] LABS: ALANINE AMINOTRANSFERASE 14 IU/L (0-55); ALBUMIN 3.1 g/dL (3.5-5.0); ALBUMIN/GLOBULIN RATIO 0.7 (0.8-2.0); ALKALINE PHOSPHATASE 291 IU/L (40-150); ANION GAP 14.1 mmol/L (8-16); BLOOD UREA NITROGEN 38 mg/dL (7-26); BUN/CREATININE RATIO 27 (6-25); CALCIUM 9.3 mg/dL (8.4-10.2); CARBON DIOXIDE 30 mmol/L (22-29); CHLORIDE 101 mmol/L (98-107); CREATINE KINASE 113 IU/L (29-168); CREATININE, SERUM 1.42 mg/dL (0.57-1.11); EST GLOMERULAR FILTRATION RATE 38 ML/MIN (60-); GLUCOSE 161 mg/dL (74-118); POTASSIUM 4.1 mmol/L (3.5-5.1); SODIUM 141 mmol/L (136-145)
[2019-11-21 15:07] LABS: B-TYPE NATRIURETIC PEPTIDE2 133.2 pg/mL (0-100)
[2019-11-21 15:22] LABS: BILIRUBIN,URINE NEGATIVE (NEGATIVE); CLARITY,URINE CLEAR (CLEAR); COLOR,URINE YELLOW (YELLOW); KETONES,URINE NEGATIVE (NEGATIVE); LEUKOCYTE ESTERASE ,URINE NEGATIVE (NEGATIVE); NITRITE,URINE NEGATIVE (NEGATIVE); PROTEIN,URINE DIPSTICK 2+ (NEGATIVE); URINE UROBILINOGEN 0.2 mg/dL (0.2 - 1)
[2019-11-21 15:31] LABS: BACTERIA,URINE MODERATE /HPF; EPITHELIAL CELLS,URINE FEW /LPF; WBC,URINE (MAN) 0-5 /HPF (0-5)
[2019-11-21 15:36] LABS: THYROID STIMULATING HORMONE 2.558 uIU/mL (0.350-4.940)
--- OUTSIDE RECORDS SUMMARY | 2019-11-21 16:31 | XMS REPORT | Continuity of Care Document ---
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 SCIENTIST-Needs to be established w/mechanical designer-hx of Hyperlipidemia,High BP,CHF,CP [id number] 11/09/2015 11/09/2015 Roger Duran MD, PA 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 SCIENTIST-Needs to be established w/mechanical designer-hx of Hyperlipidemia,High BP,CHF,CP [id number] 11/09/2015 11/09/2015 Roger Duran MD, PA 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-Needs to be established w/mechanical designer-hx of Hyperlipidemia,High BP,CHF,CP [id number] 11/09/2015 11/09/2015 Roger Druan MD, PA 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 SCIENTIST-Needs to be established w/mechanical designer-hx of Hyperlipidemia,High BP,CHF,CP [id number] 11/09/2015 11/09/2015 Roger Duran MD, LELIA Maria [id number] 12/01/2015 12/01/2015 Roger Duran MD, LELIA Maria [id number] 12/01/2015 12/01/2015 Roger Duran MD, LELIA Maria [id number] 12/01/2015 12/01/2015 Roger Duran MD, PA F/U TESTING [id number] 12/01/19 16 12/01/2015 Roger Duran MD, PA F/U TESTING [id number] 12/01/19 16 12/01/2015 Roger Duran MD, PA F/U TESTING [id number] 12/01/19 16 12/01/2015 Roger Duran MD, PA f/u 3 mon [id number] 03/08/20 16 03/08/2016 Roger Duran Procedures No [...]
--- OUTSIDE RECORDS SUMMARY | 2019-11-21 16:31 | XMS REPORT | Clinical Summary ---
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
--- OUTSIDE RECORDS SUMMARY | 2019-11-21 16:31 | XMS REPORT ---
Author Author [facility] t Organization [facility] t Address 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 Name Role Phone Susan NGUYEN MD PCP Pradeep BARBOUR Attphys Unavailable SHAYAN STEIN Attphys Unavailable Pradeep BRUNO Attphys Unavailable Mary GUARDADO Attphys Unavailable Angus LAZARO Attphys Unavailable Pradeep BRUNO Admphys Unavailable Payers Payer Name Policy Type Policy Number Effective Date Expiration Date Pradeep ochoa [employer] [id number] 2018 00:00:00 [facility] [id number] 2018 00:00[facility]00 [facility] [id number] 2018 00:00:00 [facility] Care Improvement Plus [id number] 2017 00:00:00 [facility] Problems Condition Name Condition Details Condition Category Status Onset Date Resolution Date Last Treatment Date Treating Clinician Comments Source Heart failure with preserved left ventricular function (HFpEF) Heart failure with preserved left ventricular function (HFpEF) Disease Active 2014-08-25 00:00:00 [facility] Respiratory failure Respiratory failure Disease Active 2014-06-04 00:00 :00 [facility] Respiratory failure with hypercapnia Respiratory failure wit h hypercapnia Disease Active 2014-06-04 00:00:00 [facility] Congestive heart failure Congestive heart failure (CHF) Problem Active 2014-04-13 00:00:00 [facility] On home O2 On home O2 Disease Active 2014-01-01 00:00:00 [facility] CHF exacerbation CHF exacerbation Disease Active 2013-12-30 00:00:00 [facility] MDD (major depressive disorder) MDD (major depressive disorder) Dis ease Active 2013-12-09 00:00:00 [facility] ealt Obesity hypoventilation syndrome Obesity hypoventilation syndrome Active Diagnosis 02/01/2018 Ahmed Omeromed Diagnosis Active 2018-02-01 02:48:35 Ahmed Omeromed Precordial [...] Ahmed Diagnosis Active 2018-02-01 02: 48:35 Ahkatelyn Jamlimed Abnormal electrocardiogram Abn ormal electrocardiogram Active Diagnosis 02/01/2018 Ahmed Ahmed Diagnosis Active 2018-02-01 02:48:35 Ahmed Ahmed Hypertensive heart disease with heart failure Hypertensive heart disease with heart failure Active Diagnosis 02/01/2018 Ahmed Ahmed Diagnosis Active 2018-02-01 02:48:35 A ed Ahmed Shortness of breath Shor tness of breath Active Diagnosis 05/12/2016 med med Diagnosis Active 2016-05-12 05:03:43 Ahmed Omeromed 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 Atheroscler of [place] artery of both legs with intermit claudication [...] Duran Pulmonary edema Pulmonary edema Disease Active [facility] Diastolic heart failure Diastolic heart failure Disease Active [facility] Morbid obesity Morbid obesity Disease Active [facility] DM (diabetes mellitus) DM (diabetes mellitus) Disease Active [facility] HTN (hypertension) HTN (hypertension) Disease Active [facility] Hypokalemia Hypokalemia Disease Active [facility] Anemia Anemia Disease Active [facility]th Obesity hypoventilation syndrome Obesity hypoventilation syndrom e Disease Active [facility] Depression Depression Disease Active [facility] Hypothyroid Hypothyroid Disease Active [facility] Allergies, Adverse Reactions, Alerts Allergy Name Allergy Type Status Severity Reaction(s) Onset Date Inacti ve Date Treating Clinician Comments Source Latex Allergy to Substance Active Unknown 2018-12-26 00:00:00 [facility] N.K.OkA. N.K.Bhaskar.A. Active Info Not Available 2017-11-07 00:00:00 [facility] Latex, Natural Rubber Propensity to adverse reactions to drug Active 2017-01-30 00:00:00 ALLERGIC LATEX GLOVES [facility] Promethazine Propensity to adverse reactions to drug Active Itching, Swelling 2013-07-09 00:00:00 [facility] promethazine HCl Allergy to Substance Active Moderate HALLUCINA TIONS 2011-02-13 00:00:00 [facility] Family History Family Member Diagnosis Comments Start Date Stop Date Source Natural father Arthritis [facility] Natural father Cataracts [facility] Natural father Diabetes [facility] Natural father Hypertension [facility] Natural mother Arthritis [facility] Natural mother Diabetes [facility] Natural mother Hypertension [facility] Natural mother Hypothyroid [facility] Natural sister Cataracts [facility] Natural sister Hypertension [facility] Natural sister Diabetes [facility] Social History Social Habit Start Date Stop Date Quantity Comments Source Sex Assigned At [facility] Alcohol intake 2018-12-05 00:00:00 2018-12-05 00:00:00 [facility] History SDOH Food Worry 2016-12-02 00:00:00 2016-12-02 00:00:00 1 [facility] SDOH Food Scarcity 2016-12-02 00:00:00 2016-12-02 00:00:00 1 [facility] Smokin2016-03-08 00:00:00 2016-03-08 00:00:00 [facility] History of tobacco use 2003-07-03 00:00:00 Current smoker [facility] Smoking Status Start Date Stop Date Source Former smoker 2018-12-05 00:00:00 2018-12-05 00:00:00 [facility] Medications Ordered Medication Name Filled Medication Name Start Date Stop Da te Current Medication? Ordering Clinician Indication Dosage Frequency Signature (SIG) Comments Components Source cyclobenzaprine (FLEXERIL) 10 mg tablet 2018-06-20 00:00:00 Yes Chronic midline low back pain without sciatica T SANJEEV ONE TABLET BY MOUTH THREE TIMES DAILY NEEDED FOR MUSCLE SPASM [facility] Pregabalin 2018-02-01 02:48:35 Yes Ahmed Ahmed 1 [...] TAKE ONE TABLET BY MOUTH ONCE DAILY [facility] levothyroxine (SYNTHROID) 50 mcg tablet 2017-12-14 00:00:00 Yes Hypothyroidism, unspecified type TAKE ONE TABLET BY MOUTH ONCE DAILY [facility] Krill Oil 2017-08-29 04:03:51 Yes Ahmed Ahmed not defined Ahmed Ahmed insulin 70/30 NPH - REGULAR (NOVOLIN 70/30) 100 unit/mL inje ction 2017-06-02 15:01:22 Yes Diabetes mellitus type 2, insulin depend ent 100U Q.5D Inject 100 Units under the skin 2 times daily (before meals). [facility] Metformin HCl 2017-05-16 03:53:29 Yes Ahmed Ahmed 1 tablet with meals Ahmed Ahmed traMADol (ULTRAM) 50 mg tablet 2017-05-02 00:00:00 Yes Chronic midline low back pain without sciatica TAKE ONE TABL ET BY MOUTH EVERY 6 HOURS NEEDED FOR PAIN. [facility] loratadine (CLARITIN) 10 mg tablet 2017-05-02 00:00:00 Yes Allergic rhinitis, unspecified chronicity, unspecified seasonality, unspecified trigger 10mg QD Take 1 tablet by mouth daily. [facility] omeprazole (PRILOSEC) 20 mg delayed release capsule 2016-07 00:00:00 Yes Gastroesophageal reflux disease without esophagitis TAKE ONE CAPSULE BY MOUTH ONCE DAILY. [facility] metFORMIN (GLUCOPHAGE) 1,000 mg tablet 2017-05-02 00:00:00 Yes Diabetes mellitus type 2, insulin dependent 1000mg Take 1 tablet by mouth 2 times daily (with meals). [facility] simvastatin (ZOCOR) 20 mg tablet 2017-05-02 00:00:00 Yes Other hyperlipidemia 20mg Take 1 tablet by mouth at bedtime nightly. [facility] Meloxicam 15 mg tablet 2017-05-02 00:00:00 Yes Chronic midline low back pain without sciatica 15mg QD Take 1 tablet by mouth daily. [facility] buPROPion (WELLBUTRIN XL) 150 mg extended release tablet 2017-05-02 00:00:00 Yes Depression with anxiety T sanejev 1 tablet once a day for 4 days then take 2 tablet once a day. [facility] bumetanide (BUMEX) 2 mg tablet 2017-02-17 00:00:00 Yes Chronic diastolic heart failure 2mg Q.5D Take 1 tablet by mouth 2 times daily. [facility] pregabalin (LYRICA) 100 mg capsule 2017-02-17 00:00:00 Yes Chronic midline low back pain without sciatica TAKE ONE CAPSULE BY MOUTH T WICE DAILY. [facility] mupirocin (BACTROBAN) 2 % ointment 2017-01-30 11:44:38 Yes Q.5D Apply to affected area 2 times daily. [facility] eaadonay KRILL OIL OR 2017-01-30 11:44:38 Yes QD Take b y mouth daily. [facility] Vitamin B Comp & C No.4 (SUPER B COMPLEX + C) 150 mg Tab 2017-01-30 11:44:38 Yes QD Take by mouth daily. [facility] Cholecalciferol, Vitamin D3, 5,000 unit Tab 2017-01-30 11:44:38 Yes 1{tbl} QD Take 1 tablet by mouth daily. [facility] MULTIVIT &MINERALS/FERROUS FUM (MULTI VITAMIN OR) 2016-12-02 11:10:05 Yes Take by mouth. [facility] carvedilol (COREG) 12.5 mg tablet 2016-12-02 00:00:00 Yes Chronic diastolic heart failure 12.5mg Take 1 tablet by mouth 2 times daily (with meals). [facility] INSULIN SYRINGE 0.5mL 30GX5/16" (ULTRA COMFORT) syringe-need le 2016-12-02 00:00:00 Yes Diabetes mellitus type 2, insulin depend ent Use to inject medication 3 times daily Uncontrolled diabetes mellitus (E11.65). Use a new syringe each time. [facility] blood glucose meter 2016-09-12 00:00:00 Yes Diabetes mellitus type 2, insulin dependent Use as directed.. [facility] blood glucose test strips 2016-09-12 00:00:00 Yes Diabetes mellitus type 2, insulin dependent Q.5D 2 times daily to test blood sugar. [facility] lancets 2016-09-12 00:00:00 Yes Diabetes mellitus type 2, insulin dependent Q.5D by MISCELLANEOUS route 2 times daily. [facility] Cyclobenzaprine HCl 2016-05-15 04:20:37 Yes Ahmed Ahmed [...] 15 units, BS > 401: 20 units). [facility] blood glucose test strips 2016-02-11 00:00:00 Yes Uncontrolled type 2 diabetes mellitus without complication, with long-term current use of insulin Q.5D 2 times daily to test blood sugar. [facility] blood glucose test strips 2015-10-15 00:00:00 Yes Uncontrolled diabetes mellitus Q.5D 2 times daily to test blood sugar. [facility] blood glucose test strips 2015-09-11 00:00:00 Yes Uncontrolled diabetes mellitus Q.5D 2 times daily to test blood sugar. [facility] INSULIN SYRINGE 1mL 30GX5/16" syringe-needle 2015-08-18 00:0 0:00 Yes Uncontrolled diabetes mellitus Use 5 times daily. [facility] Insulin REGULAR CONCENTRATED (HUMULIN R CONCENTRATED) 500 un it/mL injection 2015-06-10 00:00:00 Yes Type 2 diabetes mellitus wi th diabetic neuropathy Inject 15 units under the dkin at breakfast and dinner [facility] Syringe, Disposable, (GLASPAK TB SYRINGE 1CC) 1 mL Syrg 2015-06-10 00:00:00 Yes Type 2 diabetes mellitus with diabetic neuropathy by Count [facility]; Combo Route) route To inject 0.15 cc sub Q U500 insulin breakfast and dinner. [facility] mometasone (NASONEX) 50 mcg/actuation nasal spray 2015-03-18 00:00:00 Yes Allergic rhinitis, cause unspecified 2{spray} QD 2 S prays by each nostril route daily. [facility] CPAP Supply 2014-11-19 00:00:00 Yes CPAP (continuous positive airway pressure) dependence Mask (fit to patien t), tubing & other supplies as needed to treat MICHEAL.. [facility] amoxicillin (AMOXIL) 500 mg capsule 2014-10-22 00:00:00 Yes Prophylactic antibiotic Take four capsules b y mouth one hour prior to dental appointment.. [facility] INSULIN SYRINGE 1mL 30GX5/16" syringe-needle 2014-10-16 00:0 0:00 Yes Uncontrolled diabetes mellitus Use to in ject insulin Use to inject insulin (5 injections/day). Use a new syringe each time. [facility] blood glucose test strips 2014-10-16 00:00:00 Yes Uncontrolled diabetes mellitus Use to check blood glucose 3 times a day. [facility] fluticasone (FLONASE) 50 mcg/actuation nasal spray 2014-10 00:00:00 Yes Allergic rhinitis 2{spray} QD Use 2 Sprays in each nostril jackelyn carey [facility] CPAP Supply 2014-10-15 00:00:00 Yes MICHEAL on CPAP Mask (fit to patient), tubing & other supplies as needed to treat MICHEAL.. [facility] aspirin (ASPIRIN) 81 mg chewable tablet 2014-08-26 00:00:00 Yes Hypothyroid 81mg QD Chew and swallow 1 tablet by mouth daily. [facility] lancets 28 gauge 2014-04-29 00:00:00 Yes Unc ontrolled diabetes mellitus Use as directed 3 times a day. [facility] blood glucose meter 2014-04-02 00:00:00 Yes DM (d iabetes mellitus) Use as directed.. [facility] ketoconazole (NIZORAL) 2 % topical cream 2013-12-27 00:00:00 Yes Tinea pedis QD Apply to affected area daily. [facility] blood glucose meter 2013-07-12 00:00:00 Yes Diabetes mellitus, type II Use as directed. [facility] Aspirin 81 Mg Tab.chew Aspirin 81 Mg Tab.chew Yes 81 Daily [facility] Bumetanide 1 Mg Tablet Bumetanide 1 Mg Tablet Yes 2 Twice A Day [facility] Bupropion Hcl (Bupropion Xl) 150 Mg Tab.er.24h Bupropi on Hcl (Bupropion Xl) 150 Mg Tab.er.24h Yes [address] [facility] Carvedilol 12.5 Mg Tablet Carvedilol 12.5 Mg Tablet Yes 25 Twice A Day [facility] Clindamycin Hcl 150 Mg Capsule Clindamycin Hcl 150 Mg Capsule Yes 300 Every 8 Hours [facility] Cyanocobalamin (Vitamin B-12) 1,000 Mcg Tab Cyanocobal ford (Vitamin B-12) 1,000 Mcg Tab Yes 5000 Daily [facility] Cyclobenzaprine Hcl (Flexeril) 10 Mg Tablet Cyclobenza jonathan Hcl (Flexeril) 10 Mg Tablet Yes 10 Three Times A Day [facility] Ferrous Sulfate 325 Mg Tablet Ferrous Sulfate 325 Mg Tablet Yes 325 Daily [facility] Fluoxetine Hcl 20 Mg Capsule Fluoxetine Hcl 20 Mg Capsule Y es 20 Daily [facility] Insulin Regular, Human (Novolin R) 100 Unit/1 Ml Vial Insulin Regular, Human (Novolin R) 100 Unit/1 Ml Vial Yes Three T imes A Day [facility] Krill Oil/[place]-3/Dha/Epa ([facility] [place]-3 Krill Oil 300 S fgl) 1 Each Capsule Krill Oil/[place]-3/Dha/Epa ([facility] [place]-3 Krill Oil 300 Sfgl) 1 Each Capsule Yes 300 Rt Daily [facility] Levothyroxine Sodium 50 Mcg Tablet Levothyroxine Sodium 50 Mcg Tablet Yes 25 Daily [facility] Loratadine 10 Mg Tablet Loratadine 10 Mg Tablet Yes 10 Daily [facility] Losartan Potassium 25 Mg Tablet Losartan Potassium 25 Mg Tablet Yes 25 Daily [facility] Meloxicam 15 Mg Tablet Meloxicam 15 Mg Tablet Yes 15 Rt Daily [facility] Metformin Hcl (Glucophage Xr) 500 Mg Tab.er.24h Metfor min Hcl (Glucophage Xr) 500 Mg Tab.er.24h Yes 500 Twice A Day [facility] Multivitamin (Multivitamins) 1 Each Capsule Multivitam in (Multivitamins) 1 Each Capsule Yes 1 Rt Daily [facility] Novolin 70/30 Novolin 70/30 Yes 100 Twice A Day [facility] Omeprazole 40 Mg Capsule. Omeprazole 40 Mg Capsule. Yes 20 Daily [facility] Pregabalin (Lyrica) 50 Mg Cap Pregabalin (Lyrica) 50 Mg Cap Yes 100 Twice A Day [facility] Simvastatin 20 Mg Tablet Simvastatin 20 Mg Tablet Yes 20 Today At 9:00PM [facility] Tramadol Hcl (Ultram) 50 Mg Tablet Tramadol Hcl (Ultram) 50 Mg Tablet Yes 50 Rt Q6h [facility] Losartan/Hydrochlorothiazide (Hyzaar 100-25 Tablet) 1 Each Tablet, 100 Mg Oral Losartan/Hydrochlorothiazide (Hyzaar 100-25 Tablet) 1 Each Tablet, 100 Mg Oral 2017-07-27 00:00:00 No 100 Rt Daily [facility] Omeprazole (Prilosec) 20 Mg Capsule., 20 Mg Oral Ome prazole (Prilosec) 20 Mg Capsule., 20 Mg Oral 2017-07-27 00:00:00 No 20 D aily [facility] Pregabalin (Lyrica) 50 Mg Cap, 100 Mg Oral Pregabalin (Lyrica) 50 Mg Cap, 100 Mg Oral 2017-07-27 00:00:00 No 100 Twice A Day [facility] Simvastatin 40 Mg Tablet, 20 Mg Oral Simvastatin 40 Mg Tablet, 2 0 Mg Oral 2017-07-27 00:00:00 No 20 Bedtime [facility] Cholecalciferol (Vitamin D3) (Vitamin D) 5,000 Unit Ta blet, 5000 Unit Oral Cholecalciferol (Vitamin D3) (Vitamin D) 5,000 Unit Tablet, 5000 Unit Oral 2017-04-20 00:00:00 No 5000 Rt Daily [facility] Furosemide (Lasix) 40 Mg Tablet, 40 Mg Oral Furosemide (Lasix) 40 Mg Tablet, 40 Mg Oral 2017-04-20 00:00:00 No 40 Twice A Day [facility] Gabapentin (Neurontin) 600 Mg Tablet, 600 Mg Oral Amrit pentin (Neurontin) 600 Mg Tablet, 600 Mg Oral 2017-04-20 00:00:00 No 600 Thre e Times A Day [facility] Insulin Detemir (Levemir) 100 Unit/1 Ml Vial, 70 Units Sub-Q Insulin Detemir (Levemir) 100 Unit/1 Ml Vial, 70 Units Sub-Q 2017-04-20 00:00:00 No 70 Twice A Day [facility] Insulin Npl/Insulin Lispro (Humalog Mix 50-50 Kwikpen) 100 Unit/1 Ml Insuln.pen, 60 Units Sub-Q Insulin Npl/Insulin Lispro (Humalog Mix 50-50 Kwikpen) 100 Unit/1 Ml Insuln.pen, 60 Units Sub-Q 2017-04-20 00:00:00 No 60 Three Times A Day [facility] Metoprolol Succinate 50 Mg Tab.er.24h, 50 Mg Oral Meto prolol Succinate 50 Mg Tab.er.24h, 50 Mg Oral 2017-04-20 00:00:00 No 50 T wice A Day [facility] Hydrocodone Bit/Acetaminophen (Hydrocodo n-Acetaminoph 7.5-750) 1 Each Tablet, 7.5 Mg Oral Hydrocodone Bit/Acetaminophen (Hydrocodo n-Acetaminoph 7.5-750) 1 Each Tablet, 7.5 Mg Oral 2014-04-14 00:00:00 No 7.5 Rt Q6h [facility] Liraglutide (Victoza 2-Reddy) 0.6 Mg/0.1 Ml Pen.injctr, 1.2 Mg Sub-Q Liraglutide (Victoza 2-Reddy) 0.6 Mg/0.1 Ml Pen.injctr, 1.2 Mg Sub-Q 2014-04-02 3 00:00:00 No 1.2 Rt Daily [facility] Zedgrid 40 Mg Tab, 40 Mg Oral Zedgrid 40 Mg Tab, 40 Mg Oral 2014-04-14 00:00:[address] [facility] Immunizations Ordered Immunization Name Filled Immunization Name Date Status Comments Source Influenza Vaccine, Seasonal, Injectable 2017-05-02 00:00:0 0 Completed [facility] Tdap Tetanus, diphtheria, acellular pertussis Vaccine 2016-09-12 00:00:00 Completed [facility] Influenza Vaccine 2016-04-08 00:00:00 Completed [facility] Influenza Vaccine 2015-05-13 00:00:00 Completed [facility] Influenza Vaccine 2014-04-01 00:00:00 Completed [facility] Influenza Vaccine 2013-06-03 00:00:00 Completed [facility] PPV 23 Pneumococcal Polysaccaride 2013-06-03 00:00:00 Comp leted [facility] Vital Signs Vital Name Observation Time Observation Value Comments Source Weight 2017-11-07 16:30:00 [facility] med Heart Rate 2017-11-07 16:30:00 [facility] med Diastolic (mm Hg) 2017-11-07 16:30:00 Ahm [...] / Time Performed Performing Clinician [facility] e X-ray of chest, two views 2019-07-29 00:00:00 SHAYAN STEIN CH, I [facility] Ultrasound guidance for vascular access 2019-06-28 00:00:00 MYRIAM KIRBY [facility] INSERT OF TUNNEL VAD INTO CHEST SUBCU/FASCIA, PERC APPROACH 2019-06-28 00:00:[address] [facility] INSERTION OF INFUSION DEV INTO SUP VENA CAVA, PERC APPROACH 2019-06-28 00:00:00 HEATH ANDREA [facility] Ultrasound, renal 2019-06-17 00:00:00 FELICIA GRAY [facility] PERFORMANCE OF URINARY FILTRATION, <6 HRS/DAY 2019-06-16 00:00:0 0 MYRIAM KIRBY [facility] Ultrasound guidance for vascular access 2019-06-15 00:00:00 MARTY CHANEY [facility] RESPIRATORY VENTILATION, 24-96 CONSECUTIVE HOURS 2019-06-15 00:00:00 MARTY GREENWOOD [facility] INSERTION OF INFUSION DEV INTO SUP VENA CAVA, PERC APPROACH 2019-06-15 00:00:00 MARTY MEJIA [facility] INSERTION OF ENDOTRACHEAL AIRWAY INTO TRACHEA, VIA OPENING 2 00:00:00 MARTY GREEN[place]OD [facility] X-ray of chest, two views 2018-12-26 00:00:00 RAHUL GUARDADO [facility] Plan of Care Planned Activity Planned Date Details Comments Source [facility] Scheduled Test 2020-04-02 00:00:00 IMM Influenza Seas onal Apr to August (>/= 19 yrs) [code = IMM Influenza Seasonal Apr to August (>/= 19 yrs)] [facility] Scheduled Test 2020-03-23 00:00:00 Cervical Cancer Sc rn (3 Yrs) [code = Cervical Cancer Scrn (3 Yrs)] [facility] Scheduled Test 2018-05-02 00:00:00 DM HGBA1C (Yearly) [code = DM HGBA1C (Yearly)] [facility] Scheduled Test 2018-02-17 00:00:00 DM Foot Exam (Year ly) [code = DM Foot Exam (Yearly)] [facility] Scheduled Test 2018-01-04 00:00:00 Breast Cancer Scrn (Yearly) [code = Breast Cancer Scrn (Yearly)] [facility] Scheduled Test 2017-09-21 00:00:00 DM Retinal Exam (Y early) [code = DM Retinal Exam (Yearly)] [facility] Scheduled Test 2017-09-13 00:00:00 Colorectal Cancer Scrn Annual (FIT/FOBT) Age 50 to 75 [code = Colorectal Cancer Scrn Annual (FIT/FOBT) Age 50 to 75] [facility] Encounters Start Date/Time End Date/Time Encounter Type Admission Type Attendi [facility] Facility Care Department Encounter ID Source 2019-09-23 22:45:00 2019-09-24 01:50:00 Departed Emergency Room 1 DESTINEY BARBOUR [facility] [id number] [facility] 2019-07-29 12:17:00 2019-07-29 12:17:00 Registered Clinic 3 SHAYAN PRIDE [facility] [id number] [facility] 2019-06-15 16:48:00 2019-07-02 16:08:00 Discharged Inpatient 1 BONY BRUNO [facility] [id number] [facility] 2018-12-26 22:25:00 2018-12-27 00:42:00 Departed Emergency Room 1 GRADY GUARDADO [facility] [id number] [facility] 2017-11-07 11:30:00 2017-11-07 11:30:00 [facility] [id number] [employer] 2017-08-08 11:15:00 2017-08-08 11:15:00 Outpatient [facility] [id number] [employer] 2017-07-27 16:06:00 2017-08-01 13:12:00 Discharged Inpatient ER VALENTINA LAZARO [facility] [id number] [facility] 2017-07-25 11:00:00 2017-07-25 11:00:00 Outpatient [facility] [id number] [employer] 2017-07-20 00:00:00 2017-07-20 00:00:00 Outpatient [facility] [id number] [facility] 2017-06-06 00:00:00 2017-06-06 00:00:00 Outpatient [facility] [id number] [facility] 2017-06-02 14:42:59 2017-06-02 14:42:59 Outpatient [facility] [id number] [facility] 2017-06-01 11:00:00 2017-06-01 11:00:00 Outpatient [facility] Lelia [id number] [employer]Works 2017-05-10 00:00:00 2017-05-10 00:00:00 Outpatient [facility] [id number] [facility] 2017-05-02 13:49:43 2017-05-02 13:49:43 Outpatient [facility] [id number] [facility] 2017-05-02 12:51:25 2017-05-02 12:51:25 Outpatient [facility] [id number] [facility] 2017-04-22 07:51:00 2017-04-22 07:51:00 Registered Surgical Day Care [facility] [id number] [facility] 2017-04-13 08:48:34 2017-04-13 08:48:34 Outpatient [facility] [id number] [facility] 2017-03-30 00:00:00 2017-03-30 00:00:00 Outpatient [facility] [id number] [facility] 2017-03-23 10:00:11 2017-03-23 10:00:11 Outpatient [facility] [id number] [facility] 2017-03-20 00:00:00 2017-03-20 00:00:00 Outpatient [facility] [id number] [facility] 2017-03-16 10:45:00 2017-03-16 10:45:00 [facility] [id number] [employer] 2017-03-09 00:00:00 2017-03-09 00:00:00 Outpatient [facility] [id number] [facility] 2017-03-08 00:00:00 2017-03-08 00:00:00 Outpatient [facility] [id number] [facility] 2017-02-17 15:42:22 2017-02-17 15:42:22 Outpatient [facility] [id number] [facility] 2017-01-30 10:06:03 2017-01-30 10:06:03 Outpatient [facility] [id number] [facility] 2017-01-19 00:00:00 2017-01-19 00:00:00 Outpatient [facility] [id number] [facility] 2017-01-04 12:46:57 2017-01-04 12:46:57 Outpatient [facility] [id number] [facility] 2016-12-02 10:50:46 2016-12-02 10:50:46 Outpatient [facility] [id number] [facility] 2016-11-22 10:30:00 2016-11-22 10:30:00 [facility] [id number] [employer]Works 2016-09-21 09:45:00 2016-09-21 09:45:00 [facility] [id number] [employer] 2016-06-07 14:15:00 2016-06-07 14:15:00 [facility] [id number] e[employer]Works 2016-03-08 20:00:00 2016-03-08 20:00:00 f/u 3 james Duran [place], [place] [id number] [facility] 2016-03-08 14:00:00 2016-03-08 14:00:00 Outpatient Roger Duran MD, LELIA Duran [place], [place] [id number] [facility] 2015-12-01 20:15:00 2015-12-01 20:15:00 F/U TESTING LESLY Duran MD, [place] [id number] [facility] 2015-12-01 20:15:00 2015-12-01 20:15:00 F/U TESTING LESLY Duran MD, LELIA [id number] [facility] 2015-12-01 20:15:00 2015-12-01 20:15:00 F/U TESTING L[place], [place] [id number] [facility] 2015-12-01 20:00:00 2015-12-01 20:00:00 Chauncey LESLY Duran [place], [place] [id number] [facility] 2015-12-01 20:00:00 2015-12-01 20:00:00 Crow LESLY Duran MD, [place] [id number] [facility] 2015-12-01 20:00:00 2015-12-01 20:00:00 Crow [place] [id number] [facility] 2015-12-01 14:15:00 2015-12-01 14:15:00 Outpatient Roger Duran MD, LELIA [place], [place] [id number] [facility] 2015-12-01 14:00:00 2015-12-01 14:00:00 Outpatient Roger Duran MD, [place], [place] [id number] [employer] 2015-11-09 17:30:00 2015-11-09 17:30:00 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-hx of Hyperlipidemia,High BP,CHF,CP LESLY Duran MD, PA [id number] [facility] 2015-11-09 17:30:00 2015-11-09 17:30:00 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-hx of Hyperlipidemia,High BP,CHF,CP LESLY Duran MD, PA [id number] [facility] 2015-11-09 17:30:00 2015-11-09 17:30:00 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-hx of Hyperlipidemia,High BP,CHF,CP LESLY Duran MD, PA [id number] [facility] 2015-11-09 17:30:00 2015-11-09 17:30:00 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-hx of Hyperlipidemia,High BP,CHF,CP LESLY Duran MD, PA [id number] [facility] 2015-11-09 11:30:00 2015-11-09 11:30:00 Outpatient Roger Duran MD, [place], [place] [id number] [facility] Results Test Description Test Time Test Comments Results Result Comments Source CHEST SINGLE (PORTABLE) 2019-11-21 14:17:00 [place] [address] Patient Name: ASHA ESCALANTE MR #: [id number] : 1960 Age/Sex: 59/F Req #: [id number] Adm Physician: Ordered by: DESTINEY BARBOUR DO Report #: [id number] Location: ER Room/Bed: Procedure: [id number] DX/CHEST SINGLE (PORTABLE) Exam Date: 11/21/19 Exam Time: 1355 REPORT STATUS: Signed X-ray chest frontal view Comparison: 09/04/2019 History: Chest pain shortness of breath Findings: An underpenetrated film likely confounded by the patient's large body habitus. Difficult to interpret. Central airways unremarkable. Cardiomegaly. Possible widening of the vascular pedicle. No pleural effusion. No pneumothorax. Likely interstitial lung edema. No other focal lung consolidation. Visualized skeleton is unremarkable. Upper abdomen cannot be evaluated. In the interim right IJ route dual lumen catheter, likely a tunneled dialysis catheter has been removed. Impression: Technically limited exam. Possible interstitial pulmonary edema. Signed by: Cedric Patiño MD on 11/21/2019 2:19 PM Dictated By: CEDRIC PATIÑO MD 18 Transcribed By: JAMAICA on 11/21/191418 COPY TO: DESTINEY BARBOUR DO KNEE THREE VIEWS BILATERAL 2019-09-24 00:56:00 [place] [address] Patient Name: ASHA ESCALANTE MR #: [id number] : 1960 Age/Sex: 59/F Req #: [id number] Adm Physician: Ordered by: DESTINEY BARBOUR DO Report #: [id number] Location: ER Room/Bed: Procedure: DX/KNEE THREE VIEWS BILATERAL Exam Date: Exam [...] BARBOUR DO SHOULDER RIGHT COMPLETE 2019-09-24 00:55:00 [place] [address] Patient Name: ASHA ESCALANTE MR #: [id number] : 1960 Age/Sex: 59/F Req #: [id number] [facility] Physician: Ordered by: DESTINEY BARBOUR DO Report #: [id number] Location: ER Room/Bed: Procedure: DX/SHOULDER RIGHT COMPLETE [...] BARBOUR DO CHEST SINGLE (PORTABLE) 2019-09-24 00:51:00 [place] [address] Patient Name: ASHA ESCALANTE MR #: [id number] : 1960 Age/Sex: 59/F Req #: [id number] Adm Physician: Ordered by: DESTINEY BARBOUR DO Report #: [id number] Location: ER Room/Bed: Procedure: [id number] DX/CHEST SINGLE (PORTABLE) Exam Date: Exam Time: [...] BARBOUR DO CHEST 2 VIEWS 2019-07-29 13:05:00 [place] [address] Patient Name: ASHA ESCALANTE MR #: [id number] : 1960 Age/Sex: 59/F Req #: [id number] Adm Physician: Ordered by: SHAYAN STEIN MD Report #: [id number] Location: [facility] Room/Bed: Procedure: [id number] DX/CHEST 2 VIEWS Exam Date: 07/29/19 Exam [...] 1:06 PM Dictated By: ISABEL GARCIA MD 1306 Transcribed By: JAMAICA on 07/29/19 1306 COPY TO: SHAYAN STEIN MD Methylmalonic Acid 2019-07-09 12:13:00 Test Item Methylmalonic Acid (test code = 32516-8) 654 Reference Range:0 - 378 nmol/L Disclaimer: This test was developed and its perfo rmance characteristics determined by [facility]. It has not been cleared or approve d by the Food and Drug Administration.Testing performed by:[facility] [place] [address] [address] [place] [id number]. Ayden Cota [facility] Fxvjq0884-27-84 23:50:00* Test Item Value Reference Range Interpretation Comments p-ANCA Titer (test code = 41674-7) <1:20 Neg:<1:20 The presence of positive fluorescence exhibiting P-ANCA orC-ANCA patterns alone is not specific for the diagnosis ofWegener's Granulomatosis (WG) or microscopic polyangiitis.Decisions about treatment should not be based solely onANCA IFA re sults. The International ANCA Group Consensusrecommends follow up testing of po sitive sera with both NC-3 and MPO-ANCA enzyme immunoassays. As many as 5% serum samples are positive only by EIA. Ref. AM J Clin Hnqbac5388;111:507-513.[facility] Kingwoodc-ANCA Qienq2498-85-55 23:50:00* Test Item Value Reference Range Interpretation Comments c-ANCA Titer (test code = 93141-1) <1:20 Neg:<1:20 [facility] KingwoodAtypical q-YYVG5938-02QTSP6868-88-55 23:50:00* Test Item Value Reference Range Interpretation Comments Atypical p-ANCA (test code = 05162-4) <1:20 Neg:<1:20 The atypical pANCA pattern has been observed in asignificant percentage of patie nts with ulcerative colitis,primary sclerosing cholangitis and autoimmune hepati tis.Performed at: - [place] [address]Lab Director: Ce Holliday MD, Phone: [phone] Hermann [facility] Hospital KingwoodBedside Odylzqa6423-49-36 19:06:00* Test Item Value Reference Range Interpretation Comments Bedside Glucose (test code = 18388-9) 215 70-120 Meter ID: [id number] Health [facility] Stephenvilleodium Level 2019-07-02 11:17:00* Test Item Value Reference Range Interpretation Comments Sodium Level (test code = 2951-2) 125 136-145 [facility] KingwoodPotassium Baowf3230-74-17 11:17:00* Test Item Value Reference Range Interpretation Comments Potassium Level (test code = 2823-3) 3.6 3.5-5.1 [facility] KingwoodChloride Zryad4984-19-10 11:17:00* Test Item Value Reference Range Interpretation Comments Chloride Level (test code = 2075-0) 92 98-107 [facility] KingwoodCarbon Dioxide Bybyp6578-66-11 11:17:00* Test Item Value Reference Range Interpretation Comments Carbon Dioxide Level (test code = 2028-9) 25 22-29 [facility] KingwoodAnion Tgv6502-19-34 11:17:00* Test Item Value Reference Range Interpretation Comments Anion Gap (test code = 19506-3) 11.6 8-16 [facility] KingwoodBlood Urea Xhtwiewj1732-14-23 11:17:00* Test Item Value Reference Range Interpretation Comments Blood Urea Nitrogen (test code = 3094-0) 32 7-26 [facility] KingwoodCreatinine2019-12-31 11:17:00* Test Item Value Reference Range Interpretation Comments Creatinine (test code = 2160-0) 1.93 0.57-1.11 [facility] KingwoodBUN/Creatinine Otclb7811-45-46 11:17:00* Test Item Value Reference Range Interpretation Comments BUN/Creatinine Ratio (test code = 3097-3) 17 6-25 [facility] KingwoodEstimat Glomerular Filtration Rate 2019-07-02 11:17:00* Test Item Value Reference Range Interpretation Comments Estimat Glomerular Filtration Rate (test code = 104521860) 27 >60 Ranges were taken from the National Kidney Disease Education Program and the [facility] Kidney Foundation literature.Reference ranges:60 or greater: Etyfhz82-39 ( for 3 consecutive months): Chronic kidney disease 15 or less: Kidney failureMemorial Hermann Surgical Hospital KingwoodGlucose Elrgs1612-38-53 11:17:00* Test Item Value Reference Range Interpretation Comments Glucose Level (test code = HSY6074) 222 74-118 [facility] KingwoodCalcium Jhkdo5618-13-37 11:17:00* Test Item Value Reference Range Interpretation Comments Calcium Level (test code = 77788-0) 8.2 8.4-10.2 [facility] KingwoodWhite Blood Wzdxx6571-19-65 11:05:00* Test Item Value Reference Range Interpretation Comments White Blood Count (test code = 6690-2) 6.83 4.8-10.8 [facility] KingwoodRed Blood Snsrc5461-07-98 11:05:00* Test Item Value Reference Range Interpretation Comments Red Blood Count (test code = 789-8) 2.43 3.6-5.1 [facility] KingwoodHemoglobin2019-12-31 11:05:00* Test Item Value Reference Range Interpretation Comments Hemoglobin (test code = 54291-8) 7.5 12.0-16.0 Results called to CALDERON KALEB at 1105 on 07/02/19 by Carloz Chandler. RB [place].[facility] KingwoodHematocrit2019-12-31 11:05:00* Test Item Value Reference Range Interpretation Comments Hematocrit (test code = 4544-3) 22.6 34.2-44.1 Results called to CALDERON JODI at 1102 on 07/02/19 by Carloz Chandler. RB [place].[facility] KingwoodMean Corpuscular Mhiovq8418-89-64 11:05:00* Test Item Value Reference Range Interpretation Comments Mean Corpuscular Volume (test code = 787-2) 93.0 81-99 [facility] KingwoodMean Corpuscular Cgwihxkeok4898-78-86 11:05:00* Test Item Value Reference Range Interpretation Comments Mean Corpuscular Hemoglobin (test code = 785-6) 30.9 28-32 [facility] KingwoodMean Corpuscular Hemoglobin Concent 2019-07-02 11:05:00* Test Item Value Reference Range Interpretation Comments Mean Corpuscular Hemoglobin Concent (test code = 786-4) 33.2 31-35 [facility] KingwoodRed Cell Distribution Abytv7053-23-69 11:05:00* Test Item Value Reference Range Interpretation Comments Red Cell Distribution Width (test code = 57915-4) 15.0 11.7 -14.4 [facility] KingwoodPlatelet Pykht7535-15-81 11:05:00* Test Item Value Reference Range Interpretation Comments Platelet Count (test code = 777-3) 164 140-360 [facility] KingwoodNeutrophils (%) (Auto)2019-07-02 11:05:00 * Test Item Value Reference Range Interpretation Comments Neutrophils (%) (Auto) (test code = 31963-2) 73.7 38.7-80.0 [facility] KingwoodLymphocytes (%) (Auto)2019-07-02 11:05:00 * Test Item Value Reference Range Interpretation Comments Lymphocytes (%) (Auto) (test code = 736-9) 15.8 18.0-39.1 [facility] KingwoodMonocytes (%) (Auto)2019-07-02 11:05:00* Test Item Value Reference Range Interpretation Comments Monocytes (%) (Auto) (test code = 5905-5) 7.5 4.4-11.3 [facility] KingwoodEosinophils (%) (Auto)2019-07-02 11:05:00 * Test Item Value Reference Range Interpretation Comments Eosinophils (%) (Auto) (test code = 713-8) 2.3 0.0-6.0 [facility] KingwoodBasophils (%) (Auto)2019-07-02 11:05:00* Test Item Value Reference Range Interpretation Comments Basophils (%) (Auto) (test code = 706-2) 0.3 0.0-1.0 [facility] KingwoodIM GRANULOCYTES %2019-07-02 11:05:00* Test Item Value Reference Range Interpretation Comments IM GRANULOCYTES % (test code = IM GRANULOCYTES %) 0.4 0.0- 1.0 [facility] KingwoodNeutrophils # (Auto)2019-07-02 11:05:00* Test Item Value Reference Range Interpretation Comments Neutrophils # (Auto) (test code = 751-8) 5.0 2.1-6.9 [facility] KingwoodLymphocytes # (Auto)2019-07-02 11:05:00* Test Item Value Reference Range Interpretation Comments Lymphocytes # (Auto) (test code = 50283-7) 1.1 1.0-3.2 [facility] KingwoodMonocytes # (Auto)2019-07-02 11:05:00* Test Item Value Reference Range Interpretation Comments Monocytes # (Auto) (test code = 742-7) 0.5 0.2-0.8 [facility] KingwoodEosinophils # (Auto)2019-07-02 11:05:00* Test Item Value Reference Range Interpretation Comments Eosinophils # (Auto) (test code = 711-2) 0.2 0.0-0.4 [facility] KingwoodBasophils # (Auto)2019-07-02 11:05:00* Test Item Value Reference Range Interpretation Comments Basophils # (Auto) (test code = 704-7) 0.0 0.0-0.1 [facility] KingwoodAbsolute Immature Granulocyte (auto 2019-07-02 11:05:00* Test Item Value Reference Range Interpretation Comments Absolute Immature Granulocyte (auto (barak t code = Absolute Immature Granulocyte (auto) 0.03 0-0.1 [facility] KingwoodBlood Yuzgsjs5462-69-56 08:25:00* Test Item Value Reference Range Interpretation Comments Blood Culture (test code = 56679110) NO GROWTH AFTER 5 DAYS, FINAL REPORT [facility] KingwoodTotal Nvbrzylxx1757-28-39 08:07:00* Test Item Value Reference Range Interpretation Comments Total Bilirubin (test code = 1975-2) 0.6 0.2-1.2 [facility] KingwoodAspartate Amino Transf (AST/SGOT) 2019-06-30 08:07:00* Test Item Value Reference Range Interpretation Comments Aspartate Amino Transf (AST/SGOT) (test code = Aspartate Amino Transf (AST/SGOT)) 24 5-34 [facility] KingwoodAlanine Aminotransferase (ALT/SGPT) 2019-06-30 08:07:00* Test Item Value Reference Range Interpretation Comments Alanine Aminotransferase (ALT/SGPT) (test code = 1742-6) 20 0-55 [facility] KingwoodTotal Qiltvzj9132-95-63 08:07:00* Test Item Value Reference Range Interpretation Comments Total Protein (test code = 2885-2) 8.2 6.5-8.1 [facility] KingwoodAlbumin2019-12-29 08:07:00* Test Item Value Reference Range Interpretation Comments Albumin (test code = 1751-7) 2.8 3.5-5.0 [facility] KingwoodGlobulin2019-12-29 08:07:00* Test Item Value Reference Range Interpretation Comments Globulin (test code = 94613-6) 5.4 2.3-3.5 [facility] KingwoodAlbumin/Globulin Qywcm9349-60-13 08:07:00 * Test Item Value Reference Range Interpretation Comments Albumin/Globulin Ratio (test code = 1759-0) 0.5 0.8-2.0 [facility] KingwoodAlkaline Qtciwxouccf2277-31-66 08:07:00* Test Item Value Reference Range Interpretation Comments Alkaline Phosphatase (test code = 6768-6) 229 40-150 [facility] KingwoodAnti-Nuclear Antibody Sgmotz0517-26-46 21:35:00* Test Item Value Reference Range Interpretation Comments Anti-Nuclear Antibody Screen (test code = 5048-4) Negative . Negative <1:80 Borderline 1:80 Positive > 1:80Performed at: [facility] [id number] 3Lab Director: Cuba Santana MD, Phone: [phone] Hermann Surgical Hospital KingwoodRheumatoid Egoejj7259-09-26 21:35:00* Test Item Value Reference Range Interpretation Comments Rheumatoid Factor (test code = 81345-9) <10.0 0.0-13.9 Performed at: [facility] - [facility] [id number] Director: Cuba Santana MD, Phone: [phone] Hermann Surgical Hospital KingwoodComplement R12817-08-08 21:35:00* Test Item Value Reference Range Interpretation Comments Complement C3 (test code = 4485-9) 136 82-167 [facility] KingwoodComplement F66158-88-67 21:35:00* Test Item Value Reference Range Interpretation Comments Complement C4 (test code = 4498-2) 25 14-44 [facility] KingwoodMOD SEDATE INITIAL >5 EPJ3838-21-64 12:31:00 [facility] [address] [place] [address] Patient Name: ASHA ESCALANTE MR #: [id number] : 1960 Age/Sex: 59/F Req #: [id number] Adm Physician: BONY BRUNO MD Ordered by: HEATH ANDREA MD Report #: [id number] Location: MED/SURG2 Room/Bed: [facility] Procedure: [id number] DX/MOD SEDATE INITIAL >5 YRS Exam Date: 07/15/19 Exam Time: 1150 REPORT STATUS: Signed Tunneled dialysis catheter insertion, 06/28/2019. History: Renal failure. Modality: Sonography and fluoroscopy. Sedation: Versed 1.0 mg and fentanyl 50 mcg was given intravenously for conscious sedation. Vital signs were monitored throughout the procedure by a nurse, and remained stable. Physician intra-service time was 20 minutes. White Lead Filterer: Harvey. Scroll Machine Operator: None. Approach: Right internal jugular vein Estimated [...] needle into the right atrium. A 4 Tunisian micropuncture sheath was placed. A subcutaneous tunnel was created in the right anterior chest wall by blunt dissection. A 19 cm the tip 14.5 Tunisian dialysis catheter was brought through the tunnel. [...] 12:32 PM Dictated By: HEATH ANDREA MD 141 Transcribed By: JAMAICA on 07/17/19 1419 COPY TO: HEATH ANDREA MD US GUIDANCE FOR VASCULAR WRNUQ8722-82-53 12:31:00 [place] [address] Patient Name: ASHA ESCALANTE MR #: [id number] : 1960 Age/Sex: 59/F Req #: [id number] Adm Physician: BONY BRUNO MD Ordered by: MIRTA MATIAS, MYRIAM MATIAS Report #: [id number] Location: MED/SURG2 Room/Bed: [facility] Procedure: [id number] US /US GUIDANCE FOR VASCULAR ACCES Exam Date: 06/28/19 Exam Time: 1134 REPORT STATUS: Sign ed Tunneled dialysis catheter insertion, 06/28/2019. History: Renal failure. Modality: Sonography and fluoroscopy. Sedation: Versed 1.0 mg and fentanyl 50 mcg was given intravenously for conscious sedation. Vital signs were monitored throughout the procedure by a nurse, and remained stable. Physician intra-service time was 20 minutes. White Lead Filterer: Harvey. Scroll Machine Operator: None. Approach: Right internal jugular vein Estimated [...] placed through the needle into the ri ght atrium. A 4 Tunisian micropuncture sheath was placed. A subcutaneous tunnel was created in the right anterior chest wall by blunt dissection. A 19 cm the tip 14.5 Tunisian dialysis catheter was brought through the tunnel. [...] TO: MYRIAM KIRBY TUNNELLED CVC INSERT W/O VDGC0886-00-79 12:31:00 [place] [address] Patient Name: ASHA ESCALANTE MR #: [id number] : 1960 Age/Sex: 59/F Req #: [id number] Adm Physician: BONY BRUNO MD Ordered by: MYRIAM KIRBY MD, MD Report #: [id number] Location: MED/SURG2 Room/Bed: [facility] Procedure: [id number] IR /TUNNELLED CVC INSERT W/O PORT Exam Date: Exam Time : REPORT STATUS: Signed Tunnele d dialysis catheter insertion, 06/28/2019. History: Renal failure. Modality: Sonography and fluoroscopy. Sedation: Versed 1.0 mg and fentanyl 50 mcg was given intravenously for co nscious sedation. Vital signs were monitored throughout the procedure by a nu rse, and remained stable. Physician intra-service time was 20 minutes. White Lead Filterer: Harvey. Scroll Machine Operator: None. Approach: Right internal jugular vein Estimated [...] needle into the right atrium. A 4 Tunisian micropuncture sheath was placed. A subcutaneous tunnel was created in the right anterior chest wall by blunt dissection. A 19 cm the tip 14.5 Tunisian dialysis catheter was brought through the tunnel. [...] on 07/17/191418 COPY TO: MYRIAM KIRBY Lactate Ugkvwuebuoobe8364-92-99 09:03:00* Test Item Value Reference Range Interpretation Comments Lactate Dehydrogenase (test code = 214432980) 169 125-220 [facility] KingwoodPhosphorus Artje6672-57-15 06:14:00* Test Item Value Reference Range Interpretation Comments Phosphorus Level (test code = AWY0215) 5.8 2.3-4.7 [facility] KingwoodMODIFIED BA. RHKYDYJ1933-11-64 14:00:00 [place] [address] Patient Name: ASHA ESCALANTE MR #: [id number] : 1960 Age/Sex: 59/F Req #: [id number] Adm Physician: BONY BRUNO MD Ordered by: BONY BRUNO MD Report #: [id number] Location: [facility] Room/Bed: [place] [address] Procedure: [id number] DX /MODIFIED BA. SWALLOW Exam Date: 06/24/19 [...] 1400 COPY TO: BONY BRUNO MD Magnesium Ywjkw4176-34-44 05:51:00* Test Item Value Reference Range Interpretation Comments Magnesium Level (test code = 32433-2) 2.3 1.3-2.[address] [facility])2019-06-21 08:58:00 [place] [address] Patient Name: ASHA ESCALANTE MR #: [id number] : 1960 Age/Sex: 59/F Req #: [id number] Adm Physician: BONY BRUNO MD Ordered by: MARTY GREENWOOD MD Report #: [id number] Location: ICU Room/Bed: ICU [facility] Procedure: [id number] DX/CH EST SINGLE (PORTABLE) Exam Date: 06/21/19 [...] onically Signed By: ISABEL GARCIA MD on 06/21/19 09 Transcribed By: JAMAICA on 08/22/18 09 COPY TO: MARTY GREENWOOD MD Urine VQQ1642-75-60 07:00:00* Test Item Value Reference Range Interpretation Comments Urine WBC (test code = 5821-4) 21-50 0-5 [facility] KingwoodUrine RIY2349-68-72 07:00:00* Test Item Value Reference Range Interpretation Comments Urine RBC (test code = 73238-5) >50 0-5 [facility] Igavuyey3350-80-10 07:00:00* Test Item Value Reference Range Interpretation Comments Urine Bacteria (test code = 82903-1) MANY NONE [facility]wood[facility] Epithelial Goqgh3456-00-70 07:00:00 * Test Item Value Reference Range Interpretation Comments Urine Epithelial Cells (test code = 98223-4) MODERATE NONE [facility]woodU[facility] Rhelw3423-11-62 06:45:00* Test Item Value Reference Range Interpretation Comments Urine Color (test code = 5778-6) YELLOW YELLOW [facility]wood[facility] Rakndsm5869-57-58 06:45:00* Test Item Value Reference Range Interpretation Comments Urine Clarity (test code = 01038-9) CLOUDY CLEAR [facility] Specific Ruiszlj6674-21-42 06:45:00 * Test Item Value Reference Range Interpretation Comments Urine Specific [place] (test code = 5811-5) 1.025 1.010-1.02 5 [facility]wood[facility] bE0325-19-38 06:45:00* Test Item Value Reference Range Interpretation Comments Urine pH (test code = 80159-6) 5.5 5-7 [facility] Leukocyte Yomhdvwn6970-91-70 06:45:00* Test Item Value Reference Range Interpretation Comments Urine Leukocyte Esterase (test code = 78408-9) TRACE NEGATIV E [facility]wood[facility] Xlvssdy0043-89-64 06:45:00* Test Item Value Reference Range Interpretation Comments Urine Nitrite (test code = 47011-2) NEGATIVE NEGATIVE [facility] Qgakxbm1702-81-30 06:45:00* Test Item Value Reference Range Interpretation Comments Urine Protein (test code = 97041-3) 2+ NEGATIVE [facility]wood[facility] Glucose (UA)2019-06-21 06:45:00* Test Item Value Reference Range Interpretation Comments Urine Glucose (UA) (test code = 97422-9) NEGATIVE NEGATIVE [facility] Edmqkqx9572-22-18 06:45:00* Test Item Value Reference Range Interpretation Comments Urine Ketones (test code = 56644-7) TRACE NEGATIVE [facility] Bxtvfccmvuky1578-98-43 06:45:00* Test Item Value Reference Range Interpretation Comments Urine Urobilinogen (test code = 96666-5) 0.2 0.2-1 [facility] Bybtetmww2016-12-56 06:45:00* Test Item Value Reference Range Interpretation Comments Urine Bilirubin (test code = 1977-8) SMALL NEGATIVE [facility]wood[facility] Yszxm0642-04-53 06:45:00* Test Item Value Reference Range Interpretation Comments Urine Blood (test code = 13380-8) 3+ NEGATIVE [facility]woodAmmonia2019-12-20 06:40:00* Test Item Value Reference Range Interpretation Comments Ammonia (test code = 84998-0) 41 31-123 [facility]woodAmylase Zrjcq9835-72-28 05:59:00* Test Item Value Reference Range Interpretation Comments Amylase Level (test code = 1798-8) 90 25-125 [facility]woodLipase2019-12-20 05:59:00* Test Item Value Reference Range Interpretation Comments Lipase (test code = 3040-3) 91 8-78 [facility]woodArterial Blood vM3474-04-31 05:40:00* Test Item Value Reference Range Interpretation Comments Arterial Blood pH (test code = 2744-1) 7.50 7.31-7.41 [facility]woodAr[facility] Blood Partial Pressure CO2 2019-06-21 05:40:00* Test Item Value Reference Range Interpretation Comments Arterial Blood Partial Pressure CO2 (test code = 2018-8) 34 41-51 [facility]woodAr[facility] Blood Partial Pressure O2 2019-06-21 05:40:00* Test Item Value Reference Range Interpretation Comments Arterial Blood Partial Pressure O2 (test code = 2018-8) 68 80-105 [facility]woodAr[facility] Blood NHB87170-55-76 05:40:00* Test Item Value Reference Range Interpretation Comments Arterial Blood HCO3 (test code = 1960-4) 27 23-28 [facility]woodAr[facility] Blood Base Nwywnd6191-02-77 05:40:00* Test Item Value Reference Range Interpretation Comments Arterial Blood Base Excess (test code = 1925-7) 4.0 -2-3 [facility]wood[facility] Blood Oxygen Saturation 2019-06-21 05:40:00* Test Item Value Reference Range Interpretation Comments Arterial Blood Oxygen Saturation (test code = 2708-6) 95.0 95-98 [facility]woodFiO22019-12-20 05:40:00* Test Item Value Reference Range Interpretation Comments FiO2 (test code = FiO2) 40 PT. ON [address] [facility] [facility] 2019-06-20 08:08:00 [facility] [address] [place] [address] Patient Name: ASHA ESCALANTE MR #: [id number] : 1960 Age/Sex: 59/F Req #: [id number] Adm Physician: BONY BRUNO MD Ordered by: MARTY GREENWOOD MD Report #: [id number] Location: ICU Room/Bed: ICU [facility] Procedure: [id number] DX/CH EST SINGLE (PORTABLE) Exam Date: 06/20/19 [...] Transcribed By: JAMAICA on 811 COPY TO: AMRTY GREENWOOD MD B-Type Natriuretic Peptide 2019-06-19 05:33:00* Test Item Value Reference Range Interpretation Comments B-Type Natriuretic Peptide (test code = 45716-5) 156.1 0-100 [facility] Be Rqycvhnb6072-32-20 22:09:00 * Test Item Value Reference Range Interpretation Comments Hepatitis Be Antibody (test code = 79904-7) Negative Negative Performed at: - [address] [id number] Preparation Plant Repairer: Ce Holliday MD, Phone: [phone] [facility]ann [facility] B Core Total Dyaikcqy6837-12-75 08:46:00* Test Item Value Reference Range Interpretation Comments Hepatitis B Core Total Antibody (test code = 15126-3) Negative Negative [facility] B Surface Jemklle4331-87-77 08:46:00* Test Item Value Reference Range Interpretation Comments Hepatitis B Surface Antigen (test code = 5196-1) Negative Negat edin [facility] B Core IgM Qitrvpdo3388-64-81 08:46:00* Test Item Value Reference Range Interpretation Comments Hepatitis B Core IgM Antibody (test code = 71121-7) Negative Ne gative Performed at: - LabCo[address] [id number] Director: Cuba Santana MD, Phone: [phone]woodCHEST SINGLE (PORTABLE)2019-06-18 08:25:00 [place] [address] Patient Name: ASHA ESCALANTE MR #: [id number] : 1960 Age/Sex: 59/F Req #: [id number] Adm Physician: BONY BRUNO MD Ordered by: MARTY GREENWOOD MD Report #: [id number] Location: ICU Room/Bed: ICU 1921 Procedure: [id number] DX/CH EST SINGLE (PORTABLE) Exam Date: 06/18/19 [...] COPY TO: MARTY GREENWOOD MD RENAL RETROPERITONEAL WVJR5700-52-68 16:01:00 [place] [address] Patient Name: ASHA ESCALANTE MR #: [id number] : 1960 Age/Sex: 59/F Req #: [id number] Adm Physician: BONY BRUNO MD Ordered by: FELICIA GRAY MD Report #: [id number] Location: ICU Room/Bed: ICU [facility] Procedure: [id number] US/US RENAL RETROPERITONEAL COMP Exam Date: 06/17/19 Exam Time: 1443 REPORT STATUS: Signed EXAM: Renal Ultrasound INDICATION: ABNORMAL RENAL FUNCTION 2018 1215 1443 Y COMPARISON: None TECHNIQUE: Transverse and [...] 4:02 PM Dictated By: ISABEL GARCIA MD 1602 Transcribed By: J[place]ICA on 06/17/19 1602 COPY TO: FELICIA GRAY MD Homocysteine 2019-06-17 11:12:00* Test Item Value Reference Range Interpretation Comments Homocysteine (test code = 56383-2) 12.8 0.0-15.0 Performed at: [address] [id number] Director: Cuba Santana MD, Phone: [phone] [facility]2019-12-16 07:23:00* Test Item Value Reference Range Interpretation Comments Iron Level (test code = 2498-4) 70 50-170 [facility]woodTotal Iron Binding Pxxnymwu6419-02-42 07:23:00* Test Item Value Reference Range Interpretation Comments Total Iron Binding Capacity (test code = 2500-7) 237 261-4 78 [facility] KingwoodPercent Iron Wjwefwtvkc6003-57-15 07:23:00* Test Item Value Reference Range Interpretation Comments Percent Iron Saturation (test code = 2502-3) 30 15-50 [facility] KingwoodTransferrin2019-12-16 07:23:00* Test Item Value Reference Range Interpretation Comments Transferrin (test code = 3034-6) 169 180-382 [facility] KingwoodCreatine Bmfohc5919-65-61 21:47:00* Test Item Value Reference Range Interpretation Comments Creatine Kinase (test code = 2157-6) 124 29-168 [facility] KingwoodCreatine Kinase ML8047-25-37 21:47:00* Test Item Value Reference Range Interpretation Comments Creatine Kinase MB (test code = 80194-3) 2.50 0-5.0 [facility] KingwoodTroponin K2783-31-61 21:47:00* Test Item Value Reference Range Interpretation Comments Troponin I (test code = UOW8819) 0.050 0-0.300 [facility] KingwoodDifferential Total Cells Counted 2019-06-16 10:58:00* Test Item Value Reference Range Interpretation Comments Differential Total Cells Counted (test code = Differen tial Total Cells Counted) 100 [facility] KingwoodNeutrophils % (Manual)2019-06-16 10:58:00 * Test Item Value Reference Range Interpretation Comments Neutrophils % (Manual) (test code = 28376-7) 89 40-74 [facility] KingwoodLymphocytes % (Manual)2019-06-16 10:58:00 * Test Item Value Reference Range Interpretation Comments Lymphocytes % (Manual) (test code = 737-7) 9 19-48 [facility] KingwoodMonocytes % (Manual)2019-06-16 10:58:00* Test Item Value Reference Range Interpretation Comments Monocytes % (Manual) (test code = 744-3) 1 3.4-9.0 [facility]woodMyelocytes %2019-06-16 10:58:00* Test Item Value Reference Range Interpretation Comments Myelocytes % (test code = 749-2) 1 0-0 [facility] KingwoodNucleated Red Blood Xvynd8974-18-85 10:58:00* Test Item Value Reference Range Interpretation Comments Nucleated Red Blood Cells (test code = 80015-2) 1 [facility] KingwoodPlatelet Fqezwwrq1089-51-27 10:58:00* Test Item Value Reference Range Interpretation Comments Platelet Estimate (test code = 55456-0) ADEQUATE [facility] KingwoodPlatelet Morphology Gwxarol5748-95-52 10:58:00* Test Item Value Reference Range Interpretation Comments Platelet Morphology Comment (test code = 32287-2) NORMAL [facility] KingwoodMacrocytosis2019-12-15 10:58:00* Test Item Value Reference Range Interpretation Comments Macrocytosis (test code = 738-5) SLIGHT [facility] KingwoodRed Cell Morphology Szdsnjm3897-20-75 10:58:00* Test Item Value Reference Range Interpretation Comments Red Cell Morphology Comment (test code = 6742-1) NORMAL [facility] KingwoodCHEST SINGLE (PORTABLE)2019-06-16 09:55:00 [facility] [address] [place] [address] Patient Name: ASHA ESCALANTE MR #: [id number] : 1960 Age/Sex: 59/F Req #: [id number] Adm Physician: BONY BRUNO MD Ordered by: MARTY GREENWOOD MD Report #: [id number] Location: ICU Room/Bed: ICU [facility] Procedure: [id number] DX/CH EST SINGLE (PORTABLE) Exam Date: 06/16/19 Exam Time: 0900 REPORT STATUS: Signed EXAM INATION: CHEST SINGLE (PORTABLE) INDICATION: SOB. COMPARISON: est radiograph 06/16/2019. FINDINGS: TUBES and LINES: [...] MD 6 Transc ribed By: JAMAICA on 06/16/19 09 COPY TO: MARTY GREENWOOD MD Lactic Acid Wbgoa6128-67-33 09:18:00* Test Item Value Reference Range Interpretation Comments Lactic Acid Level (test code = Lactic Acid Level) 6.9 0.5- 2.0 Results repeated and called to Aden Sandoval at 0917 on 06/16/19 by Moris costello Read back and verified.[facility] KingwoodTriglycerides Xlolc4866-30-03 08:32:00* Test Item Value Reference Range Interpretation Comments Triglycerides Level (test code = 2571-8) 111 0-149 [facility] KingwoodCholesterol Jmibe2074-08-88 08:32:00* Test Item Value Reference Range Interpretation Comments Cholesterol Level (test code = 2093-3) 120 0-199 Less than 200 mg/dL Low Txax405 - 239 mg/dL Borderline Owag401 m g/dl and greater High Risk [facility] KingwoodLDL Prnbecssdmm4527-10-13 08:32:00* Test Item Value Reference Range Interpretation Comments LDL Cholesterol (test code = 2089-1) 71 60-130 [facility] KingwoodHDL Mcczbsqhiox0671-07-10 08:32:00* Test Item Value Reference Range Interpretation Comments HDL Cholesterol (test code = 2085-9) 27 40-60 [facility] KingwoodCholesterol/HDL Hzerg5516-77-88 08:32:00 * Test Item Value Reference Range Interpretation Comments Cholesterol/HDL Ratio (test code = 9830-1) 4.4 3.0-3.6 [facility] KingwoodHemoglobin A1c Izklpeh9148-11-41 07:15:00 * Test Item Value Reference Range Interpretation Comments Hemoglobin A1c Percent (test code = Hemoglobin A1c Percent) 7.5 4.0-7.0 [facility] KingwoodProthrombin Tyoa9348-93-02 07:03:00* Test Item Value Reference Range Interpretation Comments Prothrombin Time (test code = 5902-2) 16.0 11.9-14.5 [facility] KingwoodProthromb Time International Ratio 2019-06-16 07:03:00* Test Item Value Reference Range Interpretation Comments Prothromb Time International Ratio (test code = 6301-6) 1.22 Oral Anticoagulant Therapy INR Values:1. Low Intensity Therapy 1.5 - 2.02 . Moderate Intensity Therapy 2.0 - 3.03. High Intensity Therapy(1) 2.5 - 3. 54. High Intensity Therapy(2) 3.0 - 4.05. Panic Value INR > 5.0 [facility] KingwoodCHEST SINGLE (PORTABLE)2019-06-16 01:02:00 [facility] [address] [place] [address] Patient Name: ASHA ESCALANTE MR #: [id number] : 1960 Age/Sex: 59/F Req #: [id number] Adm Physician: BONY BRUNO MD Ordered by: BONY BRUNO MD Report #: [id number] Location: ICU Room/Bed: ICU 192-1 Procedure: [id number] DX /CHEST SINGLE (PORTABLE) Exam Date: 06/16/19 [...] TO: BONY BRUNO MD CHEST XRAY LINE KUJZQUSED7956-49-30 00:41:00 [place] [address] Patient Name: ASHA ESCALANTE MR #: [id number] : 1960 Age/Sex: 59/F Req #: [id number] Adm Physician: BONY BRUNO MD Ordered by: MARTY MEJIA MD Report #: [id number] Location: ICU Room/Bed: ICU 1921 Procedure: [id number] DX/ CHEST XRAY LINE PLACEMENT Exam Date: [...] MARTY MEJIA MD CHEST SINGLE (PORTABLE)2019-06-16 00:30:00 [place] [address] Patient Name: ASHA ESCALANTE MR #: [id number] : 1960 Age/Sex: 59/F Req #: [id number] Adm Physician: BONY BRUNO MD Ordered by: DESTINEY BARBOUR DO Report #: [id number] Location: ICU Room/Bed: ICU 1921 Procedure: [id number] DX/CHEST SINGLE (PORTABLE) Exam Date: 06/15/19 Exam [...] TO: DESTINEY BARBOUR DO NON-TUNNELLED CVC CATH MFZEWNE0708-85-32 00:11:00 [place] [address] Patient Name: ASHA ESCALANTE MR #: [id number] : 1960 Age/Sex: 59/F Req #: [id number] Adm Physician: BONY BRUNO MD Ordered by: BONY BRUNO MD Report #: [id number] Location: ICU Room/Bed: ICU [facility] Procedure: [id number] IR /NON-TUNNELLED CVC CATH PLACMNT Exam Date: 06/19/19 Exam Time: 2029 REPORT STATUS: Sign ed Date and Time: 06/15/2019 Procedure: Ultrasound-guided right internal jugular temporary hemodialysis catheter placement lead shop operator: Dr. Mejia Assistants: None Pre-operative diagnosis: End-stage renal diseas e, hyperkalemia Post-operative diagnosis: End-stage renal disease, hyperkalemi a Conscious Sedation: Intravenous propofol followed by continuous Versed in fusion initiated by emergency physician. Refer to nursing record. Jareth tional Medications: Lidocaine 1% for local anesthesia Fluoroscopy time: 0 Contrast used: 0 Estimated blood loss: Minimal Specimens: None Implan ts: 13 Tunisian, 15 cm triple-lumen temporary hemodialysis catheter Complication [...] the tract was dilated. Then a 13 [place]ian 15 cm tripl e-lumen hi flow central [...] Ulti mately successful placement of a 13 [place]isian, 15 cm triple-lumen Trialysis maikel ter by [...] 06/21/19921 COPY TO: BONY BRUNO MD IR CDJHLST5150-43-40 00:11:00 [place] [address] Patient Name: ASHA ESCALANTE MR #: [id number] : 1960 Age/Sex: 59/F Req #: [id number] Adm Physician: BONY BRUNO MD Ordered by: MARTY GREENWOOD MD Report #: [id number] Location: ICU Room/Bed: ICU 192-1 Procedure: [id number] DX/IR CONSULT Exam Date: Exam Time: REPORT STATUS: Signed Date and Time: 06/15/2019 Procedure: Ultrasound-guided right internal jugular temporary hemodialysis c atheter placement lead shop operator: Dr. Mejia Assistants: None Pr e-operative diagnosis: End-stage renal disease, hyperkalemia Post-operative di agnosis: End-stage renal disease, hyperkalemia Conscious Sedation: Intraven ous propofol followed by continuous Versed infusion initiated by emergency phy sician. Refer to nursing record. Additional Medications: Lidocaine 1% fo r local anesthesia Fluoroscopy time: 0 Contrast used: 0 Estimated b lood loss: Minimal Specimens: None Implants: 13 Tunisian, 15 cm triple-lumen t emporary hemodialysis catheter [...] to a depth of 10 cm with ocean import representative sonographic images stored. At t his [...] needle was again used to access the righ t internal jugular vein with a permanent sonographic images stored in the [facility] record. A 0.0 3 5-in. wire was advanced to a depth of 25 cm with continuou s cardiac rhythm monitoring. The needle was removed over the wire and the trac t was dilated. Then a 13 [place]ian 15 cm triple-lumen hi flow central venous [...] IMPRESSION: Ultimately successful placement of a 13 Tunisian, 15 cm triple-lumen Trialysis catheter by a [...] on 06/21/19921 COPY TO: MARTY GREENWOOD MD GUIDANCE FOR VASCULAR XWIHJ1584-94-59 00:11:00 [place] [address] Patient Name: ASHA ESCALANTE MR #: [id number] : 1960 Age/Sex: 59/F Req #: [id number] Adm Physician: BONY BRUNO MD Ordered by: MARTY GREENWOOD MD Report #: [id number] Location: ICU Room/Bed: ICU [facility] Procedure: [id number] US/US GUIDANCE FOR VASCULAR ACCES Exam Date: 06/15/19 Exam Time: 2204 REPORT STATUS: Signed Date and Time: 06/15/2019 Procedure: Ultrasound-guided right internal ju gular temporary hemodialysis catheter placement lead shop operator: Dr. Irish carvajal Assistants: None Pre-operative diagnosis: End-stage renal disease, hyperkalemia Post-operative diagnosis: End-stage renal disease, hyperkalemia Conscious Sedation: Intravenous propofol followed by continuous Versed infus ion initiated by emergency physician. Refer to nursing record. Additio nal Medications: Lidocaine 1% for local anesthesia Fluoroscopy time: 0 Contrast used: 0 Estimated blood loss: Minimal Specimens: None Implants: 13 Tunisian, 15 cm triple-lumen temporary hemodialysis catheter Complications: [...] to a depth of 10 cm with ocean import representative sonographic images stored. At this point, [...] the tract was dilated. Then a 13 Tunisian 15 cm triple-l umen hi flow central [...] Ultimat kate successful placement of a 13 Tunisian, 15 cm triple-lumen Trialysis catheter by a [...] COPY TO: MARTY GREENWOOD MD Vitamin B12 Xcdxz8347-11-08 20:02:00* Test Item Value Reference Range Interpretation Comments Vitamin B12 Level (test code = 62530-7) > 2000 213-816 [facility]woodThyroid Stimulating Hormone (TSH) 2019-06-15 17:35:00* Test Item Value Reference Range Interpretation Comments Thyroid Stimulating Hormone (TSH) (test code = 40612-1) 0.029 0.350-4.940 [facility] KingwoodInfluenza Virus Types A,B Antigen 2019-06-15 16:11:00* Test Item Value Reference Range Interpretation Comments Influenza Virus Types A,B Antigen (test code = 35105-9) NEGATIVE NEGATIVE [facility] KingwoodActivated Partial Thromboplast Time 2019-06-15 15:51:00* Test Item Value Reference Range Interpretation Comments Activated Partial Thromboplast Time (test code = 87897-8) 32.6 23.8-35.5 [facility]woodCHEST SINGLE (PORTABLE)2019-06-15 15:50:00 [facility] [address] [place] [address] Patient Name: ASHA ESCALANTE MR #: [id number] : 1960 Age/Sex: 59/F Req #: [id number] Adm Physician: Ordered by: DELFINO ALEJANDRA MACHINE ROOM OPERATOR Report #: [id number] Location: ER Room/Bed: Procedure: [id number] DX/ CHEST SINGLE (PORTABLE) Exam Date: 06/15/19 Exam Jorden e: 1515 REPORT STATUS: Signed EX AMINATION: CHEST SINGLE (PORTABLE) INDICATION: ERMD ORDER [id number] 1515 Y COMPARISON: 12/26/2018 FINDINGS: AP v [...] J[place] on 06/15/191550 COPY TO: DELFINO ALEJANDRA MACHINE ROOM OPERATOR HIP RIGHT 2-3 VW (+/- PELVIS)2018-12-26 23:40:00 [place] [address] Patient Name: ASHA ESCALANTE MR #: [id number] : 1960 Age/Sex: 58/F Req #: [id number] Adm Physician: Ordered by: GRADY GUARDADO MD Report #: [id number] Location: ER Room/Bed: Procedure: 007 1 DX/HIP RIGHT 2-3 VW (+/- PELVIS) Exam Date: Exam Time: REPORT STATUS: Signed Exam: right hip 2 views History: pain Comparison: None. Finding s: No fracture or malalignment. Joint spaces preserved. No abnormal soft tissu e calcification or soft tissue defect. Impression: No acute osseous abnormality Signed by: Dr. Manuelito Farnsworth M.D. on 12/26/2018 11:42 PM Dictated By: MANUELITO FARNSWORTH MD 41 Transcribed By: J[place]ICA on 12/26/182341 COPY TO: GRADY GUARDADO MD [facility] 2 GANJP6566-49-21 23:36:00 [place] [address] Patient Name: ASHA ESCALANTE MR #: [id number] : 1960 Age/Sex: 58/F Req #: [id number] Adm Physician: Ordered by: GRADY GUARDADO MD Report #: [id number] Location: ER Room/Bed: Procedure: [id number] 0 DX/CHEST [...] normal. Bones and soft tissues: No ac [place] bony abnormalities. IMPRESSION: No acute cardiopulmonary abn ormalities. Signed by: Dr. Manuelito Farnsworth M.D. on 12/26/2018 11 :40 PM Dictated By: MANUELITO FARNSWORTH MD 39 Transcribed By: JAMAICA on 12/26/182339 C OPY TO: GRADY GUARDADO MD CT FOOT RIGHT W [place] [address] Patient Name: ASHA ESCALANTE MR #: [id number] : 1960 Age/Sex: 57/F Req #: [id number] Adm Physician: Ordered by: VALENTINA LAZARO MD Report #: [id number] Location: ER Room/Bed: Procedure: [id number] CT/CT FOOT RIGHT W Exam Federico e: [...] TO: VALENTINA LAZARO MD FOOT RIGHT COMPLETE [place] [address] Patient Name: ASHA ESCALANTE MR #: [id number] : 1960 Age/Sex: 57/F Req #: [id number] Adm Physician: Ordered by: VALENTINA LAZARO MD Report #: [id number] Location: ER Room/Bed: Procedure: [id number] DX/FOOT RIGHT COMPLETE Exam Date: 07/27/17 Exam [...]
--- NOTE | 2019-11-21 16:35 | NUR ---
urinary catheter drained, output of 600.
[2019-11-21] MEDS ORDERED: SODIUM CHLORIDE 0.9% 500ML 500 ML IV STA (17:13)
[2019-11-21] MEDS ORDERED: EUTHYROX50 MCG PO (17:23)
[2019-11-21] MEDS ORDERED: LASIX80 MG PO (17:23)
[2019-11-21] MEDS ORDERED: BENZONATATE100 MG PO (17:23)
[2019-11-21] MEDS ORDERED: ALLOPURINOL100 MG PO (17:26)
[2019-11-21 17:27] VITALS: BP 129/71
[2019-11-21 17:30] VITALS: BP 129/71
--- NOTE | 2019-11-21 17:38 | NUR ---
patient received via stretcher. see admit assess. sinus rhythm. vitals stable. to radiology now for CT scan.
--- NOTE | 2019-11-21 18:19 | Diagnostic Imaging Report ---
EXAMINATION: CT of the chest with contrast, PE protocol. TECHNIQUE: Spiral CT images of the chest were performed from the lung apices through the level of the adrenal glands after the IV administration of 100 cc of Isovue 370. Thin section reconstructions were obtained with special concentration on the pulmonary arteries. Coronal and sagittal reformatted images were also performed. COMPARISON: Portable chest 09/24/2019 and 11/21/2019 CLINICAL HISTORY:Chest pain, trouble breathing, on dialysis DISCUSSION: Exam limited by patient's body habitus. Lungs: No filling defects are identified in the main, right or left pulmonary arteries to their segmental levels, to suggest pulmonary embolism. Suboptimal evaluation of the subsegmental level arteries. Groundglass opacities extending from the dorene in bilateral upper and lower lobes with interlobular septal thickening. Some of these opacities are more confluent in the lower lobes bilaterally. Bilateral mild compressive atelectasis. No pulmonary masses or nodules. Airways: <The major airways are clear, without loculation.> Pleura: Small bilateral pleural effusions, right greater than left. Heart and mediastinum: Thyroid is unremarkable. Mild cardiomegaly. Atherosclerotic calcification of the coronary arteries and thoracic aortic arch. Aorta is nonaneurysmal. Main pulmonary artery is dilated, measuring 3.1 cm. Lymph nodes: Mildly enlarged right upper paratracheal lymph nodes which measure 1.0 cm in short axis (series 2, image 27 and 26). Mildly enlarged right lower paratracheal lymph node measuring 1.3 cm in short axis (series 2, image 33). No other mediastinal or hilar or axillary adenopathy. Abdomen: The visualized portions of the abdomen show subtle nodular contour of the liver suggesting cirrhosis, mild splenomegaly (although the spleen is not entirely visualized). Unremarkable adrenals, pancreas and kidneys. Bones and soft tissues: No aggressive lytic or suspicious sclerotic lesions. Multilevel degenerated discs in the thoracic spine. Soft tissues are grossly unremarkable. IMPRESSION: 1. Exam limited by patient's body habitus. No CT evidence of pulmonary embolism to the segmental level. The subsegmental level arteries cannot be adequately evaluated. 2. Findings in bilateral lungs suggestive of interstitial pulmonary edema/fluid overload, particularly given the presence of cardiomegaly, bilateral pleural effusions. 3. More confluent opacities in bilateral lower lobes may represent atelectasis due to effusion, however, pneumonia is a consideration, in the upper clinical setting. 4. Mildly enlarged right upper and lower paratracheal lymph nodes, which may be reactive. 5. Subtle nodularity of the hepatic contour suggesting cirrhosis. 6. Mild splenomegaly, which may reflect portal hypertension. Signed by: Dr. Nicolas Santamaria M.D. on 11/21/2019 6:16 PM
[2019-11-21 19:00] VITALS: BP 129/71
[2019-11-21 20:59] VITALS: BP 104/68
[2019-11-21] MEDS ORDERED: POTASSIUM CHLORIDE 20 MEQ TAB CR PO ONE (21:21)
[2019-11-21] MEDS ORDERED: HYDROCODONE/APAP 5MG-325MG TAB PO PRN (21:30)
[2019-11-21] MEDS ORDERED: ACETAMINOPHEN 325 MG TAB PO PRN (21:30)
[2019-11-21] MEDS ORDERED: DOCUSATE SODIUM 100 MG CAP PO PRN (21:30)
[2019-11-21] MEDS ORDERED: ONDANSETRON HCL INJ 2MG/ML 2ML 2 MG/ML VIAL IV PRN (21:30)
[2019-11-21] MEDS ORDERED: HYDRALAZINE HCL 20 MG/ML VIAL IV PRN (21:30)
[2019-11-21] MEDS ORDERED: MELATONIN 5 MG TABLET PO PRN (21:30)
[2019-11-21 21:46] LABS: CHOL/HDL RATIO 3.1 (3.0-3.6)
[2019-11-21] MEDS ORDERED: AZITHROMYCIN 500MG/NS 250 ML 250 ML IV SCH (22:00)
--- NOTE | 2019-11-21 22:16 | NUR ---
made aware of consult
[2019-11-21] MEDS ORDERED: DEXTROSE 50% SYRINGE 50 ML IV PRN (22:45)
[2019-11-21] MEDS: FUROSEMIDE INJ 10 MG/ML 4 ML VIAL IV SCH (22:45)
[2019-11-21] MEDS ORDERED: SODIUM CHLORIDE 0.9% 250ML 250 ML ONE (22:50)
[2019-11-21] MEDS: CEFTRIAXONE SOD 1 GM/NS 50 ML 50 ML IV SCH (23:00)
[2019-11-22] VITALS (7 sets, daily range): BP systolic 121–168; BP diastolic 46–74
--- NOTE | 2019-11-22 00:55 | History and Physical ---
CHIEF COMPLAINT: Shortness of breath x2 weeks. HISTORY OF PRESENT ILLNESS: A 59-year-old female, morbidly obese, with multiple comorbidities of type 2 diabetes, morbidly obese, hypertension, hyperlipidemia, apparently back in June of 2019, was in the process of getting a dialysis catheter. Apparently, she coded on the table, but did very well later that admission, was discharged to home. She now presents to the hospital as a direct admission with complaints of underlying shortness of breath, ongoing for 2 weeks. The patient reports she recently traveled to [place] because her mother and she went to her . Of note, started having some cough and congestion. She reports having cough and congestion prior to even going to [place]. She denies any sick contacts around her. No reports of any fever. She lives with her son. Her son does not have any symptoms. Denies any fever at all. Occasionally, she reports having some chest pain. The patient was seen and evaluated at bedside in the [facility]. Currently, she is on a BiPAP requiring 50% FiO2. She desats when her oxygen is removed. She was comfortable when I evaluated her. Pulmonary, ID, and Cardiology was consulted. The patient was given IV diuretics and reports she is feeling much better now. REVIEW OF SYSTEMS: Pertinent positives; shortness of breath, cough, congestion, orthopnea, dyspnea on exertion. The rest of the 14-point review of systems have been reviewed with the patient and are negative. ALLERGIES: LATEX, PROMETHAZINE. HOME MEDICATIONS: Aspirin, omeprazole, simvastatin, allopurinol, multivitamin, tramadol, fish oil. PAST MEDICAL HISTORY: Hyperlipidemia, acid reflux, type 2 diabetes, morbidly obese. PAST SURGICAL HISTORY: History of cholecystectomy, tonsillectomy. FAMILY HISTORY: Hypertension, diabetes, morbidly. SOCIAL HISTORY: No drugs. No alcohol. PHYSICAL EXAMINATION: VITAL SIGNS: Temperature is 98.9, pulse 84, respiratory rate is 20, blood pressure 104/68, she is on a BiPAP 50% FiO2, she is saturating 98%. GENERAL: Not in acute distress, alert and oriented x3. Cooperative on exam. HEENT: Head is normocephalic and atraumatic. Eyes; pupils are equal, round, and reactive to light bilaterally. PULMONARY: She is on a BiPAP. She does have positive rales, positive crackles. She is breathing comfortably. CARDIOVASCULAR: Positive S1 and S2. No murmurs, rubs, or gallops appreciated. ABDOMEN: Soft, nondistended, nontender to palpation. Bowel sounds are present. MUSCULOSKELETAL: Moving all her extremities throughout. NEUROLOGICAL: No evidence of neurologic deficits on exam. SKIN: Intact, warm to touch. Good cap refill. PSYCHIATRIC: Normal affect and mood. EXTREMITIES: No edema. Good range of motion throughout. LABORATORY DATA: White count 6.7, hemoglobin 9.1, hematocrit is 30, platelets of 197, MCV 101. Coagulation; PT 13, INR 0.96, PTT 29. Chemistry; sodium 141, potassium 4.1, chloride 101, bicarb 30, anion gap of 14, BUN 38, creatinine is 1.42, glucose 161. Hemoglobin A1c 6.7. Lactic acid 1, calcium 9.3, total bilirubin is 0.7, AST 21, ALT 14, alkaline phosphatase 291. Her troponins are negative. BNP 133. Albumin is 7.6. LDL is 64. TSH is 2.5. Blood gas; pH is 7.49, pCO2 of 43, bicarbonate of 33. Urinalysis; 2+ protein, 6 to 10 rbc's. Coronavirus PCR pending. MICROBIOLOGY: Blood and urine cultures are pending. IMAGING STUDIES: Chest CTA shows no evidence of pulmonary embolism. There is bilateral lung suggestive of interstitial pulmonary edema, fluid overload with cardiomegaly. More confluent opacities in the bilateral lower lobes, may represent atelectasis due to effusion, however, pneumonia is a consideration. Mildly enlarged right upper and lower paratracheal lymph nodes, which may be reactive. There is some hepatic contour suggestive of cirrhosis. Some mild splenomegaly. Chest x-ray shows possible pulmonary interstitial edema. IMPRESSION: 1. Acute respiratory distress, possibly secondary to pulmonary edema. 2. Acute exacerbation of congestive heart failure with unknown dysfunction. 3. Community-acquired pneumonia. 4. Rule out coronavirus disease 2019. 5. Type 2 diabetes. 6. Hypertension. 7. Morbidly obese. PLAN: At this time, blood and urine cultures were collected and she is on broad-spectrum IV antibiotics. ID and Pulmonary were consulted. She is currently on a BiPAP. We are going to try to see we can wean her off. We are going to give her Lasix 40 mg IV q.8 x3 doses. She has received some Lasix earlier and she seems to have improved. We are going to resume her insulin sliding scale. Get Endocrinology consultation. We are going to consult with her director of early childhood once she finds out the name. We are going to trend her troponins. EKG noted. Chest x-ray and CT chest noted. Put on Lovenox for DVT prophylaxis. She will be on a diabetic diet. Discussed plan of care with nursing staff and comber fixer, which she came to evaluate her here at bedside this evening. MD MADELINE Tapia/MODL /[id number]
--- NOTE | 2019-11-22 01:48 | NUR ---
EMILY RODRIGUEZ FOR PT IS IN ROOM WITH PT IN PPE AND ASKED THIS NURSE TO OBTAIN THE MEDS FOR PATIENT TO AVOID UNECESSARY PPE LOSS. THIS NURSE PULLED MEDICATION FOR EMILY RODRIGUEZ AND WATCHED HIM ADMINISTER MEDS AT DOORWAY DIRECTLY TO THE PATIENT. HE WILL FOLLOW UP ON EFFECTS OF MED ADMINISTRATION.
--- NOTE | 2019-11-22 04:20 | Consultation ---
DATE OF CONSULTATION: Pulmonary and Critical Care Consultation CHIEF COMPLAINT: Worsening dyspnea. The patient with known kidney disease and congestive heart failure. HISTORY OF PRESENT ILLNESS: The patient is a 59-year-old woman. She has a history of congestive heart failure. She required hospitalization at [facility] in June of 2019 because of fluid overload and acute renal failure, believed to be secondary to medication. She required dialysis for 4 to 6 weeks. She recently had her temporary dialysis catheter removed. Over the past 2 weeks, she has noticed increased dyspnea. She says she has been drinking more fluid than usual because she had to go out of town to help the mother, who was sick. She denies any chest pain. She is not having fevers. She does have some cough. PAST SURGICAL HISTORY: 1. Status post cholecystectomy. 2. Status post . PAST MEDICAL HISTORY: 1. Congestive heart failure, unspecified. 2. History of chronic renal failure, stage 3. 3. History of hypertension. 4. Diabetes. 5. Gastroesophageal reflux. 6. Obstructive sleep apnea. SOCIAL HISTORY: No smoking or drinking. ALLERGIES: NO KNOWN DRUG ALLERGIES. FAMILY HISTORY: Family history is noncontributory. REVIEW OF SYSTEMS: The patient is afebrile. There is no headache. She does not complain of neck pain. She has some cough and some dyspnea. She has no chest pain. She has no nausea or vomiting. She has not have any leg swelling. PHYSICAL EXAMINATION: VITAL SIGNS: The patient is afebrile. The blood pressure is 104/68, saturation is 100%. She is on BiPAP at 15/5. Her pulse is 98. HEENT: Shows no facial swelling or erythema. CARDIAC: Reveals regular rate and rhythm with normal S1 and S2. LUNGS: Auscultation of lungs reveals decreased breath sounds at the bases. There is no wheezing. ABDOMEN: Soft, nontender. There is no rebound or guarding. EXTREMITIES: Shows 1 to 2+ leg edema. NEUROLOGICAL: Shows no focal abnormalities. LABORATORY DATA: White blood cell count is 6.7 and hemoglobin is 9.1. The platelet count is 197. The BUN to creatinine ratio is 38 to 1.42. Other electrolytes are within normal limits. ABG is pH 7.49 with a pCO2 of 43. RADIOGRAPHIC DATA: Chest x-ray shows some cardiomegaly and possible interstitial edema. CT scan of the chest shows no evidence of pulmonary embolism. There is some interstitial pulmonary edema and cardiomegaly. There are also some opacities in the lower lobes, possibly related to atelectasis. There is some nodularity of the liver, possibly representing cirrhosis. IMPRESSION: 1. Lgovd-[id number] congestive heart failure, unspecified. 2. Chronic renal insufficiency, stage 3. 3. Obstructive sleep apnea. 4. Anemia, unspecified. 5. Hypothyroidism. 6. Diabetes. PLAN: 1. Continue diuresis. 2. Antibiotics to treat for community-acquired pneumonia. 3. Echocardiogram. 4. Continue to monitor renal function. 5. Vapotherm with BiPAP as needed for backup. Thomas Jensen MD [facility]/MODL /[id number]
[2019-11-22 05:32] LABS: BASOPHILS % 0.4 % (0.0-1.0); EOSINOPHILS # (AUTO) 0.2 (0.0-0.4); EOSINOPHILS % 2.1 % (0.0-6.0); HEMATOCRIT 30.1 % (34.2-44.1); LYMPHOCYTES # (AUTO) 1.2 (1.0-3.2); LYMPHOCYTES % 14.7 % (18.0-39.1); MEAN CORPUSCULAR HEMOGLOBIN 30.1 pg (28-32); MEAN CORPUSCULAR HGB CONC 29.9 g/dL (31-35); MEAN CORPUSCULAR VOLUME 100.7 fL (81-99); MONOCYTES # (AUTO) 0.4 (0.2-0.8); MONOCYTES % 5.4 % (4.4-11.3); NEUTROPHILS # (AUTO) 6.3 (2.1-6.9); PLATELET COUNT 213 x10e3/uL (140-360); RED BLOOD COUNT 2.99 x10e6/uL (3.6-5.1); RED CELL DISTRIBUTION WIDTH 15.4 % (11.7-14.4)
[2019-11-22 05:58] LABS: ALBUMIN 2.9 g/dL (3.5-5.0); ALBUMIN/GLOBULIN RATIO 0.6 (0.8-2.0); ANION GAP 11.9 mmol/L (8-16); CALCIUM 8.7 mg/dL (8.4-10.2); CREATININE, SERUM 1.62 mg/dL (0.57-1.11); POTASSIUM 4.9 mmol/L (3.5-5.1)
[2019-11-22] MEDS: FUROSEMIDE INJ 10 MG/ML 4 ML VIAL IV SCH ×3 (07:34→21:10)
--- NOTE | 2019-11-22 07:40 | NUR ---
Dr. Sun called and made aware of consult.
--- NOTE | 2019-11-22 07:47 | NUR ---
patient endorsed to next shift for continuity of care. Dr. JAMISON called for consult
[2019-11-22] MEDS: PANTOPRAZOLE SOD 40 MG TABEC PO SCH (08:08)
[2019-11-22] MEDS: ASPIRIN 81 MG CHEW TAB PO SCH (08:08)
[2019-11-22] MEDS ORDERED: ONDANSETRON HCL 4 MG ORAL DISINTEGRATING TAB PO PRN (08:30)
[2019-11-22] MEDS ORDERED: AZITHROMYCIN 250 MG TAB PO SCH (09:00)
[2019-11-22] MEDS ORDERED: DEXTROSE 50% SYRINGE 50 ML IV PRN (13:00)
[2019-11-22] MEDS: INSULIN LISPRO 100 UNIT/1 ML 3ML VIAL SQ SCH ×4 (13:05→22:04)
--- NOTE | 2019-11-22 14:13 | Consultation ---
DATE OF CONSULTATION: 11/22/2019 Endocrine Consultation The patient of Dr. Gutierrez. Thank you very much for referring this patient. HISTORY OF PRESENT ILLNESS: This is a 59-year-old lady, who was referred to me for evaluation of uncontrolled diabetes mellitus. The patient reportedly is a known diabetic for almost 20 years and she takes insulin 70/30 100 units in the morning and 100 units in afternoon. She came to the hospital with history of cough, chest congestion, congestive cardiac failure. She has history of chronic renal failure and was in the dialysis in the past. She also has history of hypertension, hyperlipidemia. PHYSICAL EXAMINATION: GENERAL: Today, the patient is alert, awake. She is morbidly obese. She has bilateral pedal edema. VITAL SIGNS: Her heart rate is around 78, blood pressure is 126/78 mmHg. HEENT: Essentially unremarkable. Thyroid is palpable. Clinically, she is near euthyroid. CHEST: Bilateral vesicular breathing. No rales. CARDIOVASCULAR: First and second sounds. There is no third or fourth heart sound. Ejection systolic murmur is grade 2/6. The patient has evidence of diabetic sensory neuropathy in both lower extremities. Her blood sugars have been in the range of 161-198 during the hospital stay. CLINICAL IMPRESSION: Diabetes mellitus type 2, uncontrolled with complications, congestive cardiac failure, chronic renal failure, hypertension, hyperlipidemia. PLAN: At this time is to do hemoglobin A1c, thyroid function tests, monitor her blood sugars closely and put on the Lantus and Humalog insulin. Thanks for referring this patient. I will be following this patient with you. MD JUAN Garcia/MODL /[id number]
--- NOTE | 2019-11-22 15:23 | Progress Note ---
DATE: SUBJECTIVE: The patient reports some improvement, but still has dyspnea. She was using a high-flow nasal cannula, but now is using BiPAP again. She has not had fever. She has no chest pain. PHYSICAL EXAMINATION: VITAL SIGNS: The patient is afebrile. The vital signs are stable. HEENT: Shows no facial swelling or erythema. CARDIAC: Reveals regular rate and rhythm with normal S1 and S2. LUNGS: Auscultation of lungs reveals clear breath sounds bilaterally. There is no wheezing. ABDOMEN: Soft and nontender. There is no rebound or guarding. EXTREMITIES: Shows no leg edema or calf tenderness. There is no cyanosis or clubbing. SKIN: Shows no rashes. NEUROLOGICAL: Shows no focal abnormalities. LABORATORY DATA: The BUN to creatinine ratio is 39 to 1.62. The other electrolytes are within normal limits. The white blood cell count is 8.1 and the hemoglobin is 9. The platelet count is 213. IMPRESSION: 1. Xdkws-gf-abbyrvf diastolic heart failure. 2. Chronic renal failure, stage 3. 3. Hypertension. 4. Diabetes. 5. Obstructive sleep apnea. 6. Anemia, unspecified. PLAN: 1. Continue diuresis. 2. Wean oxygen. 3. Echocardiogram. 4. Continue to monitor renal function. 5. Case discussed with Nephrology and Infectious Disease. Thomas Jensen MD [facility]/MODL /[id number]
[2019-11-22] MEDS ORDERED: INSULIN GLARGINE 100 UNITS/ML VIAL SQ SCH (16:00)
[2019-11-22] MEDS ORDERED: INSULIN LISPRO 100 UNIT/1 ML 3ML VIAL SQ SCH (17:00)
[2019-11-22] MEDS: ENOXAPARIN SOD INJ 40 MG/0.4 ML SYR SC SCH (18:14)
[2019-11-22] MEDS: INSULIN GLARGINE 100 UNITS/ML VIAL SQ SCH (18:15)
--- NOTE | 2019-11-22 19:35 | NUR ---
Received change of shift report from AM nurse. Walking rounds completed.
--- NOTE | 2019-11-22 20:45 | NUR ---
patient just had a large brown bowel movement, using bed side commode; she had shortness of breaths on exertion.
[2019-11-22] MEDS: SIMVASTATIN 20 MG TAB PO SCH (21:00)
[2019-11-22] MEDS: CEFTRIAXONE SOD 1 GM/NS 50 ML 50 ML IV SCH (21:30)
[2019-11-22] MEDS: AZITHROMYCIN 250 MG TAB PO SCH (21:51)
--- NOTE | 2019-11-22 22:15 | Progress Note ---
DATE: Medicine Progress Note SUBJECTIVE: The patient is doing much better now. She is off the BiPAP and weaned off the nasal cannula. The patient was evaluated early this afternoon around 1:30 p.m. I discussed the plan of care with nursing staff. She reports breathing much better. PHYSICAL EXAMINATION: VITAL SIGNS: Temperature is 97.9, pulse is 84 respiratory rate is 24, blood pressure is 142/46, and pulse ox 94% on 7 L nasal cannula. GENERAL: Not in acute distress. Alert and oriented x3. Cooperative on examination. HEENT: Head; normocephalic, atraumatic. Eyes; pupils are equal, round, and reactive to light bilaterally. PULMONARY: Clear to auscultation bilaterally. No wheezing, no rales, no rhonchi, no crackles appreciated. CARDIOVASCULAR: Positive S1 and S2. No murmurs, rubs, or gallops appreciated. ABDOMEN: Soft, nondistended, and nontender to palpation. Bowel sounds present. MUSCULOSKELETAL: Strength is 5/5 throughout. No evidence of any muscle deficits on examination. SKIN: Intact. Warm to touch. Good cap refill. PSYCHIATRIC: Normal affect and mood. EXTREMITIES: No edema. Good range of motion throughout. LABORATORY DATA: Show white count 8.1, hemoglobin 9, hematocrit 30, and platelets of 213. Chemistry; sodium 141, potassium 4.9, chloride 102, bicarb 32 anion gap of 11, BUN is 39, creatinine 1.62, glucose is 198. Troponins were all negative. Hemoglobin A1c 6.7. Coronavirus PCR not detected. MICROBIOLOGY: Blood cultures, no growth. Urine cultures, no growth. IMAGING STUDIES: Noted. IMPRESSION: 1. Acute respiratory distress secondary to pulmonary edema. 2. Acute exacerbation of congestive heart failure, unknown dysfunction. 3. Community-acquired pneumonia. 4. Miller virus PCR negative. 5. Type 2 diabetes. 6. Hypertension. 7. Morbidly obese. PLAN: At this time, blood and urine culture showed no growth to-date. Continue with broad-spectrum IV antibiotics for underlying pneumonia. ID is following as well as Pulmonary. She is breathing much better. Continue with aggressive IV diuretics. Repeat labs in the morning. Endocrinology consulted for underlying diabetes. We will go ahead and consult with the jewelry polisher as her jewelry polisher is in [facility]. Continue with Lovenox for DVT prophylaxis. Heart healthy diabetic diet. Continue with same plan of care. Monitor closely. Discussed plan of care with nursing staff and the patient. MD MADELINE Tapia/YOUNG /[id number]
--- NOTE | 2019-11-22 22:33 | Diagnostic Imaging Report ---
EXAMINATION: CHEST SINGLE (PORTABLE) INDICATION: Sob COMPARISON: CT chest 11-21-2019. FINDINGS: TUBES and LINES: None. LUNGS/PLEURA: Lungs are well inflated. Bilateral perihilar and interstitial opacities. Patchy and hazy opacities in the lower lungs. Small bilateral pleural effusions. No evidence of pneumothorax. HEART AND MEDIASTINUM: The cardiomediastinal silhouette is mildly enlarged. BONES AND SOFT TISSUES: No acute osseous lesion. Soft tissues are unremarkable. UPPER ABDOMEN: No free air under the diaphragm. IMPRESSION: Pulmonary interstitial and alveolar edema with small bilateral pleural effusions and lower lung zone opacities, which may represent atelectasis or pneumonia in the appropriate clinical setting. Signed by: Dr. Jamaal Antonio MD on 11/22/2019 10:29 PM
[2019-11-23] VITALS (8 sets, daily range): BP systolic 117–152; BP diastolic 46–70
--- NOTE | 2019-11-23 | NUR ---
Patient up to bedside commode. Had med BM. Placed back on bipap.
--- NOTE | 2019-11-23 04:46 | NUR ---
Patient resting quitly at this time. Continue monitor.
[2019-11-23 05:54] LABS: BASOPHILS % 0.3 % (0.0-1.0); EOSINOPHILS # (AUTO) 0.2 (0.0-0.4); EOSINOPHILS % 2.6 % (0.0-6.0); HEMATOCRIT 29.7 % (34.2-44.1); HEMOGLOBIN 8.8 g/dL (12.0-16.0); LYMPHOCYTES # (AUTO) 0.9 (1.0-3.2); MEAN CORPUSCULAR HEMOGLOBIN 30.6 pg (28-32); MEAN CORPUSCULAR HGB CONC 29.6 g/dL (31-35); MEAN CORPUSCULAR VOLUME 103.1 fL (81-99); MONOCYTES # (AUTO) 0.3 (0.2-0.8); MONOCYTES % 4.2 % (4.4-11.3); NEUTROPHILS # (AUTO) 4.8 (2.1-6.9); NEUTROPHILS % 78.6 % (38.7-80.0); PLATELET COUNT 187 x10e3/uL (140-360); RED BLOOD COUNT 2.88 x10e6/uL (3.6-5.1); RED CELL DISTRIBUTION WIDTH 15.1 % (11.7-14.4)
[2019-11-23] MEDS: FUROSEMIDE INJ 10 MG/ML 4 ML VIAL IV SCH ×3 (06:00→20:24)
[2019-11-23 06:21] LABS: ANION GAP 11.7 mmol/L (8-16); CALCIUM 8.6 mg/dL (8.4-10.2); CREATININE, SERUM 1.72 mg/dL (0.57-1.11); POTASSIUM 4.7 mmol/L (3.5-5.1)
--- NOTE | 2019-11-23 07:16 | NUR ---
Called Dr Yasmin vierya. aware.
[2019-11-23] MEDS: INSULIN LISPRO 100 UNIT/1 ML 3ML VIAL SQ SCH ×7 (08:00→21:16)
[2019-11-23] MEDS: INSULIN GLARGINE 100 UNITS/ML VIAL SQ SCH (08:36)
[2019-11-23] MEDS: ASPIRIN 81 MG CHEW TAB PO SCH (08:38)
[2019-11-23] MEDS: PANTOPRAZOLE SOD 40 MG TABEC PO SCH (08:38)
[2019-11-23] MEDS ORDERED: INSULIN GLARGINE 100 UNITS/ML VIAL SQ SCH (09:00)
[2019-11-23 12:34] LABS: PLATELET ESTIMATE ADEQUATE; PLATELET MORPHOLOGY COMMENT NORMAL
[2019-11-23 12:35] LABS: BAND NEUTROPHILS % (MANUAL) 2 %; EOSINOPHILS % (MANUAL) 1 % (0-7); LYMPHOCYTES % (MANUAL) 15 % (19-48); MONOCYTES % (MANUAL) 5 % (3.4-9.0); NEUTROPHILS % (MANUAL) 77 % (40-74); RBC MORPHOLOGY COMMENT ABNORMAL
--- NOTE | 2019-11-23 15:38 | Progress Note ---
DATE: SUBJECTIVE: Ms. Toribio is feeling better. There is no new complaint. REVIEW OF SYSTEMS: HEENT: Negative. PULMONARY: Negative. CARDIAC: Negative. PHYSICAL EXAMINATION: GENERAL: She is currently alert, oriented, does not seem in acute distress. VITAL SIGNS: Stable. Currently, afebrile. HEENT: She is not icteric. NECK: Supple. CHEST: Clear. HEART: S1, S2. ABDOMEN: Soft. IMPRESSION: 1. Shortness of breath, present on admission. 2. Acute congestive heart failure. discontinue antibiotic. Continue with management as ordered per others. MD TOSHIA Brewer/YOUNG /[id number]
[2019-11-23] MEDS ORDERED: METOLAZONE 5 MG TAB PO ONE (16:30)
--- NOTE | 2019-11-23 16:36 | NUR ---
Nursing report given to Moris DIAZ.
--- NOTE | 2019-11-23 16:38 | Progress Note ---
DATE: 11/23/2019 Medicine Progress Note SUBJECTIVE: The patient is doing much better today. She is on nasal cannula. She is breathing better with IV diuretics. LABORATORY DATA: White count 6.1, hemoglobin 8.8, hematocrit 29.7, platelets of 187. Chemistry, reviewed, shows sodium 144, potassium 4.7, chloride 103, bicarb 34, anion gap of 11.7. BUN 46, creatinine is 1.72, and glucose 160. MICROBIOLOGY: No growth with blood or urine. PHYSICAL EXAMINATION: VITAL SIGNS: Temperature is 98.9, pulse 74, respiratory rate is 20, blood pressure 117/70, pulse ox 98%. She is on 7 L of high-flow oxygen. GENERAL: Not in acute distress. Alert and oriented x3. Cooperative on examination. HEENT: Head; normocephalic, atraumatic. PULMONARY: Clear to auscultation bilaterally. No wheezing, no rales, no rhonchi. She is on nasal cannula. CARDIOVASCULAR: Positive S1 and S2. No murmurs, rubs, or gallops appreciated. GASTROINTESTINAL: Abdomen is soft, nondistended, and nontender to palpation. Bowel sounds present. MUSCULOSKELETAL: Strength is 5/5 throughout. No evidence of any muscle deficits on examination. No weakness appreciated. NEUROLOGIC: Cranial nerves 2 through 12 are grossly intact. No evidence of any neurological deficits on exam. SKIN: Intact, warm to touch. Good cap refill. PSYCHIATRIC: Normal affect and mood. EXTREMITIES: No edema. Good range of motion throughout. IMPRESSION: 1. Acute respiratory distress, secondary to pulmonary edema. 2. Acute exacerbation of congestive heart failure with diastolic dysfunction. 3. Community-acquired pneumonia. 4. Coronavirus PCR negative. 5. Type 2 diabetes. 6. Hypertension. 7. Morbidly obese. PLAN: 1. At this time, all cultures were found to be negative. Continue with IV antibiotics and ID is following. As for her respiratory status, she seems to have improved. She is on nasal cannula 3 L at home. She is currently at 7 L, we are improving tremendously. Continue with diuretics. I spoke with Cardiology. The patient has diastolic heart failure. PLAN: Continue with antibiotics for underlying pneumonia. All cultures were negative. ID is following. Endocrinology is following for diabetes. I spoke with Cardiology, no further workup needed. Continue with diuretics. Cardioprotective medications. Heart healthy diet. The patient is not ready for discharge at this time. Once she is breathing much better, unable to lay flat, then we will consider discharge home. MD MADELINE Tapia/MODL /[id number]
--- NOTE | 2019-11-23 16:53 | Progress Note ---
DATE: SUBJECTIVE: The patient feels better. She still has dyspnea when she lies flat. She is still requiring some oxygen. PHYSICAL EXAMINATION: VITAL SIGNS: The patient is afebrile. The vital signs are stable. HEENT: Shows no facial swelling or erythema. CARDIAC: Reveals regular rate and rhythm with a normal S1 and S2. LUNGS: Auscultation of lungs reveals rhonchorous breath sounds bilaterally. There is no wheezing. ABDOMEN: Soft, nontender. There is no rebound or guarding. EXTREMITIES: Show no leg edema or calf tenderness. There is no cyanosis or clubbing. SKIN: Shows no rashes. NEUROLOGIC: Shows no focal abnormalities. LABORATORY DATA: White blood cell count is 6.1 and hemoglobin is 8.8. The platelet count is 187. The BUN to creatinine ratio is 46 to 1.72 and the other electrolytes are within normal limits. IMPRESSION: 1. Ixqzg-iu-fsftnrt diastolic heart failure. 2. Chronic renal failure stage 3. 3. Hypertension. 4. Diabetes. 5. Obstructive sleep apnea. 6. Anemia. PLAN: 1. Repeat PA and lateral chest x-ray today. 2. Wean oxygen. 3. Continue diuretics. 4. Continue BiPAP at night and as needed. Thomas Jensen MD [facility]/LUIS FERNANDOL /[id number]
[2019-11-23] MEDS: ENOXAPARIN SOD INJ 40 MG/0.4 ML SYR SC SCH (18:59)
--- NOTE | 2019-11-23 19:20 | Consultation ---
DATE OF CONSULTATION: 11/23/2019 Cardiology Consultation REASON FOR CONSULTATION: Evaluate cardiac status. HISTORY OF PRESENT ILLNESS: Ms. Toribio is a 59-year-old lady with history of hypertension, type 2 diabetes, hypercholesterolemia, CHF diastolic and recent ATILIO ATN, was previously on hemodialysis from June of 2019 to about 2 months ago. The patient also has obstructive sleep apnea on CPAP therapy and is on 2 to 3 L nasal cannula for oxygen needs. The patient's situation became complicated about 2 to 3 weeks ago, where she needed to go out of town to visit her mother, who unfortunately . She had issues finding oxygen for transportation and had issues with her CPAP therapy. Nonetheless, she went to [place] and upon coming back, she has been trying to hold it for the past 2 weeks, progressively worsening in her breathing, short of breath with minimal activity, increasing lower extremity edema, and development of upright orthopnea. She presented with hypoxic respiratory failure and was on salvage BiPAP, which likely stabilized her condition. She was noted to be volume overloaded and has been receiving IV diuretic therapy and has improved. Today in our visit, the patient is now on 7 L oxygen via high-flow nasal cannula, but states that her breathing is much better, but still not quite at baseline. She still endorses 3 to 4 pillow orthopnea currently and has still residual swelling in her legs. The patient denies any typical angina symptoms. She has never had any prior cardiac catheterization or ischemic evaluation in the past. The patient remains in sinus rhythm. PAST MEDICAL HISTORY: 1. Hypertension. 2. Type 2 diabetes. 3. Hypercholesterolemia. 4. Morbid obesity/obstructive sleep apnea, on CPAP therapy. 5. Previously on dialysis, now back down to a chronic kidney disease, off dialysis for 2 months. 6. Gout. PAST SURGICAL HISTORY: 1. Cholecystectomy. 2. surgery x2. FAMILY HISTORY: Mother at 85, complications for fall, had heart problems. Father in his 50s to 60s with diabetic complications. SOCIAL HISTORY: She is a former smoker, quit many years ago. Denies any alcohol or illicit drug use. ALLERGIES: LATEX AND PROMETHAZINE. HOME MEDICATIONS: Include allopurinol 100 mg daily, aspirin 81 mg daily, vitamin B12 daily, multivitamin daily, omeprazole 40 mg daily, simvastatin 20 mg daily, tramadol 50 mg q.6 hours p.r.n., Novolin 70/30, 100 units subcutaneous b.i.d. REVIEW OF SYSTEMS: GENERAL: Positive for fatigue, malaise, and weight gain. Denies any fevers or chills. HEENT: No headaches, visual complaints, sore throat, or stuffy nose. RESPIRATORY: Positive for shortness of breath at rest, wheezing, and pleuritic pain with coughing fits that are largely nonproductive. CARDIOVASCULAR: As per HPI. GI: Positive for early satiety, decreased appetite. No bright red blood per rectum, melena, or hematemesis. : Denies any dysuria or decreased urinary frequency. MUSCULOSKELETAL: Positive for arthritis and leg swelling. ENDOCRINE: Positive for diabetes. No acute or cold intolerance. HEMATOLOGY: No easy bruising. Does have anemia. NEUROLOGIC: Denies any focal weakness. Does have tingling in her legs, neuropathy. Remainder of review of systems negative otherwise mentioned. PHYSICAL EXAMINATION: VITAL SIGNS: Height of 57 inches, weight of 279 pounds, BMI is 60.4. Temperature 98.9, pulse of 74, respiratory rate 20, and blood pressure 117/70. GENERAL: This is a well-nourished, obese lady, who is currently in no apparent distress. HEENT: Normocephalic and atraumatic. Pupils are equal, round, and reactive to light. Extraocular movements are intact. Oropharynx is clear. NECK: There is slight elevation of jugular venous pulsation. No carotid bruits. CARDIOVASCULAR: Regular rate and rhythm. Normal S1 and S2. Soft 2/6 systolic murmur at the left lower sternal border. LUNGS: Show decreased bibasilar breath sounds and poor air flow. ABDOMEN: Soft, nontender, and obese. Normoactive bowel sounds. No hepatosplenomegaly. There are old surgical scars from her cholecystectomy and . BACK: No costovertebral angle tenderness. EXTREMITIES: Warm with 2+ edema to the mid shins bilaterally. Diminished pedal pulses. NEUROLOGIC: Cranial nerves 2 through 12 are grossly intact. Strength seems to be preserved and moves all 4 extremities. PSYCH: Normal fluent speech. Appropriate affect. No anxiety or delusions. LABORATORY DATA: White count of 6.2, hemoglobin 8.8, hematocrit 29.7, and platelets of 187. Sodium 144, potassium 4.7, chloride 103, bicarb 34, BUN 46, creatinine 1.72, glucose of 160, and calcium of 8.7. AST 19, ALT 14, and alkaline phosphatase 273. Total protein 7.4 and albumin of 2.9. LDL is 64. INR 0.96. UA shows 2+ protein. Coronavirus PCR on 11/21, nondetected. Chest x-ray reveals pulmonary interstitial alveolar edema with small bilateral pleural effusions. Chest CT shows no evidence of PE to the segmental level. Interstitial pulmonary edema/fluid overload. Echo reveals EF 50% to 55%, mild LVH, RV moderately dilated, and some mild to moderate RV dysfunction with inability to estimate pulmonary pressures. DIAGNOSES: 1. Acute hypoxic respiratory failure, improving. 2. Acute decompensated diastolic heart failure/right-sided heart failure. 3. Obstructive sleep apnea, on CPAP therapy/home oxygen use with questionable ability of utilizing recent history may be exacerbating the clinical picture. 4. Morbid obesity. 5. Type 2 diabetes with complications. 6. Hypercholesterolemia. 7. Chronic kidney disease with perhaps some nephrosis. PLAN/RECOMMENDATIONS: 1. From a cardiovascular standpoint, we reviewed her chart in entirety and she has had negative serial cardiac biomarkers and has ruled out for acute CO. 2. Echocardiogram reviewed showing most likely diastolic/right-sided heart failure symptoms, likely may have underlying elevated pulmonary pressures from a type 3 process. 3. We will need to continue diuretic therapy to optimize her volume state. 4. Continue home nighttime CPAP therapy. 5. Titrate her supplemental oxygen as tolerated. States that her baseline O2 level is of 2 to 3 L. 6. Due to her habitus, her exam is very hard to ascertain the level of volume overload, but believe right now, she may be hypervolemic. 7. We will continue to follow. Thank you for this referral. MD LIZ Jose/YOUNG /[id number]
--- NOTE | 2019-11-23 20:23 | NUR ---
Received change of shift report from AM nurse. Walking rounds completed.
[2019-11-23] MEDS: SIMVASTATIN 20 MG TAB PO SCH (20:25)
[2019-11-23] MEDS: CEFTRIAXONE SOD 1 GM/NS 50 ML 50 ML IV SCH (21:23)
[2019-11-23] MEDS: AZITHROMYCIN 250 MG TAB PO SCH (21:23)
--- NOTE | 2019-11-23 21:30 | NUR ---
Patient off the floor to xray. Rad. tech, resp tech and RN.
--- NOTE | 2019-11-23 22:00 | NUR ---
Patient returned to floor.
--- NOTE | 2019-11-23 22:55 | Diagnostic Imaging Report ---
EXAMINATION: CHEST 2 VIEWS INDICATION: Interstitial edema COMPARISON: CT chest 11/21/2019 and chest radiograph 11/22/2019. FINDINGS: TUBES and LINES: None. LUNGS/PLEURA: Lungs are well inflated. Bilateral perihilar and interstitial opacities, slightly increased in the right lung. Patchy and hazy opacities in the lower lungs. Small bilateral pleural effusions. No evidence of pneumothorax. HEART AND MEDIASTINUM: The cardiomediastinal silhouette is mildly enlarged. BONES AND SOFT TISSUES: No acute osseous lesion. Soft tissues are unremarkable. UPPER ABDOMEN: No free air under the diaphragm. IMPRESSION: Slightly increased opacities in the right lung. Pulmonary edema and small bilateral pleural effusions, with associated atelectasis or infection. Signed by: Dr. Jamaal Antonio MD on 11/23/2019 10:52 PM
[2019-11-24] VITALS (8 sets, daily range): BP systolic 128–156; BP diastolic 42–61
--- NOTE | 2019-11-24 00:34 | NUR ---
Patient resting quitly on bipap.
[2019-11-24 06:14] LABS: BASOPHILS % 0.3 % (0.0-1.0); EOSINOPHILS # (AUTO) 0.2 (0.0-0.4); EOSINOPHILS % 3.1 % (0.0-6.0); HEMATOCRIT 29.3 % (34.2-44.1); HEMOGLOBIN 8.8 g/dL (12.0-16.0); LYMPHOCYTES % 14.9 % (18.0-39.1); MEAN CORPUSCULAR HEMOGLOBIN 29.9 pg (28-32); MEAN CORPUSCULAR VOLUME 99.7 fL (81-99); MONOCYTES # (AUTO) 0.3 (0.2-0.8); NEUTROPHILS # (AUTO) 5.2 (2.1-6.9); NEUTROPHILS % 76.4 % (38.7-80.0); PLATELET COUNT 187 x10e3/uL (140-360); RED BLOOD COUNT 2.94 x10e6/uL (3.6-5.1); RED CELL DISTRIBUTION WIDTH 15.1 % (11.7-14.4)
--- NOTE | 2019-11-24 06:18 | NUR ---
Patient receiving a bath. Removed bipap and on o2 n/c.
[2019-11-24 06:34] LABS: ANION GAP 13.1 mmol/L (8-16); CALCIUM 8.8 mg/dL (8.4-10.2); CREATININE, SERUM 1.6 mg/dL (0.57-1.11); POTASSIUM 4.1 mmol/L (3.5-5.1)
--- NOTE | 2019-11-24 06:49 | Diagnostic Imaging Report ---
EXAMINATION: CHEST SINGLE (PORTABLE) INDICATION: SOB COMPARISON: CT chest 11/21/2019 and chest radiograph 11/23/2019. FINDINGS: TUBES and LINES: None. LUNGS/PLEURA: Bilateral perihilar and interstitial opacities, slightly increased. Patchy and hazy opacities in the lower lungs. Small bilateral pleural effusions. No evidence of pneumothorax. HEART AND MEDIASTINUM: The cardiomediastinal silhouette is mildly enlarged. BONES AND SOFT TISSUES: No acute osseous lesion. Soft tissues are unremarkable. UPPER ABDOMEN: No free air under the diaphragm. IMPRESSION: Slightly increased bilateral opacities suggestive of pulmonary edema, possibly with superimposed pneumonia. Small bilateral pleural effusions. Signed by: Dr. Jamaal Antonio MD on 11/24/2019 6:46 AM
--- NOTE | 2019-11-24 07:00 | NUR ---
bedside shift report received pt in stable condition, denies pain/sob, updated on poc voiced understanding, call light in reach will continue to monitor.
[2019-11-24] MEDS: INSULIN LISPRO 100 UNIT/1 ML 3ML VIAL SQ SCH ×7 (07:30→21:00)
[2019-11-24] MEDS: FUROSEMIDE INJ 10 MG/ML 4 ML VIAL IV SCH ×2 (08:00→20:09)
[2019-11-24] MEDS: PANTOPRAZOLE SOD 40 MG TABEC PO SCH (08:00)
[2019-11-24] MEDS: INSULIN GLARGINE 100 UNITS/ML VIAL SQ SCH (08:00)
[2019-11-24] MEDS: ASPIRIN 81 MG CHEW TAB PO SCH (08:00)
--- NOTE | 2019-11-24 10:00 | NUR ---
up to bsc with assist, pt had lg rakesh bm. assisted pt to chair.
--- NOTE | 2019-11-24 11:57 | Progress Note ---
DATE: SUBJECTIVE: The patient reports some improvement. She still requires oxygen during the day and BiPAP at night. She is not complaining of fever or cough. PHYSICAL EXAMINATION: VITAL SIGNS: The blood pressure is 156/61 and saturation is 100% on 6 L. HEENT: Shows no facial swelling or erythema. CARDIAC: Reveals regular rate and rhythm with normal S1 and S2. LUNGS: Auscultation of lungs reveals clear breath sounds bilaterally. There is no wheezing. ABDOMEN: Soft and nontender. There is no rebound or guarding. EXTREMITIES: Shows no leg edema or calf tenderness. There is no cyanosis or clubbing. RADIOGRAPHIC DATA: Chest x-ray shows slightly increased bilateral opacities, suggestive of pulmonary edema. LABORATORY DATA: White blood cell count is 6.7 and the hemoglobin is 8.8. The platelet count is 187. The BUN to creatinine ratio is 47 to 1.6. The other electrolytes are within normal limits. The blood sugar is 213. IMPRESSION: 1. Wrhar-ox-nvjnvie diastolic heart failure. 2. Hypertension. 3. Type 2 diabetes. 4. Obstructive sleep apnea. 5. Chronic renal failure, stage 3. 6. Anemia. PLAN: 1. Continue diuretics. 2. Wean oxygen. 3. Continue BiPAP at night. 4. Out of bed as tolerated. Thomas Jensen MD [facility]/MODL /[id number]
--- NOTE | 2019-11-24 13:27 | Progress Note ---
DATE: SUBJECTIVE: Ms. Toribio is feeling better. There is no new complaint. Her blood cultures came back negative. Her white count 6.78. REVIEW OF SYSTEMS: Otherwise unremarkable. PHYSICAL EXAMINATION: GENERAL: She is currently alert and oriented. VITAL SIGNS: Stable, afebrile. HEENT: She is not icteric. NECK: Supple. CHEST: Clear bilateral. HEART: S1 and S2. No S3, S4, or murmurs. ABDOMEN: Soft. IMPRESSION: I think the patient with fluid overload. We will discontinue antibiotic. Further recommendations to follow. Stable from Infectious Disease. MD TOSHIA Brewer/MODL /[id number]
[2019-11-24] MEDS ORDERED: FUROSEMIDE INJ 10 MG/ML 4 ML VIAL IV ONE (15:30)
--- NOTE | 2019-11-24 15:30 | NUR ---
o2 decreased from 7L to 5L, pt tolerating well, o2 sats 96% will continue to monitor
--- NOTE | 2019-11-24 16:30 | NUR ---
o2 sats 95% at 5L high flow NC, pt tolerating well
[2019-11-24] MEDS: ENOXAPARIN SOD INJ 40 MG/0.4 ML SYR SC SCH (17:00)
--- NOTE | 2019-11-24 18:22 | Progress Note ---
DATE: 11/24/2019 Medicine Progress Note SUBJECTIVE: The patient is on 7 L of oxygen. She is improving, but she is drinking too much fluids here in the hospital. Despite she has been volume restricted at home, she tends to get more ice and drink more water here. I discussed with her about volume restriction. I am also going to give her another 80 of IV Lasix. She states she is feeling much better, but still needs a little bit more time. PHYSICAL EXAMINATION: VITAL SIGNS: Temperature is 98.7, pulse 77, respiratory rate is 22, blood pressure 135/44, pulse ox 100% on 6-7 L of nasal cannula. GENERAL: No acute distress. Alert and oriented x3. Cooperative on examination. HEENT: Head; normocephalic, atraumatic. Eyes; pupils are equal, round, and reactive to light bilaterally. Extraocular movements intact bilaterally. Throat; no evidence of erythema or exudates in the posterior pharynx. Has poor dentition. NECK: Supple. Good range of motion. PULMONARY: Clear to auscultation bilaterally. No wheezing, no rales, no rhonchi, no crackles appreciated. CARDIOVASCULAR: Positive S1 and S2. No murmurs, rubs, or gallops appreciated. ABDOMEN: Soft, nondistended, and nontender to palpation. Bowel sounds present. MUSCULOSKELETAL: Strength is 5/5 throughout. No evidence of any muscle deficits on examination. No weakness appreciated. SKIN: Intact. Warm to touch. Good cap refill. PSYCHIATRIC: Normal affect and mood. EXTREMITIES: No edema. Good range of motion throughout. LABORATORY DATA: Labs show white count 6.7, hemoglobin 8.8, hematocrit 29, platelets of 187. Chemistry; sodium 144, potassium 4.1, chloride 101, bicarb 34, anion gap of 13, BUN is 47, creatinine is 1.6, glucose is 103, calcium is 8.8. MICROBIOLOGY: All cultures were found to be negative. DIAGNOSTIC DATA: Chest x-ray from this morning shows evidence of slightly increased bilateral opacities suggestive of pulmonary edema, possibly superimposed pneumonia. Small bilateral pleural effusions. IMPRESSION: 1. Acute respiratory distress secondary to pulmonary edema. 2. Acute exacerbation of congestive heart failure with diastolic dysfunction. 3. Community-acquired pneumonia. 4. Coronavirus PCR negative. 5. Type 2 diabetes. 6. Hypertension. 7. Morbidly obese. PLAN: At this time, all cultures were found to be negative. Continue with IV antibiotics, which ID is following. She is still requiring almost 7 L of nasal cannula. Apparently, the patient is eating too much ice and drinking too much fluids here. I will put a volume restriction of 1.2 L in any given day. Lasix 40 mg twice daily is written. I am going to give her Lasix 80 mg IV x1. Potassium is 4.1, which is stable. She will get another dose of Lasix right now. I discussed with her about her salt intake and her fluid intake as well. At this time, Pulmonary is following as well. Continue with Lovenox for DVT prophylaxis. MD MADELINE Tapia/YOUNG /[id number]
--- NOTE | 2019-11-24 19:08 | NUR ---
Received change of shift report from AM nurse. Walking rounds completed. Patient sitting up in chair at the bedside. C/O need radhika care. Will provide once patient returns to bed.
[2019-11-24] MEDS: SIMVASTATIN 20 MG TAB PO SCH (20:09)
[2019-11-25] VITALS (7 sets, daily range): BP systolic 138–155; BP diastolic 43–56
--- NOTE | 2019-11-25 | NUR ---
Patient c/o ibanez leaking. fixed ibanez and will continue monitor for leakage.
[2019-11-25 05:12] LABS: BASOPHILS % 0.3 % (0.0-1.0); EOSINOPHILS # (AUTO) 0.3 (0.0-0.4); EOSINOPHILS % 4.2 % (0.0-6.0); HEMATOCRIT 29.2 % (34.2-44.1); HEMOGLOBIN 8.9 g/dL (12.0-16.0); LYMPHOCYTES # (AUTO) 1.1 (1.0-3.2); LYMPHOCYTES % 17.1 % (18.0-39.1); MEAN CORPUSCULAR HEMOGLOBIN 29.7 pg (28-32); MEAN CORPUSCULAR HGB CONC 30.5 g/dL (31-35); MEAN CORPUSCULAR VOLUME 97.3 fL (81-99); MONOCYTES # (AUTO) 0.4 (0.2-0.8); MONOCYTES % 5.5 % (4.4-11.3); NEUTROPHILS # (AUTO) 4.8 (2.1-6.9); NEUTROPHILS % 72.7 % (38.7-80.0); PLATELET COUNT 185 x10e3/uL (140-360); RED CELL DISTRIBUTION WIDTH 14.7 % (11.7-14.4)
[2019-11-25 05:30] LABS: ANION GAP 11.9 mmol/L (8-16); CALCIUM 8.8 mg/dL (8.4-10.2); CREATININE, SERUM 1.5 mg/dL (0.57-1.11); POTASSIUM 3.9 mmol/L (3.5-5.1)
--- NOTE | 2019-11-25 07:27 | NUR ---
Patient states ibanez not leaking.
[2019-11-25] MEDS: INSULIN LISPRO 100 UNIT/1 ML 3ML VIAL SQ SCH ×7 (07:30→20:06)
[2019-11-25] MEDS: PANTOPRAZOLE SOD 40 MG TABEC PO SCH (08:10)
[2019-11-25] MEDS: ASPIRIN 81 MG CHEW TAB PO SCH (08:10)
[2019-11-25] MEDS: FUROSEMIDE INJ 10 MG/ML 4 ML VIAL IV SCH ×2 (08:10→20:17)
[2019-11-25] MEDS: INSULIN GLARGINE 100 UNITS/ML VIAL SQ SCH (09:00)
--- NOTE | 2019-11-25 11:46 | Progress Note ---
DATE: SUBJECTIVE: The patient feels better. She did not require BiPAP last night. She is not complaining of fever or cough. PHYSICAL EXAMINATION: VITAL SIGNS: Stable. The blood pressure is 150/43 and saturation is 100% on 6 L. HEENT: Shows no facial swelling or erythema. CARDIAC: Reveals regular rate and rhythm with a normal S1 and S2. There are no murmurs or rubs heard. LUNGS: Auscultation of lungs reveals decreased breath sounds at the bases. There is no wheezing. ABDOMEN: Soft and nontender. There is no rebound or guarding. EXTREMITIES: Shows no leg edema or calf tenderness. No cyanosis or clubbing. LABORATORY DATA: White blood cell count is 6.6 and hemoglobin is 8.9. The platelet count is 185. BUN to creatinine ratio is 44 to 1.5 and the other electrolytes within normal limits. IMPRESSION: 1. Acute on chronic diastolic heart failure. 2. Type 2 diabetes. 3. Obstructive sleep apnea. 4. Hypertension. PLAN: 1. Continue diuretics. 2. Wean oxygen. 3. Continue BiPAP at night as needed. 4. Out of bed as tolerated. Thomas Jensen MD [facility]/MODL /[id number]
--- NOTE | 2019-11-25 12:01 | Progress Note ---
DATE: SUBJECTIVE: The patient is seen and evaluated. Available labs and notes reviewed. Discussed with Dr. Sun. REVIEW OF SYSTEMS: The patient overall feels much better. Breathing has improved significantly. No nausea, vomiting, fever, chills, shortness of breath, chest pain, headache, rash. PHYSICAL EXAMINATION: VITAL SIGNS: Temperature 98.4, pulse is 80, respirations 20, and blood pressure 150/43. GENERAL: Alert and oriented, no acute distress. CV: S1, S2. CHEST: Equal expansion, clear to auscultation. No acute distress. ABDOMEN: Soft, morbidly obese, nontender. HEENT: Moist. No pallor. No JVD. EXTREMITIES: Moves all with trace edema. MEDICATIONS: Reviewed from Infectious Disease point of view, the patient is on antibiotic. The patient is status post Zithromax and Rocephin for 5 days. LABORATORY STUDIES: White count is 6.59, hemoglobin 8.9, and platelet 185. Sodium 142, potassium 3.9. Creatinine 1.5. SEROLOGY: Coronavirus PCR negative on 11/21/2019 and 11/22/2019/ MICROBIOLOGY: Blood culture 11/21/2019 and urine culture 11/21/2019 are negative. RADIOLOGY STUDIES: Chest x-ray from yesterday showed slightly increased bilateral opacities, suggestive of pulmonary edema. ASSESSMENT AND PLAN: 1. Shortness of breath, improved. 2. Congestive heart failure, acute on chronic. 3. Fluid overload. 4. Diabetes. 5. Obesity. 6. Hyperlipidemia. The patient is status post antibiotics as mentioned above, currently want the patient off the antibiotics. Further management of this patient is based on daily findings on laboratory and physical examination. Overall, clinically feels great and has no complaints. Thank you for this dictation. Please refer to chart for more information. Dictated by Marco Choe PA-C (Al) Huy Sun MD /MODL /[id number]
[2019-11-25] MEDS: ACETAZOLAMIDE SODIUM 500 MG/VIAL IV SCH ×2 (15:12→20:00)
--- NOTE | 2019-11-25 15:47 | Progress Note ---
DATE: 11/25/2019 Medicine Progress Note SUBJECTIVE: The patient is doing well today. She was sitting in a chair at bedside. She is breathing much better. She is on 5 L nasal cannula. Her normal is 3 to 4 L at home. She is in a process of trying to ambulate to see if she is dyspneic. We are going to remove the Mckeon catheter. No overnight events. PHYSICAL EXAMINATION: VITAL SIGNS: Temperature is 98.2, pulse 76, respiratory rate is 16, blood pressure 139/52, pulse ox is 94%. She is on 6 L nasal cannula recorded, but she was on 5 L during my evaluation. GENERAL: Not in acute distress. Alert and oriented x3. Cooperative on exam. PULMONARY: Clear to auscultation bilaterally. No wheezing, rales, or rhonchi. No crackles appreciated. She is on 5 L nasal cannula. CARDIOVASCULAR: Positive S1 and S2. No murmurs, rubs, or gallops appreciated. ABDOMEN: Soft, nondistended, and nontender to palpation. Bowel sounds present. MUSCULOSKELETAL: Strength is 5/5 throughout. No evidence of any muscle deficits on examination. No weakness appreciated. SKIN: Intact. Warm to touch. Good cap refill. PSYCHIATRIC: Normal affect and mood. EXTREMITIES: No edema. Good range of motion throughout. LABORATORY FINDINGS: White count 6.5, hemoglobin 8.9, hematocrit 29.2, platelets of 185. Chemistry; sodium 142, potassium 3.9, chloride 97, bicarb is 37, anion gap of 11, BUN is 44, creatinine is 1.5, glucose 113, calcium is 8.8. All cultures were negative. IMAGING STUDIES: Nothing new. IMPRESSION: 1. Acute respiratory distress secondary to pulmonary edema. 2. Acute exacerbation of congestive heart failure with diastolic dysfunction. 3. Community-acquired pneumonia. 4. Coronavirus PCR negative. 5. Type 2 diabetes. 6. Hypertension. 7. Morbid obesity. PLAN: At this time, all cultures were found to be negative. She is on IV antibiotics. White count is normal. ID is following. No further workup was needed. As far as her shortness of breath, she is still on 5 L nasal cannula. Our goal is to get her back to her normal between 3 to 4 L of nasal cannula. We converted IV diuretics to oral diuretics. I have discussed with the patient to remove the Mckeon catheter and also ambulate to see if she is dyspneic on exertion. If she is doing well and she is not dyspneic, she could potentially be discharged home tomorrow. Discussed this with nursing staff. Continue with Lovenox for DVT prophylaxis. MD MADELINE Tapia/MODL /[id number]
[2019-11-25] MEDS: ENOXAPARIN SOD INJ 40 MG/0.4 ML SYR SC SCH (16:43)
--- NOTE | 2019-11-25 19:15 | NUR ---
patient received sitting up in chair at the bedside. vss. no c/o pain noted. respirations even and unlabored. /nc in use. pm assessment complete. call villarreal placed within reach. patient instructed to call for assistance when needed.
[2019-11-25] MEDS: SIMVASTATIN 20 MG TAB PO SCH (20:17)
[2019-11-26] VITALS: BP 139/57
--- NOTE | 2019-11-26 02:50 | NUR ---
ibanez d/c'd at this time without difficulty. no c/o pain noted.
[2019-11-26 04:00] VITALS: BP 126/54
[2019-11-26 05:45] LABS: BASOPHILS % 0.5 % (0.0-1.0); EOSINOPHILS # (AUTO) 0.3 (0.0-0.4); HEMATOCRIT 28.8 % (34.2-44.1); HEMOGLOBIN 9.1 g/dL (12.0-16.0); LYMPHOCYTES # (AUTO) 1.2 (1.0-3.2); LYMPHOCYTES % 18.5 % (18.0-39.1); MEAN CORPUSCULAR HEMOGLOBIN 31.8 pg (28-32); MEAN CORPUSCULAR HGB CONC 31.6 g/dL (31-35); MEAN CORPUSCULAR VOLUME 100.7 fL (81-99); MONOCYTES # (AUTO) 0.4 (0.2-0.8); MONOCYTES % 6.3 % (4.4-11.3); NEUTROPHILS # (AUTO) 4.6 (2.1-6.9); NEUTROPHILS % 70.4 % (38.7-80.0); PLATELET COUNT 174 x10e3/uL (140-360); RED BLOOD COUNT 2.86 x10e6/uL (3.6-5.1); RED CELL DISTRIBUTION WIDTH 14.5 % (11.7-14.4)
--- NOTE | 2019-11-26 06:00 | NUR ---
patient oob to bathroom with walker with assistance. patient voids without difficulty. no c/o pain noted.
[2019-11-26 06:04] LABS: ALBUMIN 2.9 g/dL (3.5-5.0); ALBUMIN/GLOBULIN RATIO 0.7 (0.8-2.0); CALCIUM 8.5 mg/dL (8.4-10.2); CREATININE, SERUM 1.59 mg/dL (0.57-1.11)
[2019-11-26] MEDS: INSULIN LISPRO 100 UNIT/1 ML 3ML VIAL SQ SCH ×4 (07:30→12:00)
[2019-11-26] MEDS: ASPIRIN 81 MG CHEW TAB PO SCH (08:04)
[2019-11-26] MEDS: PANTOPRAZOLE SOD 40 MG TABEC PO SCH (08:04)
[2019-11-26 08:09] VITALS: BP 146/66
[2019-11-26 08:27] VITALS: BP 146/66
[2019-11-26] MEDS ORDERED: BUMETANIDE 1 MG TAB PO SCH (09:00)
[2019-11-26] MEDS: INSULIN GLARGINE 100 UNITS/ML VIAL SQ SCH (09:00)
--- NOTE | 2019-11-26 11:14 | Consultation ---
DATE OF CONSULTATION: REASON FOR CONSULTATION: Shortness of breath. HISTORY OF PRESENT ILLNESS: This patient who is a 59-year-old white female with history of obesity, history of congestive heart failure. Apparently, she has been having problem with heart failure for more than 13 years, but she has not seen a physician for several months. The patient was here in June where she was on dialysis, but she really did not follow up with any doctor after that. She comes to the emergency room with 2 weeks history of progressive shortness of breath. There is no fever, no chills. She have some dry cough. The patient was tested for COVID-19 that was negative. I was asked to see her. The patient denies any fever or chills. She was started on BiPAP. She is feeling a little better now. PAST MEDICAL HISTORY: Chronic kidney disease, obesity, noncompliance. PAST SURGICAL HISTORY: Cholecystectomy, . SOCIAL HISTORY: There is no smoking, drug abuse, or alcohol abuse. FAMILY HISTORY: Hypertension. REVIEW OF SYSTEMS: Besides the shortness of breath, the weakness, the dry cough she denies any. There is no fever, no nausea, no vomiting, no diarrhea. No skin rash. HOME MEDICATIONS: Aspirin, simvastatin, allopurinol, multivitamin. PHYSICAL EXAMINATION: GENERAL: She is currently alert, oriented, does not seem to be in acute distress. VITAL SIGNS: Stable, afebrile. HEENT: She is not icteric. NECK: Supple. CHEST: Clear bilateral. COR: S1 and S2. No S3, S4, or murmur. ABDOMEN: Soft. Bowel sounds present. No tenderness. EXTREMITIES: There is edema. SKIN: There is no rash. IMAGING DATA: Her CAT scan showed bilateral pulmonary edema, fluid overload. There was concern for atelectasis versus pneumonia in the right lower lobe. The patient is currently on insulin, Neurontin, ceftriaxone, azithromycin. IMPRESSION: 1. Acute shortness of breath probably due to acute over chronic congestive heart failure, concern the patient is noncompliant. 2. Chronic kidney disease. 3. There could be a possibility of pneumonia community acquired. We will treat with Rocephin and azithromycin for now, five days as ordered. We will follow. Discussed with the patient. Discussed with medical team. Discussed with her sister. MD TOSHIA Brewer/YOUNG /[id number]
--- NOTE | 2019-11-26 11:24 | Progress Note ---
DATE: SUBJECTIVE: The patient is seen and evaluated. Available labs and notes reviewed. Discussed with staff. Discussed with the patient in details. REVIEW OF SYSTEMS: Shortness of breath improved significantly. No significant edema. No nausea, vomiting, fever, chills, chest pain, headache, rash, dysuria, or cough. PHYSICAL EXAMINATION: VITAL SIGNS: Temperature 98.9, pulse is 85, respiration 18, and blood pressure 146/66. GENERAL: Alert and oriented, very pleasant, comfortably in chair, no acute distress. CV: S1 and S2. CHEST: Equal expansion. Clear to auscultation. No acute distress. ABDOMEN: Soft and nontender. No distention. HEENT: Moist. No pallor. No JVD. EXTREMITIES: No significant edema of the lower extremities, moves all. No acute distress. MEDICATIONS: Medication list reviewed and from Infectious Disease point of view, the patient is status post IV antibiotics. LABORATORY STUDIES: White count of 6.55, hemoglobin 9.1, and platelet 174. Sodium 142, potassium 4, and creatinine 1.59. MICROBIOLOGY: Blood culture and urine culture negative on 11/20. RADIOLOGY STUDIES: No new radiology study is available. ASSESSMENT AND PLAN: 1. Shortness of breath, resolved. 2. Congestive heart failure. 3. Fluid overload. 4. Diabetes. 5. Obesity. 6. Hyperlipidemia. 7. The patient is status post IV antibiotics. Continue to monitor the patient clinically off antibiotics. The patient now also on bumetanide and Lasix. The patient is on BiPAP at night. Also, the patient has a BiPAP machine at home that uses or not, however, she has not been using it for past couple of nights secondary to not needing that. Her shortness of breath has resolved and breathing has significantly improved. Continue to monitor the patient clinically. Follow with the labs. Discussed with Dr. Sun in details. Discussed with the nurse. Please refer to chart for more information. Dictated by Marco Choe PA-C (Al) Huy Sun MD /MODL /[id number]
[2019-11-26 11:46] VITALS: BP 135/45
--- NOTE | 2019-11-26 14:15 | Progress Note ---
DATE: SUBJECTIVE: The patient feels better. She has less dyspnea. She is down to 3 L of oxygen. She did not use BiPAP last night. PHYSICAL EXAMINATION: VITAL SIGNS: The blood pressure is 135/45 and pulse is 74. Saturation is 98%. HEENT: Shows no facial swelling or erythema. CARDIAC: Reveals regular rate and rhythm with normal S1 and S2. LUNGS: Auscultation of lungs reveals clear breath sounds bilaterally. There is no wheezing. ABDOMEN: Soft and nontender. There is no rebound or guarding. EXTREMITIES: Shows no leg edema or calf tenderness. There is no cyanosis or clubbing. SKIN: Shows no rashes. NEUROLOGICAL: Shows no focal abnormalities. LABORATORY DATA: White blood cell count is 6.5 and hemoglobin is 9.1. The platelet count is 174. The BUN to creatinine ratio is 47 to 1.59. The glucose is 155 and the other electrolytes within normal limits. Albumin is 2.9. IMPRESSION: 1. Pcuxz-[id number] diastolic heart failure. 2. Obstructive sleep apnea. 3. Type 2 diabetes. 4. Hypertension. PLAN: 1. Possible discharge home today. 2. Continue current cardiac regimen. 3. Evaluate for home oxygen. 4. Continue CPAP at home. Thoams Jensen MD [facility]/MOD[facility] /[id number]
[2019-11-26] MEDS ORDERED: BASAGLAR K100 UNIT/1 SQ (14:33)
[2019-11-26] MEDS ORDERED: HUMALOG100 UNIT/3 SQ (14:34)
--- NOTE | 2019-11-26 18:11 | Discharge Summary ---
FINAL DISCHARGE DIAGNOSES: 1. Acute exacerbation of congestive heart failure with diastolic dysfunction. 2. Acute respiratory distress, secondary to pulmonary edema-resolved. 3. Community-acquired pneumonia-completed all antibiotic therapy. 4. Coronavirus PCR negative. 5. Type 2 diabetes. 6. Hypertension. 7. Morbidly obese. CONSULTANTS: We had ID, Pulmonary Critical Care, Cardiology, and Endocrinology. PHYSICAL EXAMINATION: VITAL SIGNS: Temperature is 98.7, pulse 74, respiratory rate is 18, blood pressure 135/45, and pulse ox she is 98% on 4 L nasal cannula, chronically at home oxygen at baseline. LABORATORY DATA: Labs show white count 6.5, hemoglobin 9.9, hematocrit is 28, and platelets of 174. Coagulation PT 13, INR 0.96, PTT 29. Chemistry; sodium 142, potassium 4, chloride 98, bicarb 34, anion gap of 14, BUN is 47, creatinine is 1.59, glucose is 137, calcium is 8.5. Lactic acid was 1. Normal LFTs within normal range. Alkaline phosphatase 232. CK 113. Troponins were all negative. Albumin 2.9. LDL was 64. TSH level was 2.5. Urinalysis; negative. SEROLOGY: Coronavirus x2 was found to be negative. MICROBIOLOGY: Blood cultures negative x2. Urine culture negative in final results. IMAGING STUDIES: Chest x-ray on admission shows some pulmonary interstitial edema. CT of the chest PE protocol shows no evidence of pulmonary embolism. There is some evidence of pulmonary interstitial edema appreciated throughout. There is also some opacities concerning for underlying pneumonia. There is some hepatic contour suggesting liver cirrhosis. Splenomegaly mild. Some mild peritracheal lymph nodes, likely reactive and then chest x-ray on 11/24/2019, shows some slight small bilateral pleural effusions. HOSPITAL COURSE: This is a 59-year-old female, morbidly obese with known history of heart failure, came into the ED with complaints of shortness of breath, requiring increased amount of oxygen. The patient was very noncompliant with oral diuretics at home. 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 While here, Cardiology was consulted. I spoke with Cardiology, felt this is likely to be the acute exacerbation of congestive heart failure. Recommended diuretics and cardioprotective medications. No further cardiac workup was needed. Cardiac enzymes were negative. No alarms on cardiac telemetry. Pulmonary was consulted as well for shortness of breath. He may recommend IV diuretics, which she maintained very well. She was weaned off BiPAP and weaned to nasal cannula, that she is on at home at baseline approximately 4 L. On discharge, she was on 4 L of nasal cannula. She was also treated for possible underlying pneumonia in which ID was consulted. All cultures were negative. She was on IV antibiotics. She improved throughout the hospital course. In relation to her diabetes, Endocrinology was consulted due to insulin management. Her glucose levels are better controlled. She was provided a prescription for her insulin. She reports to me that she has all her prescriptions at home and they are currently at the pharmacy that she needs to go apple picker in relation to her diuretics. She states to me she does not need any prescriptions or any diuretics needed except for the insulin that which provided to her by the bulb tester. On discharge, the patient is doing well. She is back to normal baseline with no complaints. She was cleared for discharge by all consultants. On the day of discharge, vital signs were stable. Labs were reviewed and stable. The patient is seen and evaluated examined thoroughly on the day of discharge. No other complaints. The patient verbalized understanding and agrees to plan of care to follow up accordingly as an outpatient with primary care physician in 1 week and brand communications manager in 2 weeks' time, [employer] police sergeant in 2 weeks' time, as well as bulb tester in 2 to 3 weeks time. MEDICATIONS: See med reconciliation form. DISPOSITION: Home. CONDITION: Stable. DIET: Heart healthy. In the event of any worsening symptoms, the patient advised to come back to the ED for further evaluation. Discharge summary took greater than 35 minutes. MD MADELINE Tapia/MODL /[id number]
== END 2019-11-26 17:02 | disposition home or self-care (01) | DRG 291 ==
LOC: ER 13:31 → ERHOLD 13:50 → IMCU 17:00
PROVIDERS: ADMIT Internal Medicine; ATTEND Internal Medicine
DX: I13.0 Hypertensive heart and chronic kidney disease with heart failure and stage 1 through stage 4 chronic kidney disease, or unspecified chronic kidney disease (principal); J18.9 Pneumonia, unspecified organism; I50.33 Acute on chronic diastolic (congestive) heart failure; J91.8 Pleural effusion in other conditions classified elsewhere; R06.03 Acute respiratory distress; Z11.59 Encounter for screening for other viral diseases; E11.9 Type 2 diabetes mellitus without complications; G47.33 Obstructive sleep apnea (adult) (pediatric); E11.22 Type 2 diabetes mellitus with diabetic chronic kidney disease; N18.3 Chronic kidney disease, stage 3 (moderate); D64.9 Anemia, unspecified
CPT/HCPCS: 36415; 36600; 71045; 71046; 71260; 80048; 80053; 80061; 81001; 82550; 82553; 82805; 82948; 83036; 83605; 83880; 84443; 84484; 85025; 85610; 85730; 87040; 87086; 87635; 93005; 93306; 94660; 96372; 99284; J0456; J0696; J1650; J1815; J1940; J7040; J7050